=== PATIENT | male | born 1940 | race Caucasian/White ===

== ENCOUNTER 2016-12-04 17:09 | Inpatient (IN) | payer MEDICARE ==
[2016-12-04 17:35] VITALS: BP 144/89
[2016-12-04] MEDS ORDERED: Maalox 30 mL Cup PO PRN (17:51)
[2016-12-04] MEDS ORDERED: Magnesium Hydroxide (MOM) 30 mL UDC PO PRN (17:51)
[2016-12-05] MEDS: Fish Oil 1,000 MG SGL PO SCH ×2 (08:37→08:43)
[2016-12-05] MEDS: Multivitamin Tab PO SCH (08:37)
[2016-12-05] MEDS: Ascorbic Acid/Vit B Complex Tab PO SCH (08:41)
--- NOTE | 2016-12-05 08:47 | History and Physical ---
History of Present Illness - HPI Chief Complaint: psychosis HPI: 76 year old male who presents to [facility] and transfer to [facility] for suicidal ideation. He was recently discharged from [facility]. Patient apparently wanted to kill himself according to the son. Patient has a history of depression. He was noted to have taken Haldol and Benadral along with sleeping pills thus he was brought to [facility] ER. 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 (insomnia) GI: Report: No Pertinent Hx Psych: Report: Anxiety, Depression Musculoskeletal: Report: No Pertinent Hx Rheumatologic: Report: No pertinent Hx Infectious Disease: Report: No Pertinent Hx Renal/: Report: Benign Prostatic Enlarg Endocrine: Report: No Pertinent Hx Dermatology: Report: No Pertinent Hx - Past Surgical History Past Surgical History: No pertinent Hx Family Medical History - Family Member Mother History Unknown: Yes Ethnicity: Unknown Living Status: Unknown Hx Family Cancer: (unknown) Hx Family Coronary Artery Disease: (unknown) Hx Family Congestive Heart Failure: (unknown) Hx Family Hypertension: (unknown) Hx Family Stroke: (unknown) Hx Family Diabetes: (unknown) Hx Family Seizures: (unknown) Hx Family Dementia: (unknown) Hx Family AIDS: (unknown) Hx Family COPD: (unknown) Hx Family Hepatitis: (unknown) Hx Family Psychiatric Problems: (unknown) Hx Family Tuberculosis: (unknown) Other Medical History: unknown Social History Smoke: No Alcohol: None Drugs: None Lives: Alone - Medications Home Medications: Home Medication Medication Instructions Recorded Type Gabapentin 600 mg PO QID 12/31/12 History Propranolol 10 mg PO BID 12/31/12 History QUEtiapine FUMARATE 400 mg PO HS 12/31/12 History Trazodone HCl 100 mg PO HS 12/31/12 History Vistaril 50 mg PO BID 12/31/12 History - Allergies Allergies/Adverse Reactions: Allergies Allergy/AdvReac Type Severity Reaction Status Date / Time Penicillins [PCN] Allergy Unknown UNKNOWN Verified 12/04/16 17:42 Review of Systems - Review of Systems Constitutional: Report: No Significant Eyes: Report: No Significant ENT: Report: No Significant Respiratory: Report: No Significant Cardiovascular: Report: No Significant Gastrointestinal: Report: No Significant Genitourinary: Report: No Significant Musculoskeletal: Report: No Significant Skin: Report: No Significant Neurological: Report: No Significant Physical Exam - Physical Exam HEENT: Report: Ears Nose Throat within normal limits, Pharnyx within normal limits Neck: Report: Within normal limits, Thyromegaly Cardiovascular Systems: Report: +s1/s2 noted, Regular, Rate and Rhythm Respiratory: Report: Breath Sounds are within normal limits, Clear to Auscultation of lung pavon Abdomen: Report: Non-tender to palpation Extremities: Report: Non-tender to palpation. - Assessment Assessment: depression suicidal ideation hypertension hyperlipidemia bph insomnia anxiety disorder - Plan Plan: admit to [facility] for evaluation and treatment.
--- NOTE | 2016-12-06 02:47 | Psychosocial Evaluation ---
DATE OF SERVICE: 12/04/2016 IDENTIFYING DATA: The patient is a 76-year-old male admitted for depression after overdosing on medication. CHIEF COMPLAINT: "I am frustrated." HISTORY OF PRESENT ILLNESS: This is one of multiple psychiatric hospitalizations for this patient who has been diagnosed to have major depressive disorder. The patient is being followed up by me on an outpatient basis. The patient was hospitalized recently at [facility] almost for 20 days and was discharged ____ the day of the discharge, the patient had taken an overdose on medication. The patient's family had to take him to the [facility] from where he has been admitted on 5150. During the evaluation, the patient is tearful and crying and stating that he does not know, he is confused and has been having a lot of anxiety. The patient has a tendency to ask more and more of Ativan, stating that he has pain, Ativan is the only one that has been helping him. The patient's coping skills at this time are noted to be very poor. Sleep and appetite are also noted to be very poor. PAST PSYCHIATRIC HISTORY: Please refer to the above. MEDICAL HISTORY: Physical examination is requested and done by Dr. Blas. SUBSTANCE ABUSE HISTORY: The patient denies use of any drugs or alcohol. LEGAL PROBLEMS: None at this time. STRENGTH AND ASSETS: The patient is motivated. MENTAL STATUS EXAMINATION: The patient is a 76-year-old thin built, superficially cooperative. Eye contact is poor. Mood is depressed. Affect is constricted. Insight and judgment at this time are noted to be very much impaired. Impulse control seems to be poor. Coping skills are also noted to be poor. The patient has been having difficult time to cope with the stress. No side effects to the medications are noted. The patient is alert and oriented x 3. Short-term and long-term memory noted to be fair. The patient is suicidal. The patient has ____. The patient is not homicidal. DIAGNOSTIC IMPRESSION: AXIS I: 1. Major depressive disorder, recurrent and severe. 2. Overdose on medication. AXIS II: None. AXIS III: As per the primary care physician. IMMEDIATE TREATMENT PLAN: The patient is going to be observed on inpatient unit, provided with supportive psychotherapy. The patient is going to be continued on the antidepressant medication. Family discussion is going to be requested. ESTIMATED LENGTH OF STAY: Three to five days. DISCHARGE CRITERIA: When he no longer a threat to self or others and be able to cope up with the stress. [facility]# [id number]
[2016-12-06] MEDS: Multivitamin Tab PO SCH ×2 (08:10→09:21)
[2016-12-06] MEDS: Fish Oil 1,000 MG SGL PO SCH (08:13)
[2016-12-06] MEDS: Ascorbic Acid/Vit B Complex Tab PO SCH ×2 (08:13→09:20)
--- NOTE | 2016-12-06 08:53 | General Progress Note ---
Subjective - Review of Systems Service Date: 12/06/16 Subjective: 76 year old male, complaining of constipation. Has history of BPH and on flomax. Has difficulty urinating. Objective - Physical Exam Vitals and I&O: Vital Signs Temp 98.2 F 12/06/16 06:16 Pulse 102 12/06/16 08:11 Resp 20 12/06/16 06:16 BP 153/86 12/06/16 08:11 Pulse Ox 97 12/06/16 06:16 Intake & Output 12/05/16 12/06/16 12/06/16 18:59 06:59 18:59 Intake Total 700 360 Balance 700 360 Intake: Oral 700 360 Other: # Voids 3 3 # Bowel Movements 0 Active Medications: Current Medications Acetaminophen (Tylenol) 650 mg PO Q4HR PRN PRN Reason: Mild Pain / Temp above 100 Stop: 02/02/17 17:50 Last Admin: 12/06/16 08:11 Dose: 650 mg Al Hydrox/Mg Hydrox/Simethicone (Maalox) 30 ml PO Q4HR PRN PRN Reason: GI DISTRESS Stop: 02/02/17 17:50 Last Admin: 12/06/16 05:25 Dose: 30 ml Aripiprazole (Abilify) 2 mg PO HS YASSINE PRN Reason: Protocol Stop: 02/02/17 20:59 Last Admin: 12/05/16 20:31 Dose: 2 mg Ascorbic Acid (Vitamin C) 500 mg PO DAILY [facility]INE Stop: 02/03/17 08:59 Last Admin: 12/06/16 08:10 Dose: 500 mg Atenolol (Tenormin) 25 mg PO DAILY [facility] Stop: 02/04/17 08:59 Escitalopram Oxalate (Lexapro) 20 mg PO DAILY [facility]INE PRN Reason: Protocol Stop: 02/03/17 08:59 Last Admin: 12/06/16 08:11 Dose: 20 mg Fish Oil ([place] 3) 1,000 mg PO DAILY [facility] Stop: 02/03/17 08:59 Last Admin: 12/06/16 08:13 Dose: Not Given Ibuprofen (Advil) 600 mg PO Q8HR PRN PRN Reason: Pain (Mild) Stop: 02/02/17 18:23 Lisinopril (Zestril) 20 mg PO DAILY [facility] Stop: 02/03/17 08:59 Last Admin: 12/06/16 08:11 Dose: 20 mg Loperamide HCl (Imodium) 2 mg PO Q8HR PRN PRN Reason: Diarrhea Stop: 02/02/17 18:22 Loratadine (Claritin) 10 mg PO DAILY [facility] Stop: 02/03/17 08:59 Last Admin: 12/06/16 08:11 Dose: 10 mg Lorazepam (Ativan) 0.5 mg PO Q4HR PRN; Protocol PRN Reason: Agitation Stop: 01/03/17 17:50 Last Admin: 12/05/16 20:31 Dose: 0.5 mg Magnesium Hydroxide (Milk Of Magnesia) 30 ml PO HS PRN PRN Reason: Constipation Multivitamins/Vitamin C (Theragran) 1 tab PO DAILY [facility] Stop: 02/03/17 08:59 Last Admin: 12/06/16 08:10 Dose: 1 tab Tamsulosin HCl (Flomax) 0.4 mg PO DAILY [facility] Stop: 02/03/17 08:59 Last Admin: 12/06/16 08:11 Dose: 0.4 mg Vitamin B Complex/Vitamin C (Vitamin B Complex W/C) 1 tab PO DAILY [facility] Stop: 02/03/17 08:59 Last Admin: 12/06/16 08:13 Dose: 1 tab Zolpidem Tartrate (Ambien) 5 mg PO HS PRN PRN Reason: Insomnia Stop: 02/02/17 17:50 Last Admin: 12/06/16 02:03 Dose: 5 mg General: Alert, Oriented x3, No acute distress HEENT: Atraumatic, PERRLA, EOMI Neck: Supple Cardiovascular: Regular rate, Normal S1, Normal S2 Lungs: Clear to auscultation Abdomen: Bowel sounds Extremities: no Clubbing, no Cyanosis, no Edema - Procedures Procedures: Procedures Procedure Code Date OTHER GROUP THERAPY 94.44 12/31/12 Assessment/Plan - Assessment Assessment: depression suicidal ideation hypertension elevated ... will add clonidine, will add atenolol 25mg PO daily. hyperlipidemia ... awaiting labwork bph ... awaiting labwork. insomnia ... may add vistaril for insomnia. anxiety disorder constipation ... will order stool softeners, KUB abdomen. - Plan Plan: admit to [facility] for evaluation and treatment.
--- NOTE | 2016-12-06 09:47 | Diagnostic Imaging Report ---
KUB abdominal film (portable) HISTORY: Pain There is a nonspecific gas pattern of nondilated bowel. No free. No air. Small calcifications noted in the lower pelvis most likely related phleboliths. Degenerative changes seen in the spine. IMPRESSION: 1. Nonspecific bowel gas pattern with no acute radiographic abnormalities.
--- NOTE | 2016-12-07 08:39 | General Progress Note ---
Subjective - Review of Systems Service Date: 12/07/16 Subjective: 76 year old male, complaining of constipation. KUB done yesterday was negative. Blood pressure improved on current medication. Will continue to monitor. Objective - Physical Exam Vitals and I&O: Vital Signs Temp 97.9 F 12/07/16 06:49 Pulse 92 12/07/16 06:49 Resp 19 12/07/16 06:49 BP 118/77 12/07/16 06:49 Pulse Ox 96 12/07/16 06:49 Intake & Output 12/06/16 12/07/16 12/07/16 18:59 06:59 18:59 Intake Total 950 480 Balance 950 480 Intake: Oral 950 480 Other: # Voids 4 1 # Bowel Movements 1 Active Medications: Current Medications Acetaminophen (Tylenol) 650 mg PO Q4HR PRN PRN Reason: Mild Pain / Temp above 100 Stop: 02/02/17 17:50 Last Admin: 12/06/16 21:30 Dose: 650 mg Al Hydrox/Mg Hydrox/Simethicone (Maalox) 30 ml PO Q4HR PRN PRN Reason: GI DISTRESS Stop: 02/02/17 17:50 Last Admin: 12/06/16 05:25 Dose: 30 ml Aripiprazole (Abilify) 2 mg PO HS YASSINE PRN Reason: Protocol Stop: 02/02/17 20:59 Last Admin: 12/06/16 20:38 Dose: Not Given Ascorbic Acid (Vitamin C) 500 mg PO DAILY [facility] Stop: 02/03/17 08:59 Last Admin: 12/06/16 09:21 Dose: Not Given Atenolol (Tenormin) 25 mg PO DAILY [facility] Stop: 02/04/17 08:59 Last Admin: 12/06/16 09:16 Dose: 25 mg Escitalopram Oxalate (Lexapro) 20 mg PO DAILY [facility] PRN Reason: Protocol Stop: 02/03/17 08:59 Last Admin: 12/06/16 09:20 Dose: Not Given Fish Oil ([place] 3) 1,000 mg PO DAILY [facility] Stop: 02/03/17 08:59 Last Admin: 12/06/16 08:13 Dose: Not Given Hydroxyzine Pamoate (Vistaril) 25 mg PO HS PRN; Protocol PRN Reason: Insomnia Stop: 02/04/17 08:52 Ibuprofen (Advil) 600 mg PO Q8HR PRN PRN Reason: Pain (Mild) Stop: 02/02/17 18:23 Lisinopril (Zestril) 20 mg PO DAILY [facility] Stop: 02/03/17 08:59 Last Admin: 12/06/16 08:11 Dose: 20 mg Loperamide HCl (Imodium) 2 mg PO Q8HR PRN PRN Reason: Diarrhea Stop: 02/02/17 18:22 Loratadine (Claritin) 10 mg PO DAILY [facility] Stop: 02/03/17 08:59 Last Admin: 12/06/16 09:21 Dose: Not Given Lorazepam (Ativan) 0.5 mg PO Q4HR PRN; Protocol PRN Reason: Agitation Stop: 01/03/17 17:50 Last Admin: 12/07/16 02:50 Dose: 0.5 mg Magnesium Hydroxide (Milk Of Magnesia) 30 ml PO HS PRN PRN Reason: Constipation Multivitamins/Vitamin C (Theragran) 1 tab PO DAILY [facility] Stop: 02/03/17 08:59 Last Admin: 12/06/16 09:21 Dose: Not Given Tamsulosin HCl (Flomax) 0.4 mg PO DAILY [facility] Stop: 02/03/17 08:59 Last Admin: 12/06/16 09:21 Dose: Not Given Vitamin B Complex/Vitamin C (Vitamin B Complex W/C) 1 tab PO DAILY [facility] Stop: 02/03/17 08:59 Last Admin: 12/06/16 09:20 Dose: Not Given Zolpidem Tartrate (Ambien) 5 mg PO HS PRN PRN Reason: Insomnia Stop: 02/02/17 17:50 Last Admin: 12/06/16 02:03 Dose: 5 mg General: Alert, Oriented x3, No acute distress HEENT: Atraumatic, PERRLA, EOMI Neck: Supple Cardiovascular: Regular rate, Normal S1, Normal S2 Lungs: Clear to auscultation Abdomen: Bowel sounds Extremities: no Clubbing, no Cyanosis, no Edema - Procedures Procedures: Procedures Procedure Code Date OTHER GROUP THERAPY 94.44 12/31/12 Assessment/Plan - Problem List Patient Problems: All Active Problems Anxiety (Acute) F41.9 BPH (benign prostatic hyperplasia) (Acute) N40.0 Constipation (Acute) K59.00 Depression (Acute) F32.9 Hyperlipidemia (Acute) E78.5 Hypertension (Acute) I10 Insomnia (Acute) G47.00 Psychosis (Acute) F29 Suicidal ideations (Acute) - Assessment Assessment: depression per psychiatry suicidal ideation hypertension improved ... continue meds and monitor BP. hyperlipidemia ... awaiting labwork bph ... continue Flomax insomnia ... on Ambien will add vistaril PRN. anxiety disorder ... per Psychiatry constipation ... will order stool softeners, KUB negative - Plan Plan: admit to [facility] for evaluation and treatment.
[2016-12-07] MEDS: Ascorbic Acid/Vit B Complex Tab PO SCH (09:05)
[2016-12-07] MEDS: Multivitamin Tab PO SCH (09:12)
[2016-12-07] MEDS: Fish Oil 1,000 MG SGL PO SCH (09:12)
--- NOTE | 2016-12-07 20:57 | Progress Notes ---
DATE: 12/06/2016 SUBJECTIVE: Staff was spoken to. The patient is interviewed. Mood is little bit depressed. Affect is constricted. The patient is isolative and withdrawn. The patient is stating that this hydroxyzine is not helping and ____ helping, not making him to fell comfort, but the patient is stating that he is anxious and he does not feel comfortable. The patient is also complaining of headache at this time. The patient is stating that he is not able to urinate. Coping skills at this time are noted to be very poor. The patient has been ordered to have the Ativan that is going to be given at 0.5 mg b.i.d. p.r.n. I am fully aware that the patient has been having difficultly to deal with his cancer that has been an issue for him. The patient at this time is having difficult time. The patient is going to be placed on the lorazepam 0.5 mg p.o. q.4h. p.r.n. I encouraged to verbalize the concerns rather than to act out. The patient is not ready to be discharged to a lower level of care in view of his acute depression and suicidal ideations ____. PLAN: To continue the patient with the current medications and encouraged the patient to verbalize the concerns rather than to act out. The patient has inability to pass the urine ____ staff, probably they are going to be looking for the straight catheterization. JOB# [id number]
--- NOTE | 2016-12-08 08:36 | General Progress Note ---
Subjective - Review of Systems Service Date: 12/08/16 Subjective: awake alert afebrile. Objective - Physical Exam Vitals and I&O: Vital Signs Temp 98.4 F 12/08/16 06:19 Pulse 79 12/08/16 06:19 Resp 19 12/08/16 06:19 BP 133/79 12/08/16 06:19 Pulse Ox 96 12/08/16 06:19 Intake & Output 12/07/16 12/08/16 12/08/16 18:59 06:59 18:59 Intake Total 900 360 Balance 900 360 Intake: Oral 900 360 Other: # Voids 4 3 # Bowel Movements 1 0 Active Medications: Current Medications Acetaminophen (Tylenol) 650 mg PO Q4HR PRN PRN Reason: Mild Pain / Temp above 100 Stop: 02/02/17 17:50 Last Admin: 12/07/16 09:28 Dose: 650 mg Al Hydrox/Mg Hydrox/Simethicone (Maalox) 30 ml PO Q4HR PRN PRN Reason: GI DISTRESS Stop: 02/02/17 17:50 Last Admin: 12/06/16 05:25 Dose: 30 ml Aripiprazole (Abilify) 2 mg PO HS YASSINE PRN Reason: Protocol Stop: 02/02/17 20:59 Last Admin: 12/07/16 21:02 Dose: Not Given Ascorbic Acid (Vitamin C) 500 mg PO DAILY [facility] Stop: 02/03/17 08:59 Last Admin: 12/07/16 09:12 Dose: Not Given Atenolol (Tenormin) 25 mg PO DAILY [facility] Stop: 02/04/17 08:59 Last Admin: 12/07/16 09:06 Dose: 25 mg Escitalopram Oxalate (Lexapro) 20 mg PO DAILY [facility] PRN Reason: Protocol Stop: 02/03/17 08:59 Last Admin: 12/07/16 09:12 Dose: Not Given Fish Oil ([place] 3) 1,000 mg PO DAILY [facility] Stop: 02/03/17 08:59 Last Admin: 12/07/16 09:12 Dose: Not Given Hydroxyzine Pamoate (Vistaril) 25 mg PO HS PRN; Protocol PRN Reason: Insomnia Stop: 02/04/17 08:52 Ibuprofen (Advil) 600 mg PO Q8HR PRN PRN Reason: Pain (Mild) Stop: 02/02/17 18:23 Lisinopril (Zestril) 20 mg PO DAILY [facility] Stop: 02/03/17 08:59 Last Admin: 12/07/16 09:12 Dose: Not Given Loperamide HCl (Imodium) 2 mg PO Q8HR PRN PRN Reason: Diarrhea Stop: 02/02/17 18:22 Loratadine (Claritin) 10 mg PO DAILY [facility] Stop: 02/03/17 08:59 Last Admin: 12/07/16 09:08 Dose: 10 mg Lorazepam (Ativan) 0.5 mg PO Q4HR PRN; Protocol PRN Reason: Agitation Stop: 01/03/17 17:50 Last Admin: 12/08/16 05:50 Dose: 0.5 mg Magnesium Hydroxide (Milk Of Magnesia) 30 ml PO HS PRN PRN Reason: Constipation Multivitamins/Vitamin C (Theragran) 1 tab PO DAILY [facility] Stop: 02/03/17 08:59 Last Admin: 12/07/16 09:12 Dose: Not Given Tamsulosin HCl (Flomax) 0.4 mg PO DAILY [facility] Stop: 02/03/17 08:59 Last Admin: 12/07/16 09:05 Dose: 0.4 mg Vitamin B Complex/Vitamin C (Vitamin B Complex W/C) 1 tab PO DAILY [facility] Stop: 02/03/17 08:59 Last Admin: 12/07/16 09:05 Dose: 1 tab Zolpidem Tartrate (Ambien) 5 mg PO HS PRN PRN Reason: Insomnia Stop: 02/02/17 17:50 Last Admin: 12/06/16 02:03 Dose: 5 mg General: Alert, Oriented x3, No acute distress HEENT: Atraumatic, PERRLA, EOMI Neck: Supple Cardiovascular: Regular rate, Normal S1, Normal S2 Lungs: Clear to auscultation Abdomen: Bowel sounds Extremities: no Clubbing, no Cyanosis, no Edema - Procedures Procedures: Procedures Procedure Code Date OTHER GROUP THERAPY 94.44 12/31/12 Assessment/Plan - Problem List Patient Problems: All Active Problems Anxiety (Acute) F41.9 BPH (benign prostatic hyperplasia) (Acute) N40.0 Constipation (Acute) K59.00 Depression (Acute) F32.9 Hyperlipidemia (Acute) E78.5 Hypertension (Acute) I10 Insomnia (Acute) G47.00 Psychosis (Acute) F29 Suicidal ideations (Acute) - Assessment Assessment: depression per psychiatry suicidal ideation hypertension improved ... continue meds and monitor BP. hyperlipidemia ... awaiting labwork bph ... continue Flomax insomnia ... on Ambien will add vistaril PRN. anxiety disorder ... per Psychiatry constipation ... will order stool softeners, KUB negative - Plan Plan: admit to [facility] for evaluation and treatment.
[2016-12-08] MEDS: Ascorbic Acid/Vit B Complex Tab PO SCH (08:44)
[2016-12-08] MEDS: Multivitamin Tab PO SCH (08:45)
[2016-12-08] MEDS: Fish Oil 1,000 MG SGL PO SCH (08:45)
--- NOTE | 2016-12-08 10:34 | Progress Notes ---
DATE: 12/07/2016 PSYCHIATRIC PROGRESS NOTE SUBJECTIVE: Staff was spoken to. The patient is interviewed. Mood is noted to be depressed. Affect is constricted. The patient is isolative and withdrawn. Insight and judgment are noted to be still impaired. Impulse control seems to be limited. The patient has been treated with regards to his medications. He does not like to take any hydroxyzine. He is a fixated wrongly on the Ativan. The patient's case has been discussed with ____ with regards to the medication that he has been taking. The patient has been focused on not able to urinate and patient is informed about the straight catheterization. ASSESSMENT: The patient is still depressed and suicidal and is not ready to be discharged to a lower level of care. PLAN: To continue the patient with the supportive therapy. I encouraged the patient to verbalize the concerns rather than to act out. [facility]# [id number]
--- NOTE | 2016-12-09 03:01 | Progress Notes ---
DATE: 12/08/2016 SUBJECTIVE: Staff was spoken to. The patient is interviewed. Mood is noted to be irritable. Affect is constricted. The patient has been having difficult time to cope with the stress. The patient has been pacing on the unit earlier. The patient is stating that he is feeling depressed and anxious and does not know what to do. ASSESSMENT: The patient is still depressed. PLAN: To continue the patient with Lexapro and Abilify and have a family session with his daughter who has the Durable Power of [employer] and on the phone since she is in [place] and plan for possible placement of this patient. JOB# [id number]
--- NOTE | 2016-12-09 08:27 | General Progress Note ---
Subjective - Review of Systems Service Date: 12/09/16 Subjective: awake alert afebrile. Objective - Physical Exam Vitals and I&O: Vital Signs Temp 98.6 F 12/09/16 06:13 Pulse 82 12/09/16 06:13 Resp 19 12/09/16 06:13 BP 130/81 12/09/16 06:13 Pulse Ox 96 12/09/16 06:13 Intake & Output 12/08/16 12/09/16 12/09/16 18:59 06:59 18:59 Intake Total 1400 240 Balance 1400 240 Intake: Oral 1400 240 Other: # Voids 4 3 # Bowel Movements 0 0 Active Medications: Current Medications Acetaminophen (Tylenol) 650 mg PO Q4HR PRN PRN Reason: Mild Pain / Temp above 100 Stop: 02/02/17 17:50 Last Admin: 12/09/16 02:42 Dose: 650 mg Al Hydrox/Mg Hydrox/Simethicone (Maalox) 30 ml PO Q4HR PRN PRN Reason: GI DISTRESS Stop: 02/02/17 17:50 Last Admin: 12/06/16 05:25 Dose: 30 ml Aripiprazole (Abilify) 2 mg PO HS YASSINE PRN Reason: Protocol Stop: 02/02/17 20:59 Last Admin: 12/08/16 21:18 Dose: 2 mg Ascorbic Acid (Vitamin C) 500 mg PO DAILY [facility] Stop: 02/03/17 08:59 Last Admin: 12/08/16 08:45 Dose: Not Given Atenolol (Tenormin) 25 mg PO DAILY [facility] Stop: 02/04/17 08:59 Last Admin: 12/08/16 08:46 Dose: 25 mg Escitalopram Oxalate (Lexapro) 20 mg PO DAILY [facility] PRN Reason: Protocol Stop: 02/03/17 08:59 Last Admin: 12/08/16 08:44 Dose: 20 mg Fish Oil ([place] 3) 1,000 mg PO DAILY [facility] Stop: 02/03/17 08:59 Last Admin: 12/08/16 08:45 Dose: 1,000 mg Hydroxyzine Pamoate (Vistaril) 25 mg PO HS PRN; Protocol PRN Reason: Insomnia Stop: 02/04/17 08:52 Ibuprofen (Advil) 600 mg PO Q8HR PRN PRN Reason: Pain (Mild) Stop: 02/02/17 18:23 Lisinopril (Zestril) 20 mg PO DAILY [facility] Stop: 02/03/17 08:59 Last Admin: 12/08/16 09:15 Dose: Not Given Loperamide HCl (Imodium) 2 mg PO Q8HR PRN PRN Reason: Diarrhea Stop: 02/02/17 18:22 Loratadine (Claritin) 10 mg PO DAILY [facility] Stop: 02/03/17 08:59 Last Admin: 12/08/16 08:47 Dose: 10 mg Lorazepam (Ativan) 0.5 mg PO Q4HR PRN; Protocol PRN Reason: Agitation Stop: 01/03/17 17:50 Last Admin: 12/09/16 03:12 Dose: 0.5 mg Magnesium Hydroxide (Milk Of Magnesia) 30 ml PO HS PRN PRN Reason: Constipation Multivitamins/Vitamin C (Theragran) 1 tab PO DAILY [facility] Stop: 02/03/17 08:59 Last Admin: 12/08/16 08:45 Dose: 1 tab Tamsulosin HCl (Flomax) 0.4 mg PO DAILY [facility] Stop: 02/03/17 08:59 Last Admin: 12/08/16 08:45 Dose: 0.4 mg Vitamin B Complex/Vitamin C (Vitamin B Complex W/C) 1 tab PO DAILY [facility] Stop: 02/03/17 08:59 Last Admin: 12/08/16 08:44 Dose: Not Given Zolpidem Tartrate (Ambien) 5 mg PO HS PRN PRN Reason: Insomnia Stop: 02/02/17 17:50 Last Admin: 12/06/16 02:03 Dose: 5 mg General: Alert, Oriented x3, No acute distress HEENT: Atraumatic, PERRLA, EOMI Neck: Supple Cardiovascular: Regular rate, Normal S1, Normal S2 Lungs: Clear to auscultation Abdomen: Bowel sounds Extremities: no Clubbing, no Cyanosis, no Edema - Procedures Procedures: Procedures Procedure Code Date OTHER GROUP THERAPY 94.44 12/31/12 Assessment/Plan - Problem List Patient Problems: All Active Problems Anxiety (Acute) F41.9 BPH (benign prostatic hyperplasia) (Acute) N40.0 Constipation (Acute) K59.00 Depression (Acute) F32.9 Hyperlipidemia (Acute) E78.5 Hypertension (Acute) I10 Insomnia (Acute) G47.00 Psychosis (Acute) F29 Suicidal ideations (Acute) - Assessment Assessment: depression per psychiatry suicidal ideation hypertension improved ... continue meds and monitor BP. hyperlipidemia ... awaiting labwork bph ... continue Flomax insomnia ... on Ambien will add vistaril PRN. anxiety disorder ... per Psychiatry constipation ... will order stool softeners, KUB negative - Plan Plan: admit to [facility] for evaluation and treatment.
[2016-12-09] MEDS: Fish Oil 1,000 MG SGL PO SCH (09:35)
[2016-12-09] MEDS: Multivitamin Tab PO SCH (09:35)
[2016-12-09] MEDS: Ascorbic Acid/Vit B Complex Tab PO SCH (09:36)
--- NOTE | 2016-12-10 03:51 | Progress Notes ---
DATE: 12/09/2016 SUBJECTIVE: Staff was spoken to. The patient is interviewed. Mood is noted to be depressed. Affect is constricted. The patient is refusing to comply with the medication. The patient is stating he is not depressed. He does not need any Lexapro. The patient has been focused only on the Tylenol and Ativan. The patient's insight and judgment remain very much impaired. At this time, impulse control is also noted to be very poor. The patient is gravely disabled. ASSESSMENT: The patient is still depressed. PLAN: To continue the patient with supportive therapy, encouraged the patient to verbalize the concerns rather than to act out. This behavior and possibly, the patient is going to be requested to be placed in a shelter facility. JOB# [id number]
--- NOTE | 2016-12-10 08:37 | General Progress Note ---
Subjective - Review of Systems Service Date: 12/10/16 Subjective: awake alert afebrile. Objective - Physical Exam Vitals and I&O: Vital Signs Temp 98.2 F 12/10/16 06:37 Pulse 64 12/10/16 06:37 Resp 20 12/10/16 06:37 BP 126/65 12/10/16 06:37 Pulse Ox 96 12/10/16 06:37 Intake & Output 12/09/16 12/10/16 12/10/16 18:59 06:59 18:59 Intake Total 800 240 Balance 800 240 Intake: Oral 800 240 Other: # Voids 3 3 # Bowel Movements 1 0 Active Medications: Current Medications Acetaminophen (Tylenol) 650 mg PO Q4HR PRN PRN Reason: Mild Pain / Temp above 100 Stop: 02/02/17 17:50 Last Admin: 12/10/16 05:07 Dose: 650 mg Al Hydrox/Mg Hydrox/Simethicone (Maalox) 30 ml PO Q4HR PRN PRN Reason: GI DISTRESS Stop: 02/02/17 17:50 Last Admin: 12/06/16 05:25 Dose: 30 ml Aripiprazole (Abilify) 2 mg PO HS YASSINE PRN Reason: Protocol Stop: 02/02/17 20:59 Last Admin: 12/09/16 20:30 Dose: 2 mg Ascorbic Acid (Vitamin C) 500 mg PO DAILY YASSINE Stop: 02/03/17 08:59 Last Admin: 12/09/16 09:35 Dose: 500 mg Atenolol (Tenormin) 25 mg PO DAILY YASSINE Stop: 02/04/17 08:59 Last Admin: 12/09/16 09:35 Dose: 25 mg Escitalopram Oxalate (Lexapro) 20 mg PO DAILY YASSINE PRN Reason: Protocol Stop: 02/03/17 08:59 Last Admin: 12/09/16 09:35 Dose: Not Given Fish Oil ([place] 3) 1,000 mg PO DAILY YASSINE Stop: 02/03/17 08:59 Last Admin: 12/09/16 09:35 Dose: 1,000 mg Hydroxyzine Pamoate (Vistaril) 25 mg PO HS PRN; Protocol PRN Reason: Insomnia Stop: 02/04/17 08:52 Ibuprofen (Advil) 600 mg PO Q8HR PRN PRN Reason: Pain (Mild) Stop: 02/02/17 18:23 Lisinopril (Zestril) 20 mg PO DAILY YASSINE Stop: 02/03/17 08:59 Last Admin: 12/09/16 09:35 Dose: 20 mg Loperamide HCl (Imodium) 2 mg PO Q8HR PRN PRN Reason: Diarrhea Stop: 02/02/17 18:22 Loratadine (Claritin) 10 mg PO DAILY YASSINE Stop: 02/03/17 08:59 Last Admin: 12/09/16 09:35 Dose: 10 mg Lorazepam (Ativan) 0.5 mg PO Q4HR PRN; Protocol PRN Reason: Agitation Stop: 01/03/17 17:50 Last Admin: 12/10/16 04:51 Dose: 0.5 mg Magnesium Hydroxide (Milk Of Magnesia) 30 ml PO HS PRN PRN Reason: Constipation Multivitamins/Vitamin C (Theragran) 1 tab PO DAILY YASSINE Stop: 02/03/17 08:59 Last Admin: 12/09/16 09:35 Dose: 1 tab Tamsulosin HCl (Flomax) 0.4 mg PO DAILY YASSINE Stop: 02/03/17 08:59 Last Admin: 12/09/16 09:35 Dose: 0.4 mg Vitamin B Complex/Vitamin C (Vitamin B Complex W/C) 1 tab PO DAILY YASSINE Stop: 02/03/17 08:59 Last Admin: 12/09/16 09:36 Dose: 1 tab Zolpidem Tartrate (Ambien) 5 mg PO HS PRN PRN Reason: Insomnia Stop: 02/02/17 17:50 Last Admin: 12/09/16 20:32 Dose: 5 mg General: Alert, Oriented x3, No acute distress HEENT: Atraumatic, PERRLA, EOMI Neck: Supple Cardiovascular: Regular rate, Normal S1, Normal S2 Lungs: Clear to auscultation Abdomen: Bowel sounds Extremities: no Clubbing, no Cyanosis, no Edema - Procedures Procedures: Procedures Procedure Code Date OTHER GROUP THERAPY 94.44 12/31/12 Assessment/Plan - Problem List Patient Problems: All Active Problems Anxiety (Acute) F41.9 BPH (benign prostatic hyperplasia) (Acute) N40.0 Constipation (Acute) K59.00 Depression (Acute) F32.9 Hyperlipidemia (Acute) E78.5 Hypertension (Acute) I10 Insomnia (Acute) G47.00 Psychosis (Acute) F29 Suicidal ideations (Acute) - Assessment Assessment: depression per psychiatry ... continue current treatment suicidal ideation ... continue current treatment hypertension improved ... continue meds and monitor BP. hyperlipidemia ... awaiting labwork bph ... continue Flomax insomnia ... on Ambien will add vistaril PRN. anxiety disorder ... per Psychiatry constipation ... will order stool softeners, KUB negative - Plan Plan: admit to [facility] for evaluation and treatment. Nutritional Asmnt/Malnutr-PDOC - Dietary Evaluation Malnutrition Findings (Please click <Entered> for more info): Nutritional Asmnt/Malnutrition Start: 12/09/16 14: 18 Text: Status: Complete Freq: Document 12/09/16 14:18 GSUN (Rec: 12/09/16 14:26 GSUN [email or web address]) Nutritional Asmnt/Malnutrition Patient General Information Nutritional Screening Moderate Risk Screening Diagnosis Major depressive disorder, recurrent and severe Pertinent Medical Hx/Surgical Hx HTN, insomnia, anxiety, depression, benign prostatic enlarge Subjective Information 76 year old male. Pt was agitated and ofcused on pain meds during visit, unable to obtain much meaningful information. Attempted to confirm food allergy to olmedo peppers and discuss with pt inadequate PO intake and importace of nutrition, unsucessful. Pt denied nutritional concerns at this time. Pt soon stood up and walked away. Limited physical assessment, no severe muscle fat wasting noted. Avg PO intake 59% of past 11 meals since adm, meeting 68% lower end kcal and 78% lower end prot needs. Current Diet Order/ Nutrition Support [facility] soft ground Pertinent Medications Vitamin C, [place] 3, Imodium, MOM, Theragran, vitamin B Complex W/C Pertinent Labs No current labs. Nutritional Hx/Data Height 1.83 m Height (Calculated Centimeters) 182.9 Current Weight (lbs) 79.832 kg Weight (Calculated Kilograms) 79.8 Weight (Calculated Grams) 20278.3 [place] Body Weight 178 Weight Status Approriate GI Symptoms Food Allergies Yes Skin Integrity/Comment: Natalio 20. Skin intact. Current %PO Fair (50-74%) Estimated Nutritional Goals BEE in Kcals: Using Current wt Calories/Kcals/Kg CBW 176lb/80kg Kcals Calculated 1999-2400kcal (25-30kcal/kg) Protein: Using Current wt Protein Calculated 80g (1g/kg) Fluid: ml 2000-2400ml (1ml/kcal) Nutritional Problem 1. Problem Problem Inadequate oral food beverage intake related to Etiology possibly cognition aeb Signs/Symptoms: meeting 68% lower end kcal and 78% lower end prot needs Intervention/Recommendation Comments 1. Recommend health shake TID. Avg PO intake is inadequate, meeting 68% lower end kcal and 78% lower end prot needs. Expected Outcomes/Goals Expected Outcomes/Goals 1. PO intake to meet at least 75% of estimated nutritional needs.
[2016-12-10] MEDS: Fish Oil 1,000 MG SGL PO SCH (09:13)
[2016-12-10] MEDS: Multivitamin Tab PO SCH (09:13)
[2016-12-10] MEDS: Ascorbic Acid/Vit B Complex Tab PO SCH (11:33)
--- NOTE | 2016-12-11 06:11 | Progress Notes ---
DATE: 12/10/2016 SUBJECTIVE: Staff was spoken to. The patient is interviewed. Mood is noted to be depressed. Affect is constricted. The patient is isolative and withdrawn. The patient is stating ____ anxiety and wants more and more of Ativan and Tylenol. Coping skills at this time are noted to be very poor. The patient has been presenting with the tremor, but there is nothing to be really anxious about anything. Initially, we thought that the patient has been having anxiety with regards to the cancer diagnosis. The patient seems to be more med seeking at this time. ASSESSMENT: The patient is still depressed. PLAN: To continue the patient with Lexapro and low dose of Ativan and follow the patient. Possibly patient is in need of placement. JOB# [id number]
--- NOTE | 2016-12-11 08:20 | General Progress Note ---
Subjective - Review of Systems Service Date: 12/11/16 Subjective: awake alert afebrile. Objective - Physical Exam Vitals and I&O: Vital Signs Temp 98.3 F 12/11/16 06:22 Pulse 88 12/11/16 06:22 Resp 20 12/11/16 06:22 BP 142/78 12/11/16 06:22 Pulse Ox 97 12/11/16 06:22 Intake & Output 12/10/16 12/11/16 12/11/16 18:59 06:59 18:59 Intake Total 700 120 Balance 700 120 Intake: Oral 700 120 Other: # Voids 3 3 # Bowel Movements 0 Active Medications: Current Medications Acetaminophen (Tylenol) 650 mg PO Q4HR PRN PRN Reason: Mild Pain / Temp above 100 Stop: 02/02/17 17:50 Last Admin: 12/11/16 02:01 Dose: 650 mg Al Hydrox/Mg Hydrox/Simethicone (Maalox) 30 ml PO Q4HR PRN PRN Reason: GI DISTRESS Stop: 02/02/17 17:50 Last Admin: 12/06/16 05:25 Dose: 30 ml Aripiprazole (Abilify) 2 mg PO HS YASSINE PRN Reason: Protocol Stop: 02/02/17 20:59 Last Admin: 12/10/16 21:22 Dose: Not Given Ascorbic Acid (Vitamin C) 500 mg PO DAILY YASSINE Stop: 02/03/17 08:59 Last Admin: 12/10/16 09:14 Dose: 500 mg Atenolol (Tenormin) 25 mg PO DAILY YASSINE Stop: 02/04/17 08:59 Last Admin: 12/10/16 09:14 Dose: 25 mg Escitalopram Oxalate (Lexapro) 20 mg PO DAILY YASSINE PRN Reason: Protocol Stop: 02/03/17 08:59 Last Admin: 12/10/16 09:14 Dose: 20 mg Fish Oil ([place] 3) 1,000 mg PO DAILY YASSINE Stop: 02/03/17 08:59 Last Admin: 12/10/16 09:13 Dose: 1,000 mg Hydroxyzine Pamoate (Vistaril) 25 mg PO HS PRN; Protocol PRN Reason: Insomnia Stop: 02/04/17 08:52 Ibuprofen (Advil) 600 mg PO Q8HR PRN PRN Reason: Pain (Mild) Stop: 02/02/17 18:23 Lisinopril (Zestril) 20 mg PO DAILY YASSINE Stop: 02/03/17 08:59 Last Admin: 12/10/16 09:14 Dose: 20 mg Loperamide HCl (Imodium) 2 mg PO Q8HR PRN PRN Reason: Diarrhea Stop: 02/02/17 18:22 Loratadine (Claritin) 10 mg PO DAILY YASSINE Stop: 02/03/17 08:59 Last Admin: 12/10/16 09:13 Dose: 10 mg Lorazepam (Ativan) 0.5 mg PO Q4HR PRN; Protocol PRN Reason: Agitation Stop: 01/03/17 17:50 Last Admin: 12/11/16 06:17 Dose: 0.5 mg Multivitamins/Vitamin C (Theragran) 1 tab PO DAILY YASSINE Stop: 02/03/17 08:59 Last Admin: 12/10/16 09:13 Dose: 1 tab Tamsulosin HCl (Flomax) 0.4 mg PO DAILY YASSINE Stop: 02/03/17 08:59 Last Admin: 12/10/16 09:13 Dose: 0.4 mg Vitamin B Complex/Vitamin C (Vitamin B Complex W/C) 1 tab PO DAILY YASSINE Stop: 02/03/17 08:59 Last Admin: 12/10/16 11:33 Dose: 1 tab Zolpidem Tartrate (Ambien) 5 mg PO HS PRN PRN Reason: Insomnia Stop: 02/02/17 17:50 Last Admin: 12/10/16 21:22 Dose: 5 mg General: Alert, Oriented x3, No acute distress HEENT: Atraumatic, PERRLA, EOMI Neck: Supple Cardiovascular: Regular rate, Normal S1, Normal S2 Lungs: Clear to auscultation Abdomen: Bowel sounds Extremities: no Clubbing, no Cyanosis, no Edema - Procedures Procedures: Procedures Procedure Code Date OTHER GROUP THERAPY 94.44 12/31/12 Assessment/Plan - Problem List Patient Problems: All Active Problems Anxiety (Acute) F41.9 BPH (benign prostatic hyperplasia) (Acute) N40.0 Constipation (Acute) K59.00 Depression (Acute) F32.9 Hyperlipidemia (Acute) E78.5 Hypertension (Acute) I10 Insomnia (Acute) G47.00 Psychosis (Acute) F29 Suicidal ideations (Acute) - Assessment Assessment: depression per psychiatry ... continue current treatment suicidal ideation ... continue current treatment hypertension improved ... continue meds and monitor BP. hyperlipidemia ... awaiting labwork bph ... continue Flomax insomnia ... on Ambien will add vistaril PRN. anxiety disorder ... per Psychiatry constipation ... will order stool softeners, KUB negative - Plan Plan: admit to [facility] for evaluation and treatment. Nutritional Asmnt/Malnutr-PDOC - Dietary Evaluation Malnutrition Findings (Please click <Entered> for more info): Nutritional Asmnt/Malnutrition Start: 12/09/16 14: 18 Text: Status: Complete Freq: Document 12/09/16 14:18 GSUN (Rec: 12/09/16 14:26 GSUN [email or web address]) Nutritional Asmnt/Malnutrition Patient General Information Nutritional Screening Moderate Risk Screening Diagnosis Major depressive disorder, recurrent and severe Pertinent Medical Hx/Surgical Hx HTN, insomnia, anxiety, depression, benign prostatic enlarge Subjective Information 76 year old male. Pt was agitated and ofcused on pain meds during visit, unable to obtain much meaningful information. Attempted to confirm food allergy to [place] peppers and discuss with pt inadequate PO intake and importace of nutrition, unsucessful. Pt denied nutritional concerns at this time. Pt soon stood up and walked away. Limited physical assessment, no severe muscle fat wasting noted. Avg PO intake 59% of past 11 meals since adm, meeting 68% lower end kcal and 78% lower end prot needs. Current Diet Order/ Nutrition Support [facility] soft ground Pertinent Medications Vitamin C, [place] 3, Imodium, MOM, Theragran, vitamin B Complex W/C Pertinent Labs No current labs. Nutritional Hx/Data Height 1.83 m Height (Calculated Centimeters) 182.9 Current Weight (lbs) 79.832 kg Weight (Calculated Kilograms) 79.8 Weight (Calculated Grams) 45131.3 [place] Body Weight 178 Weight Status Approriate GI Symptoms Food Allergies Yes Skin Integrity/Comment: Natalio 20. Skin intact. Current %PO Fair (50-74%) Estimated Nutritional Goals BEE in Kcals: Using Current wt Calories/Kcals/Kg CBW 176lb/80kg Kcals Calculated 2000-2400kcal (25-30kcal/kg) Protein: Using Current wt Protein Calculated 80g (1g/kg) Fluid: ml 2000-2400ml (1ml/kcal) Nutritional Problem 1. Problem Problem Inadequate oral food beverage intake related to Etiology possibly cognition aeb Signs/Symptoms: meeting 68% lower end kcal and 78% lower end prot needs Intervention/Recommendation Comments 1. Recommend health shake TID. Avg PO intake is inadequate, meeting 68% lower end kcal and 78% lower end prot needs. Expected Outcomes/Goals Expected Outcomes/Goals 1. PO intake to meet at least 75% of estimated nutritional needs.
[2016-12-11] MEDS: Multivitamin Tab PO SCH (08:32)
[2016-12-11] MEDS: Fish Oil 1,000 MG SGL PO SCH (08:33)
[2016-12-11] MEDS: Ascorbic Acid/Vit B Complex Tab PO SCH (08:38)
--- NOTE | 2016-12-11 23:13 | Progress Notes ---
DATE: 12/11/2016 SUBJECTIVE: Staff was spoken to. The patient is interviewed. Mood is depressed. Affect is constricted. Insight and judgment are still impaired. The patient is isolative and withdrawn, not able to get out of the bed. The patient has been stating it is the anxiety that is bothering him and he does not want to be on antidepressant medication. Coping skills are noted to be very poor. The patient has been isolative and withdrawn. ASSESSMENT: The patient is still depressed and suicidal. PLAN: To encourage the patient to comply with the treatment rather than to act out. JOB# [id number]
[2016-12-12] MEDS: Ascorbic Acid/Vit B Complex Tab PO SCH (08:17)
[2016-12-12] MEDS: Fish Oil 1,000 MG SGL PO SCH (08:19)
[2016-12-12] MEDS: Multivitamin Tab PO SCH (08:19)
--- NOTE | 2016-12-12 09:11 | General Progress Note ---
Subjective - Review of Systems Service Date: 12/12/16 Subjective: awake alert afebrile. Objective - Physical Exam Vitals and I&O: Vital Signs Temp 97 F 12/12/16 06:16 Pulse 85 12/12/16 08:08 Resp 20 12/12/16 06:16 BP 109/66 12/12/16 08:08 Pulse Ox 96 12/12/16 06:16 Intake & Output 12/11/16 12/12/16 12/12/16 18:59 06:59 18:59 Intake Total 1200 120 Balance 1200 120 Intake: Oral 1200 120 Other: # Voids 3 # Bowel Movements 1 Active Medications: Current Medications Acetaminophen (Tylenol) 650 mg PO Q4HR PRN PRN Reason: Mild Pain / Temp above 100 Stop: 02/02/17 17:50 Last Admin: 12/12/16 01:02 Dose: 650 mg Al Hydrox/Mg Hydrox/Simethicone (Maalox) 30 ml PO Q4HR PRN PRN Reason: GI DISTRESS Stop: 02/02/17 17:50 Last Admin: 12/06/16 05:25 Dose: 30 ml Aripiprazole (Abilify) 2 mg PO HS YASSINE PRN Reason: Protocol Stop: 02/02/17 20:59 Last Admin: 12/11/16 20:45 Dose: Not Given Ascorbic Acid (Vitamin C) 500 mg PO DAILY YASSINE Stop: 02/03/17 08:59 Last Admin: 12/12/16 08:18 Dose: 500 mg Atenolol (Tenormin) 25 mg PO DAILY YASSINE Stop: 02/04/17 08:59 Last Admin: 12/12/16 08:08 Dose: Not Given Escitalopram Oxalate (Lexapro) 20 mg PO DAILY YASSINE PRN Reason: Protocol Stop: 02/03/17 08:59 Last Admin: 12/12/16 08:18 Dose: 20 mg Fish Oil ([place] 3) 1,000 mg PO DAILY YASSINE Stop: 02/03/17 08:59 Last Admin: 12/12/16 08:19 Dose: 1,000 mg Hydroxyzine Pamoate (Vistaril) 25 mg PO HS PRN; Protocol PRN Reason: Insomnia Stop: 02/04/17 08:52 Ibuprofen (Advil) 600 mg PO Q8HR PRN PRN Reason: Pain (Mild) Stop: 02/02/17 18:23 Lisinopril (Zestril) 20 mg PO DAILY YASSINE Stop: 02/03/17 08:59 Last Admin: 12/12/16 08:08 Dose: Not Given Loperamide HCl (Imodium) 2 mg PO Q8HR PRN PRN Reason: Diarrhea Stop: 02/02/17 18:22 Loratadine (Claritin) 10 mg PO DAILY YASSINE Stop: 02/03/17 08:59 Last Admin: 12/12/16 08:19 Dose: 10 mg Lorazepam (Ativan) 0.5 mg PO Q4HR PRN; Protocol PRN Reason: Agitation Stop: 01/03/17 17:50 Last Admin: 12/12/16 04:38 Dose: 0.5 mg Multivitamins/Vitamin C (Theragran) 1 tab PO DAILY YASSINE Stop: 02/03/17 08:59 Last Admin: 12/12/16 08:19 Dose: Not Given Tamsulosin HCl (Flomax) 0.4 mg PO DAILY YASSINE Stop: 02/03/17 08:59 Last Admin: 12/12/16 08:19 Dose: 0.4 mg Vitamin B Complex/Vitamin C (Vitamin B Complex W/C) 1 tab PO DAILY YASSINE Stop: 02/03/17 08:59 Last Admin: 12/12/16 08:17 Dose: Not Given Zolpidem Tartrate (Ambien) 5 mg PO HS PRN PRN Reason: Insomnia Stop: 02/02/17 17:50 Last Admin: 12/12/16 01:03 Dose: 5 mg General: Alert, Oriented x3, No acute distress HEENT: Atraumatic, PERRLA, EOMI Neck: Supple Cardiovascular: Regular rate, Normal S1, Normal S2 Lungs: Clear to auscultation Abdomen: Bowel sounds Extremities: no Clubbing, no Cyanosis, no Edema - Procedures Procedures: Procedures Procedure Code Date OTHER GROUP THERAPY 94.44 12/31/12 Assessment/Plan - Problem List Patient Problems: All Active Problems Anxiety (Acute) F41.9 BPH (benign prostatic hyperplasia) (Acute) N40.0 Constipation (Acute) K59.00 Depression (Acute) F32.9 Hyperlipidemia (Acute) E78.5 Hypertension (Acute) I10 Insomnia (Acute) G47.00 Psychosis (Acute) F29 Suicidal ideations (Acute) - Assessment Assessment: depression per psychiatry ... continue current treatment suicidal ideation ... continue current treatment hypertension improved ... continue meds and monitor BP. hyperlipidemia ... awaiting labwork bph ... continue Flomax insomnia ... on Ambien will add vistaril PRN. anxiety disorder ... per Psychiatry constipation ... will order stool softeners, KUB negative - Plan Plan: continue current treatment. Nutritional Asmnt/Malnutr-PDOC - Dietary Evaluation Malnutrition Findings (Please click <Entered> for more info): Nutritional Asmnt/Malnutrition Start: 12/09/16 14: 18 Text: Status: Complete Freq: Document 12/09/16 14:18 GSUN (Rec: 12/09/16 14:26 GSUN [email or web address]) Nutritional Asmnt/Malnutrition Patient General Information Nutritional Screening Moderate Risk Screening Diagnosis Major depressive disorder, recurrent and severe Pertinent Medical Hx/Surgical Hx HTN, insomnia, anxiety, depression, benign prostatic enlarge Subjective Information 76 year old male. Pt was agitated and ofcused on pain meds during visit, unable to obtain much meaningful information. Attempted to confirm food allergy to ol[place] peppers and discuss with pt inadequate PO intake and importace of nutrition, unsucessful. Pt denied nutritional concerns at this time. Pt soon stood up and walked away. Limited physical assessment, no severe muscle fat wasting noted. Avg PO intake 59% of past 11 meals since adm, meeting 68% lower end kcal and 78% lower end prot needs. Current Diet Order/ Nutrition Support [facility] soft ground Pertinent Medications Vitamin C, [place] 3, Imodium, MOM, Theragran, vitamin B Complex W/C Pertinent Labs No current labs. Nutritional Hx/Data Height 1.83 m Height (Calculated Centimeters) 182.9 Current Weight (lbs) 79.832 kg Weight (Calculated Kilograms) 79.8 Weight (Calculated Grams) 95827.3 [place] Body Weight 178 Weight Status Approriate GI Symptoms Food Allergies Yes Skin Integrity/Comment: Natalio 20. Skin intact. Current %PO Fair (50-74%) Estimated Nutritional Goals BEE in Kcals: Using Current wt Calories/Kcals/Kg CBW 176lb/80kg Kcals Calculated 2000-2400kcal (25-30kcal/kg) Protein: Using Current wt Protein Calculated 80g (1g/kg) Fluid: ml 2000-2400ml (1ml/kcal) Nutritional Problem 1. Problem Problem Inadequate oral food beverage intake related to Etiology possibly cognition aeb Signs/Symptoms: meeting 68% lower end kcal and 78% lower end prot needs Intervention/Recommendation Comments 1. Recommend health shake TID. Avg PO intake is inadequate, meeting 68% lower end kcal and 78% lower end prot needs. Expected Outcomes/Goals Expected Outcomes/Goals 1. PO intake to meet at least 75% of estimated nutritional needs.
--- NOTE | 2016-12-13 05:32 | Progress Notes ---
DATE: 12/12/2016 SUBJECTIVE: Staff was spoken to. The patient is interviewed. Mood is noted to be depressed. Affect is constricted. The patient's coping skills are noted to be very poor. The patient is refusing to comply with the treatment. The patient has been isolative and constantly stating that he is anxious. He needs more medication for anxiety. Apart from anxiety medication the patient is not keen on taking any of the medications. The patient's coping skills at this time are noted to be very poor. ASSESSMENT: The patient is still impulsive and not able to contract for safety. PLAN: To continue the patient with supportive therapy. I encouraged the patient to verbalize the concerns rather than to act out. Since the patient is not able to care for herself, possibly patient is going to be looked into placement into a correction facility. JOB# [id number]
--- NOTE | 2016-12-13 07:54 | General Progress Note ---
Subjective - Review of Systems Service Date: 12/13/16 Subjective: awake alert afebrile. Objective - Physical Exam Vitals and I&O: Vital Signs Temp 97.3 F 12/13/16 06:41 Pulse 96 12/13/16 06:41 Resp 20 12/13/16 06:41 BP 135/74 12/13/16 06:41 Pulse Ox 97 12/13/16 06:41 Intake & Output 12/12/16 12/13/16 12/13/16 18:59 06:59 18:59 Intake Total 1000 120 Balance 1000 120 Intake: Oral 1000 120 Other: # Voids 3 3 # Bowel Movements 1 Active Medications: Current Medications Acetaminophen (Tylenol) 650 mg PO Q4HR PRN PRN Reason: Mild Pain / Temp above 100 Stop: 02/02/17 17:50 Last Admin: 12/13/16 03:45 Dose: 650 mg Al Hydrox/Mg Hydrox/Simethicone (Maalox) 30 ml PO Q4HR PRN PRN Reason: GI DISTRESS Stop: 02/02/17 17:50 Last Admin: 12/06/16 05:25 Dose: 30 ml Aripiprazole (Abilify) 2 mg PO HS YASSINE PRN Reason: Protocol Stop: 02/02/17 20:59 Last Admin: 12/12/16 21:47 Dose: 2 mg Ascorbic Acid (Vitamin C) 500 mg PO DAILY YASSINE Stop: 02/03/17 08:59 Last Admin: 12/12/16 08:18 Dose: 500 mg Atenolol (Tenormin) 25 mg PO DAILY YASSINE Stop: 02/04/17 08:59 Last Admin: 12/12/16 08:08 Dose: Not Given Escitalopram Oxalate (Lexapro) 20 mg PO DAILY YASSINE PRN Reason: Protocol Stop: 02/03/17 08:59 Last Admin: 12/12/16 08:18 Dose: 20 mg Fish Oil ([place] 3) 1,000 mg PO DAILY YASSINE Stop: 02/03/17 08:59 Last Admin: 12/12/16 08:19 Dose: 1,000 mg Hydroxyzine Pamoate (Vistaril) 25 mg PO HS PRN; Protocol PRN Reason: Insomnia Stop: 02/04/17 08:52 Ibuprofen (Advil) 600 mg PO Q8HR PRN PRN Reason: Pain (Mild) Stop: 02/02/17 18:23 Lisinopril (Zestril) 20 mg PO DAILY YASSINE Stop: 02/03/17 08:59 Last Admin: 12/12/16 08:08 Dose: Not Given Loperamide HCl (Imodium) 2 mg PO Q8HR PRN PRN Reason: Diarrhea Stop: 02/02/17 18:22 Loratadine (Claritin) 10 mg PO DAILY YASSINE Stop: 02/03/17 08:59 Last Admin: 12/12/16 08:19 Dose: 10 mg Lorazepam (Ativan) 0.5 mg PO Q4HR PRN; Protocol PRN Reason: Agitation Stop: 01/03/17 17:50 Last Admin: 12/12/16 18:51 Dose: 0.5 mg Multivitamins/Vitamin C (Theragran) 1 tab PO DAILY YASSINE Stop: 02/03/17 08:59 Last Admin: 12/12/16 08:19 Dose: Not Given Tamsulosin HCl (Flomax) 0.4 mg PO DAILY YASSINE Stop: 02/03/17 08:59 Last Admin: 12/12/16 08:19 Dose: 0.4 mg Vitamin B Complex/Vitamin C (Vitamin B Complex W/C) 1 tab PO DAILY YASSINE Stop: 02/03/17 08:59 Last Admin: 12/12/16 08:17 Dose: Not Given Zolpidem Tartrate (Ambien) 5 mg PO HS PRN PRN Reason: Insomnia Stop: 02/02/17 17:50 Last Admin: 12/13/16 00:11 Dose: 5 mg General: Alert, Oriented x3, No acute distress HEENT: Atraumatic, PERRLA, EOMI Neck: Supple Cardiovascular: Regular rate, Normal S1, Normal S2 Lungs: Clear to auscultation Abdomen: Bowel sounds Extremities: no Clubbing, no Cyanosis, no Edema - Procedures Procedures: Procedures Procedure Code Date OTHER GROUP THERAPY 94.44 12/31/12 Assessment/Plan - Problem List Patient Problems: All Active Problems Anxiety (Acute) F41.9 BPH (benign prostatic hyperplasia) (Acute) N40.0 Constipation (Acute) K59.00 Depression (Acute) F32.9 Hyperlipidemia (Acute) E78.5 Hypertension (Acute) I10 Insomnia (Acute) G47.00 Psychosis (Acute) F29 Suicidal ideations (Acute) - Assessment Assessment: depression per psychiatry ... continue current treatment suicidal ideation ... continue current treatment hypertension improved ... continue meds and monitor BP. hyperlipidemia ... awaiting labwork bph ... continue Flomax insomnia ... on Ambien will add vistaril PRN. anxiety disorder ... per Psychiatry constipation ... will order stool softeners, KUB negative - Plan Plan: continue current treatment. Nutritional Asmnt/Malnutr-PDOC - Dietary Evaluation Malnutrition Findings (Please click <Entered> for more info): Nutritional Asmnt/Malnutrition Start: 12/09/16 14: 18 Text: Status: Complete Freq: Document 12/09/16 14:18 GSUN (Rec: 12/09/16 14:26 GSUN [email or web address]) Nutritional Asmnt/Malnutrition Patient General Information Nutritional Screening Moderate Risk Screening Diagnosis Major depressive disorder, recurrent and severe Pertinent Medical Hx/Surgical Hx HTN, insomnia, anxiety, depression, benign prostatic enlarge Subjective Information 76 year old male. Pt was agitated and ofcused on pain meds during visit, unable to obtain much meaningful information. Attempted to confirm food allergy to olmedo peppers and discuss with pt inadequate PO intake and importace of nutrition, unsucessful. Pt denied nutritional concerns at this time. Pt soon stood up and walked away. Limited physical assessment, no severe muscle fat wasting noted. Avg PO intake 59% of past 11 meals since adm, meeting 68% lower end kcal and 78% lower end prot needs. Current Diet Order/ Nutrition Support [facility] soft ground Pertinent Medications Vitamin C, [place] 3, Imodium, MOM, Theragran, vitamin B Complex W/C Pertinent Labs No current labs. Nutritional Hx/Data Height 1.83 m Height (Calculated Centimeters) 182.9 Current Weight (lbs) 79.832 kg Weight (Calculated Kilograms) 79.8 Weight (Calculated Grams) 20546.3 [place] Body Weight 178 Weight Status Approriate GI Symptoms Food Allergies Yes Skin Integrity/Comment: Natalio 20. Skin intact. Current %PO Fair (50-74%) Estimated Nutritional Goals BEE in Kcals: Using Current wt Calories/Kcals/Kg CBW 176lb/80kg Kcals Calculated 2000-2400kcal (25-30kcal/kg) Protein: Using Current wt Protein Calculated 80g (1g/kg) Fluid: ml 2000-2400ml (1ml/kcal) Nutritional Problem 1. Problem Problem Inadequate oral food beverage intake related to Etiology possibly cognition aeb Signs/Symptoms: meeting 68% lower end kcal and 78% lower end prot needs Intervention/Recommendation Comments 1. Recommend health shake TID. Avg PO intake is inadequate, meeting 68% lower end kcal and 78% lower end prot needs. Expected Outcomes/Goals Expected Outcomes/Goals 1. PO intake to meet at least 75% of estimated nutritional needs.
[2016-12-13] MEDS: Fish Oil 1,000 MG SGL PO SCH (08:16)
[2016-12-13] MEDS: Multivitamin Tab PO SCH (08:17)
[2016-12-13] MEDS: Ascorbic Acid/Vit B Complex Tab PO SCH (08:17)
--- NOTE | 2016-12-13 23:30 | Progress Notes ---
DATE: 12/13/2016 PSYCHIATRIC PROGRESS NOTE TIME PATIENT SEEN: 9:00 a.m. SUBJECTIVE: Staff was spoken to. The patient is interviewed. Mood is noted to be irritable. Affect is constricted. The patient's coping skills are noted to be poor. The patient has been not even getting out of the bed, not even willing to take a shower. The patient's personal hygiene looked extremely poor. The patient has ____. The patient is stating that he does not feel good at all. The patient has been on Abilify 2 mg and citalopram 20 mg. The patient has been focused only on Ativan and the patient has been having difficult time to cope with the stress. The patient has been encouraged to comply with the treatment. No side effects to the medications are noted. The patient has been not able to contract for safety and hence the patient needs to be closely monitored and provided. The patient has been mentioned about placement, but the patient is stating that he has a supportive family, he wants to be there with the family, he does not want to be placed in anywhere else. ASSESSMENT: The patient is still depressed. PLAN: To continue the patient with the current medications. I encouraged the patient to verbalize the concerns rather than to act out. Please note that the patient is not ready to be transferred to a lower level of care yet. JOB# [id number]
--- NOTE | 2016-12-14 08:13 | General Progress Note ---
Subjective - Review of Systems Service Date: 12/14/16 Subjective: awake alert afebrile. Objective - Physical Exam Vitals and I&O: Vital Signs Temp 99.1 F 12/14/16 06:32 Pulse 91 12/14/16 06:32 Resp 20 12/14/16 06:32 BP 128/73 12/14/16 06:32 Pulse Ox 95 12/14/16 06:32 Intake & Output 12/13/16 12/14/16 12/14/16 18:59 06:59 18:59 Intake Total 1000 Balance 1000 Intake: Oral 1000 Other: # Voids 3 3 # Bowel Movements 0 0 Active Medications: Current Medications Acetaminophen (Tylenol) 650 mg PO Q4HR PRN PRN Reason: Mild Pain / Temp above 100 Stop: 02/02/17 17:50 Last Admin: 12/13/16 03:45 Dose: 650 mg Al Hydrox/Mg Hydrox/Simethicone (Maalox) 30 ml PO Q4HR PRN PRN Reason: GI DISTRESS Stop: 02/02/17 17:50 Last Admin: 12/06/16 05:25 Dose: 30 ml Aripiprazole (Abilify) 2 mg PO HS YASSINE PRN Reason: Protocol Stop: 02/02/17 20:59 Last Admin: 12/13/16 21:25 Dose: 2 mg Ascorbic Acid (Vitamin C) 500 mg PO DAILY YASSINE Stop: 02/03/17 08:59 Last Admin: 12/13/16 08:17 Dose: Not Given Atenolol (Tenormin) 25 mg PO DAILY YASSINE Stop: 02/04/17 08:59 Last Admin: 12/13/16 08:13 Dose: 25 mg Escitalopram Oxalate (Lexapro) 20 mg PO DAILY YASSINE PRN Reason: Protocol Stop: 02/03/17 08:59 Last Admin: 12/13/16 08:17 Dose: Not Given Fish Oil ([place] 3) 1,000 mg PO DAILY YASSINE Stop: 02/03/17 08:59 Last Admin: 12/13/16 08:16 Dose: 1,000 mg Hydroxyzine Pamoate (Vistaril) 25 mg PO Q6HR PRN; Protocol PRN Reason: Anxiety Stop: 02/11/17 10:34 Last Admin: 12/13/16 18:03 Dose: 25 mg Ibuprofen (Advil) 600 mg PO Q8HR PRN PRN Reason: Pain (Mild) Stop: 02/02/17 18:23 Last Admin: 12/13/16 18:03 Dose: 600 mg Lisinopril (Zestril) 20 mg PO DAILY [facility] Stop: 02/03/17 08:59 Last Admin: 12/13/16 08:14 Dose: Not Given Loperamide HCl (Imodium) 2 mg PO Q8HR PRN PRN Reason: Diarrhea Stop: 02/02/17 18:22 Loratadine (Claritin) 10 mg PO DAILY YASSINE Stop: 02/03/17 08:59 Last Admin: 12/13/16 08:17 Dose: 10 mg Lorazepam (Ativan) 0.5 mg PO BID PRN; Protocol PRN Reason: Agitation Stop: 02/02/17 18:28 Last Admin: 12/14/16 02:47 Dose: 0.5 mg Multivitamins/Vitamin C (Theragran) 1 tab PO DAILY YASSINE Stop: 02/03/17 08:59 Last Admin: 12/13/16 08:17 Dose: Not Given Tamsulosin HCl (Flomax) 0.4 mg PO DAILY YASSINE Stop: 02/03/17 08:59 Last Admin: 12/13/16 08:17 Dose: 0.4 mg Vitamin B Complex/Vitamin C (Vitamin B Complex W/C) 1 tab PO DAILY YASSINE Stop: 02/03/17 08:59 Last Admin: 12/13/16 08:17 Dose: Not Given Zolpidem Tartrate (Ambien) 5 mg PO HS PRN PRN Reason: Insomnia Stop: 02/02/17 17:50 Last Admin: 12/13/16 00:11 Dose: 5 mg General: Alert, Oriented x3, No acute distress HEENT: Atraumatic, PERRLA, EOMI Neck: Supple Cardiovascular: Regular rate, Normal S1, Normal S2 Lungs: Clear to auscultation Abdomen: Bowel sounds Extremities: no Clubbing, no Cyanosis, no Edema - Procedures Procedures: Procedures Procedure Code Date OTHER GROUP THERAPY 94.44 12/31/12 Assessment/Plan - Problem List Patient Problems: All Active Problems Anxiety (Acute) F41.9 BPH (benign prostatic hyperplasia) (Acute) N40.0 Constipation (Acute) K59.00 Depression (Acute) F32.9 Hyperlipidemia (Acute) E78.5 Hypertension (Acute) I10 Insomnia (Acute) G47.00 Psychosis (Acute) F29 Suicidal ideations (Acute) - Assessment Assessment: depression per psychiatry ... continue current treatment suicidal ideation ... continue current treatment hypertension improved ... continue meds and monitor BP. hyperlipidemia ... awaiting labwork bph ... continue Flomax insomnia ... on Ambien will add vistaril PRN. anxiety disorder ... per Psychiatry constipation ... will order stool softeners, KUB negative - Plan Plan: continue current treatment. Nutritional Asmnt/Malnutr-PDOC - Dietary Evaluation Malnutrition Findings (Please click <Entered> for more info): Nutritional Asmnt/Malnutrition Start: 12/09/16 14: 18 Text: Status: Complete Freq: Document 12/09/16 14:18 GSUN (Rec: 12/09/16 14:26 GSUN [email or web address]) Nutritional Asmnt/Malnutrition Patient General Information Nutritional Screening Moderate Risk Screening Diagnosis Major depressive disorder, recurrent and severe Pertinent Medical Hx/Surgical Hx HTN, insomnia, anxiety, depression, benign prostatic enlarge Subjective Information 76 year old male. Pt was agitated and ofcused on pain meds during visit, unable to obtain much meaningful information. Attempted to confirm food allergy to olmedo peppers and discuss with pt inadequate PO intake and importace of nutrition, unsucessful. Pt denied nutritional concerns at this time. Pt soon stood up and walked away. Limited physical assessment, no severe muscle fat wasting noted. Avg PO intake 59% of past 11 meals since adm, meeting 68% lower end kcal and 78% lower end prot needs. Current Diet Order/ Nutrition Support [facility] soft ground Pertinent Medications Vitamin C, [place] 3, Imodium, MOM, Theragran, vitamin B Complex W/C Pertinent Labs No current labs. Nutritional Hx/Data Height 1.83 m Height (Calculated Centimeters) 182.9 Current Weight (lbs) 79.832 kg Weight (Calculated Kilograms) 79.8 Weight (Calculated Grams) 42718.3 [place] Body Weight 178 Weight Status Approriate GI Symptoms Food Allergies Yes Skin Integrity/Comment: Natalio 20. Skin intact. Current %PO Fair (50-74%) Estimated Nutritional Goals BEE in Kcals: Using Current wt Calories/Kcals/Kg CBW 176lb/80kg Kcals Calculated 1999-2400kcal (25-30kcal/kg) Protein: Using Current wt Protein Calculated 80g (1g/kg) Fluid: ml 2000-2400ml (1ml/kcal) Nutritional Problem 1. Problem Problem Inadequate oral food beverage intake related to Etiology possibly cognition aeb Signs/Symptoms: meeting 68% lower end kcal and 78% lower end prot needs Intervention/Recommendation Comments 1. Recommend health shake TID. Avg PO intake is inadequate, meeting 68% lower end kcal and 78% lower end prot needs. Expected Outcomes/Goals Expected Outcomes/Goals 1. PO intake to meet at least 75% of estimated nutritional needs.
[2016-12-14] MEDS: Multivitamin Tab PO SCH (09:38)
[2016-12-14] MEDS: Fish Oil 1,000 MG SGL PO SCH (09:38)
[2016-12-14] MEDS: Ascorbic Acid/Vit B Complex Tab PO SCH (09:38)
--- NOTE | 2016-12-15 01:33 | Progress Notes ---
DATE: 12/14/2016 SUBJECTIVE: Staff was spoken to. The patient is interviewed. Mood is noted to be irritable. Affect is constricted. The patient's insight and judgment are noted to be still impaired. The patient is stating that he is not depressed. He should not be on the medications. He should be only on the Ativan. The patient's daughter has been spoken to in detail and has been explained about the patient's situation and his refusal to take even a shower. The patient has been isolative and withdrawn today. No side effects to the medications are noted. The patient is not able to care for self. ASSESSMENT: The patient is still depressed. PLAN: I encouraged the patient to comply with the treatment and participate in the groups. The patient's family has been advised to look for possible placement in a snf facility and the patient at this time is very reluctant to do so. Plan to closely monitor and encouraged the patient to follow through with these recommendations. [facility]# [id number]
[2016-12-15] MEDS: Ascorbic Acid/Vit B Complex Tab PO SCH (08:33)
[2016-12-15] MEDS: Multivitamin Tab PO SCH (08:33)
[2016-12-15] MEDS: Fish Oil 1,000 MG SGL PO SCH (08:33)
--- NOTE | 2016-12-15 08:37 | General Progress Note ---
Subjective - Review of Systems Service Date: 12/15/16 Subjective: awake alert afebrile. Objective - Physical Exam Vitals and I&O: Vital Signs Temp 97.9 F 12/15/16 06:26 Pulse 88 12/15/16 08:29 Resp 19 12/15/16 06:26 BP 126/74 12/15/16 08:29 Pulse Ox 96 12/15/16 06:26 Intake & Output 12/14/16 12/15/16 12/15/16 18:59 06:59 18:59 Intake Total 1600 240 Balance 1600 240 Intake: Oral 1600 240 Other: # Voids 3 4 # Bowel Movements 0 0 Active Medications: Current Medications Acetaminophen (Tylenol) 650 mg PO Q4HR PRN PRN Reason: Mild Pain / Temp above 100 Stop: 02/02/17 17:50 Last Admin: 12/13/16 03:45 Dose: 650 mg Al Hydrox/Mg Hydrox/Simethicone (Maalox) 30 ml PO Q4HR PRN PRN Reason: GI DISTRESS Stop: 02/02/17 17:50 Last Admin: 12/06/16 05:25 Dose: 30 ml Aripiprazole (Abilify) 2 mg PO HS YASSINE PRN Reason: Protocol Stop: 02/02/17 20:59 Last Admin: 12/14/16 21:36 Dose: Not Given Ascorbic Acid (Vitamin C) 500 mg PO DAILY YASSINE Stop: 02/03/17 08:59 Last Admin: 12/15/16 08:33 Dose: Not Given Atenolol (Tenormin) 25 mg PO DAILY YASSINE Stop: 02/04/17 08:59 Last Admin: 12/15/16 08:28 Dose: 25 mg Escitalopram Oxalate (Lexapro) 20 mg PO DAILY YASSINE PRN Reason: Protocol Stop: 02/03/17 08:59 Last Admin: 12/15/16 08:29 Dose: Not Given Fish Oil ([place]ol[place] 3) 1,000 mg PO DAILY YASSINE Stop: 02/03/17 08:59 Last Admin: 12/15/16 08:33 Dose: Not Given Hydroxyzine Pamoate (Vistaril) 25 mg PO Q6HR PRN; Protocol PRN Reason: Anxiety Stop: 02/11/17 10:34 Last Admin: 12/15/16 05:33 Dose: 25 mg Ibuprofen (Advil) 600 mg PO Q8HR PRN PRN Reason: Pain (Mild) Stop: 02/02/17 18:23 Last Admin: 12/13/16 18:03 Dose: 600 mg Lisinopril (Zestril) 20 mg PO DAILY YASSINE Stop: 02/03/17 08:59 Last Admin: 12/15/16 08:29 Dose: 20 mg Loperamide HCl (Imodium) 2 mg PO Q8HR PRN PRN Reason: Diarrhea Stop: 02/02/17 18:22 Loratadine (Claritin) 10 mg PO DAILY YASSINE Stop: 02/03/17 08:59 Last Admin: 12/15/16 08:27 Dose: 10 mg Lorazepam (Ativan) 0.5 mg PO BID PRN; Protocol PRN Reason: Agitation Stop: 02/02/17 18:28 Last Admin: 12/15/16 08:28 Dose: 0.5 mg Multivitamins/Vitamin C (Theragran) 1 tab PO DAILY YASSINE Stop: 02/03/17 08:59 Last Admin: 12/15/16 08:33 Dose: Not Given Tamsulosin HCl (Flomax) 0.4 mg PO DAILY YASSINE Stop: 02/03/17 08:59 Last Admin: 12/15/16 08:28 Dose: 0.4 mg Vitamin B Complex/Vitamin C (Vitamin B Complex W/C) 1 tab PO DAILY YASSINE Stop: 02/03/17 08:59 Last Admin: 12/15/16 08:33 Dose: Not Given Zolpidem Tartrate (Ambien) 5 mg PO HS PRN PRN Reason: Insomnia Stop: 02/02/17 17:50 Last Admin: 12/15/16 00:48 Dose: 5 mg General: Alert, Oriented x3, No acute distress HEENT: Atraumatic, PERRLA, EOMI Neck: Supple Cardiovascular: Regular rate, Normal S1, Normal S2 Lungs: Clear to auscultation Abdomen: Bowel sounds Extremities: no Clubbing, no Cyanosis, no Edema - Procedures Procedures: Procedures Procedure Code Date OTHER GROUP THERAPY 94.44 12/31/12 Assessment/Plan - Problem List Patient Problems: All Active Problems Anxiety (Acute) F41.9 BPH (benign prostatic hyperplasia) (Acute) N40.0 Constipation (Acute) K59.00 Depression (Acute) F32.9 Hyperlipidemia (Acute) E78.5 Hypertension (Acute) I10 Insomnia (Acute) G47.00 Psychosis (Acute) F29 Suicidal ideations (Acute) - Assessment Assessment: depression per psychiatry ... continue current treatment suicidal ideation ... continue current treatment hypertension improved ... continue meds and monitor BP. hyperlipidemia ... awaiting labwork bph ... continue Flomax insomnia ... on Ambien will add vistaril PRN. anxiety disorder ... per Psychiatry constipation ... will order stool softeners, KUB negative - Plan Plan: continue current treatment. Nutritional Asmnt/Malnutr-PDOC - Dietary Evaluation Malnutrition Findings (Please click <Entered> for more info): Nutritional Asmnt/Malnutrition Start: 12/09/16 14: 18 Text: Status: Complete Freq: Document 12/09/16 14:18 GSUN (Rec: 12/09/16 14:26 GSUN [email or web address]) Nutritional Asmnt/Malnutrition Patient General Information Nutritional Screening Moderate Risk Screening Diagnosis Major depressive disorder, recurrent and severe Pertinent Medical Hx/Surgical Hx HTN, insomnia, anxiety, depression, benign prostatic enlarge Subjective Information 76 year old male. Pt was agitated and ofcused on pain meds during visit, unable to obtain much meaningful information. Attempted to confirm food allergy to olmedo peppers and discuss with pt inadequate PO intake and importace of nutrition, unsucessful. Pt denied nutritional concerns at this time. Pt soon stood up and walked away. Limited physical assessment, no severe muscle fat wasting noted. Avg PO intake 59% of past 11 meals since adm, meeting 68% lower end kcal and 78% lower end prot needs. Current Diet Order/ Nutrition Support [facility] soft ground Pertinent Medications Vitamin C, [place] 3, Imodium, MOM, Theragran, vitamin B Complex W/C Pertinent Labs No current labs. Nutritional Hx/Data Height 1.83 m Height (Calculated Centimeters) 182.9 Current Weight (lbs) 79.832 kg Weight (Calculated Kilograms) 79.8 Weight (Calculated Grams) 95441.3 [place] Body Weight 178 Weight Status Approriate GI Symptoms Food Allergies Yes Skin Integrity/Comment: Natalio 20. Skin intact. Current %PO Fair (50-74%) Estimated Nutritional Goals BEE in Kcals: Using Current wt Calories/Kcals/Kg CBW 176lb/80kg Kcals Calculated 1999-2400kcal (25-30kcal/kg) Protein: Using Current wt Protein Calculated 80g (1g/kg) Fluid: ml 2000-2400ml (1ml/kcal) Nutritional Problem 1. Problem Problem Inadequate oral food beverage intake related to Etiology possibly cognition aeb Signs/Symptoms: meeting 68% lower end kcal and 78% lower end prot needs Intervention/Recommendation Comments 1. Recommend health shake TID. Avg PO intake is inadequate, meeting 68% lower end kcal and 78% lower end prot needs. Expected Outcomes/Goals Expected Outcomes/Goals 1. PO intake to meet at least 75% of estimated nutritional needs.
--- NOTE | 2016-12-15 21:53 | Progress Notes ---
DATE: 12/15/2016 SUBJECTIVE: Staff was spoken to. The patient is interviewed. Mood is noted to be depressed. Affect is constricted. The patient is very anxious and he stating that he is in need of more and more of the Ativan. The patient has been placed on the Vistaril because the patient has been asking for Ativan constantly. Ativan has been decreased to 0.5 mg twice a day and Vistaril has been given 25 mg q.6 h. p.r.n. The patient's family has been spoken to. The patient is not able to care for self and hence a recommendation has been made that patient can be discharged to a detention place because he is not able to care for self. JOB# [id number]
[2016-12-16] MEDS: Multivitamin Tab PO SCH (08:09)
[2016-12-16] MEDS: Fish Oil 1,000 MG SGL PO SCH (08:09)
--- NOTE | 2016-12-16 08:48 | General Progress Note ---
Subjective - Review of Systems Service Date: 12/16/16 Subjective: awake alert afebrile. Objective - Physical Exam Vitals and I&O: Vital Signs Temp 98.0 F 12/16/16 06:09 Pulse 88 12/16/16 08:09 Resp 20 12/16/16 06:09 BP 148/93 12/16/16 08:09 Pulse Ox 96 12/16/16 06:09 Intake & Output 12/15/16 12/16/16 12/16/16 18:59 06:59 18:59 Intake Total 800 480 Balance 800 480 Intake: Oral 800 480 Other: # Voids 4 2 # Bowel Movements 1 0 Active Medications: Current Medications Acetaminophen (Tylenol) 650 mg PO Q4HR PRN PRN Reason: Mild Pain / Temp above 100 Stop: 02/02/17 17:50 Last Admin: 12/16/16 08:10 Dose: 650 mg Al Hydrox/Mg Hydrox/Simethicone (Maalox) 30 ml PO Q4HR PRN PRN Reason: GI DISTRESS Stop: 02/02/17 17:50 Last Admin: 12/06/16 05:25 Dose: 30 ml Aripiprazole (Abilify) 2 mg PO HS YASSINE PRN Reason: Protocol Stop: 02/02/17 20:59 Last Admin: 12/15/16 20:54 Dose: 2 mg Ascorbic Acid (Vitamin C) 500 mg PO DAILY YASSINE Stop: 02/03/17 08:59 Last Admin: 12/16/16 08:08 Dose: 500 mg Atenolol (Tenormin) 25 mg PO DAILY YASSINE Stop: 02/04/17 08:59 Last Admin: 12/16/16 08:09 Dose: 25 mg Escitalopram Oxalate (Lexapro) 20 mg PO DAILY YASSINE PRN Reason: Protocol Stop: 02/03/17 08:59 Last Admin: 12/16/16 08:09 Dose: 20 mg Fish Oil (Ashland 3) 1,000 mg PO DAILY YASSINE Stop: 02/03/17 08:59 Last Admin: 12/16/16 08:09 Dose: 1,000 mg Hydroxyzine Pamoate (Vistaril) 25 mg PO Q6HR PRN; Protocol PRN Reason: Anxiety Stop: 02/11/17 10:34 Last Admin: 12/16/16 04:51 Dose: 25 mg Ibuprofen (Advil) 600 mg PO Q8HR PRN PRN Reason: Pain (Mild) Stop: 02/02/17 18:23 Last Admin: 12/16/16 04:51 Dose: 600 mg Lisinopril (Zestril) 20 mg PO DAILY [facility] Stop: 02/03/17 08:59 Last Admin: 12/16/16 08:09 Dose: 20 mg Loperamide HCl (Imodium) 2 mg PO Q8HR PRN PRN Reason: Diarrhea Stop: 02/02/17 18:22 Loratadine (Claritin) 10 mg PO DAILY YASSINE Stop: 02/03/17 08:59 Last Admin: 12/16/16 08:09 Dose: 10 mg Lorazepam (Ativan) 0.5 mg PO BID PRN; Protocol PRN Reason: Agitation Stop: 02/02/17 18:28 Last Admin: 12/16/16 00:22 Dose: 0.5 mg Multivitamins/Vitamin C (Theragran) 1 tab PO DAILY YASSINE Stop: 02/03/17 08:59 Last Admin: 12/16/16 08:09 Dose: 1 tab Tamsulosin HCl (Flomax) 0.4 mg PO DAILY YASSINE Stop: 02/03/17 08:59 Last Admin: 12/16/16 08:08 Dose: 0.4 mg Vitamin B Complex/Vitamin C (Vitamin B Complex W/C) 1 tab PO DAILY [facility] Stop: 02/03/17 08:59 Last Admin: 12/15/16 08:33 Dose: Not Given Zolpidem Tartrate (Ambien) 5 mg PO HS PRN PRN Reason: Insomnia Stop: 02/02/17 17:50 Last Admin: 12/15/16 20:54 Dose: 5 mg General: Alert, Oriented x3, No acute distress HEENT: Atraumatic, PERRLA, EOMI Neck: Supple Cardiovascular: Regular rate, Normal S1, Normal S2 Lungs: Clear to auscultation Abdomen: Bowel sounds Extremities: no Clubbing, no Cyanosis, no Edema - Procedures Procedures: Procedures Procedure Code Date OTHER GROUP THERAPY 94.44 12/31/12 Assessment/Plan - Problem List Patient Problems: All Active Problems Anxiety (Acute) F41.9 BPH (benign prostatic hyperplasia) (Acute) N40.0 Constipation (Acute) K59.00 Depression (Acute) F32.9 Hyperlipidemia (Acute) E78.5 Hypertension (Acute) I10 Insomnia (Acute) G47.00 Psychosis (Acute) F29 Suicidal ideations (Acute) - Assessment Assessment: depression per psychiatry ... continue current treatment suicidal ideation ... continue current treatment BP elevated today ... clonidine PRN, continue Lisinopril. hyperlipidemia ... awaiting labwork bph ... continue Flomax insomnia ... on Ambien will add vistaril PRN. anxiety disorder ... per Psychiatry constipation ... will order stool softeners, KUB negative - Plan Plan: depression per psychiatry ... continue current treatment suicidal ideation ... continue current treatment BP elevated today ... clonidine PRN, continue Lisinopril. hyperlipidemia ... awaiting labwork bph ... continue Flomax insomnia ... on Ambien will add vistaril PRN. anxiety disorder ... per Psychiatry constipation ... will order stool softeners, KUB negative Nutritional Asmnt/Malnutr-PDOC - Dietary Evaluation Malnutrition Findings (Please click <Entered> for more info): Nutritional Asmnt/Malnutrition Start: 12/09/16 14: 18 Text: Status: Complete Freq: Document 12/09/16 14:18 GSUN (Rec: 12/09/16 14:26 GSUN [email or web address]) Nutritional Asmnt/Malnutrition Patient General Information Nutritional Screening Moderate Risk Screening Diagnosis Major depressive disorder, recurrent and severe Pertinent Medical Hx/Surgical Hx HTN, insomnia, anxiety, depression, benign prostatic enlarge Subjective Information 76 year old male. Pt was agitated and ofcused on pain meds during visit, unable to obtain much meaningful information. Attempted to confirm food allergy to olmedo peppers and discuss with pt inadequate PO intake and importace of nutrition, unsucessful. Pt denied nutritional concerns at this time. Pt soon stood up and walked away. Limited physical assessment, no severe muscle fat wasting noted. Avg PO intake 59% of past 11 meals since adm, meeting 68% lower end kcal and 78% lower end prot needs. Current Diet Order/ Nutrition Support [facility] soft ground Pertinent Medications Vitamin C, [place] 3, Imodium, MOM, Theragran, vitamin B Complex W/C Pertinent Labs No current labs. Nutritional Hx/Data Height 1.83 m Height (Calculated Centimeters) 182.9 Current Weight (lbs) 79.832 kg Weight (Calculated Kilograms) 79.8 Weight (Calculated Grams) 72137.3 [place] Body Weight 178 Weight Status Approriate GI Symptoms Food Allergies Yes Skin Integrity/Comment: Natalio 20. Skin intact. Current %PO Fair (50-74%) Estimated Nutritional Goals BEE in Kcals: Using Current wt Calories/Kcals/Kg CBW 176lb/80kg Kcals Calculated 2000-2400kcal (25-30kcal/kg) Protein: Using Current wt Protein Calculated 80g (1g/kg) Fluid: ml 2000-2400ml (1ml/kcal) Nutritional Problem 1. Problem Problem Inadequate oral food beverage intake related to Etiology possibly cognition aeb Signs/Symptoms: meeting 68% lower end kcal and 78% lower end prot needs Intervention/Recommendation Comments 1. Recommend health shake TID. Avg PO intake is inadequate, meeting 68% lower end kcal and 78% lower end prot needs. Expected Outcomes/Goals Expected Outcomes/Goals 1. PO intake to meet at least 75% of estimated nutritional needs.
[2016-12-16] MEDS: Ascorbic Acid/Vit B Complex Tab PO SCH (11:52)
--- NOTE | 2016-12-17 03:16 | Progress Notes ---
DATE: 12/16/2016 SUBJECTIVE: Staff was spoken to. The patient is interviewed. Mood is very depressed. Affect is constricted. The patient is still presenting with some somatic complaints. The patient is stating that his depression is so bad and anxiety is so bad that he cannot get out of the bed. The patient has no insight into his illness. The patient for a long time has been compliant with the medication and has taken the Lexapro this morning. ASSESSMENT: The patient is still very depressed. PLAN: To increase the dose on the Abilify to 5 mg and continue the Lexapro. I encouraged the patient to verbalize the concerns rather than to act out. JOB# [id number]
--- NOTE | 2016-12-17 08:45 | General Progress Note ---
Subjective - Review of Systems Service Date: 12/17/16 Subjective: awake alert afebrile. Objective - Physical Exam Vitals and I&O: Vital Signs Temp 98.6 F 12/17/16 07:30 Pulse 100 12/17/16 07:30 Resp 19 12/17/16 07:30 BP 149/85 12/17/16 07:30 Pulse Ox 97 12/17/16 07:30 Intake & Output 12/16/16 12/17/16 12/17/16 18:59 06:59 18:59 Intake Total 950 240 Balance 950 240 Intake: Oral 950 240 Other: # Voids 4 3 # Bowel Movements 1 0 Active Medications: Current Medications Acetaminophen (Tylenol) 650 mg PO Q4HR PRN PRN Reason: Mild Pain / Temp above 100 Stop: 02/02/17 17:50 Last Admin: 12/17/16 02:09 Dose: 650 mg Al Hydrox/Mg Hydrox/Simethicone (Maalox) 30 ml PO Q4HR PRN PRN Reason: GI DISTRESS Stop: 02/02/17 17:50 Last Admin: 12/06/16 05:25 Dose: 30 ml Aripiprazole (Abilify) 5 mg PO HS YASSINE PRN Reason: Protocol Stop: 02/02/17 20:59 Last Admin: 12/16/16 21:06 Dose: 5 mg Ascorbic Acid (Vitamin C) 500 mg PO DAILY YASSINE Stop: 02/03/17 08:59 Last Admin: 12/16/16 08:08 Dose: 500 mg Escitalopram Oxalate (Lexapro) 20 mg PO DAILY YASSINE PRN Reason: Protocol Stop: 02/03/17 08:59 Last Admin: 12/16/16 08:09 Dose: 20 mg Fish Oil (Romeo 3) 1,000 mg PO DAILY YASSINE Stop: 02/03/17 08:59 Last Admin: 12/16/16 08:09 Dose: 1,000 mg Hydroxyzine Pamoate (Vistaril) 25 mg PO Q6HR PRN; Protocol PRN Reason: Anxiety Stop: 02/11/17 10:34 Last Admin: 12/16/16 04:51 Dose: 25 mg Ibuprofen (Advil) 600 mg PO Q8HR PRN PRN Reason: Pain (Mild) Stop: 02/02/17 18:23 Last Admin: 12/16/16 04:51 Dose: 600 mg Lisinopril (Zestril) 20 mg PO DAILY YASSINE Stop: 02/03/17 08:59 Last Admin: 12/16/16 08:09 Dose: 20 mg Loperamide HCl (Imodium) 2 mg PO Q8HR PRN PRN Reason: Diarrhea Stop: 02/02/17 18:22 Loratadine (Claritin) 10 mg PO DAILY YASSINE Stop: 02/03/17 08:59 Last Admin: 12/16/16 08:09 Dose: 10 mg Lorazepam (Ativan) 0.5 mg PO BID PRN; Protocol PRN Reason: Agitation Stop: 02/02/17 18:28 Last Admin: 12/17/16 07:30 Dose: 0.5 mg Multivitamins/Vitamin C (Theragran) 1 tab PO DAILY YASSINE Stop: 02/03/17 08:59 Last Admin: 12/16/16 08:09 Dose: 1 tab Tamsulosin HCl (Flomax) 0.4 mg PO DAILY YASSINE Stop: 02/03/17 08:59 Last Admin: 12/16/16 08:08 Dose: 0.4 mg Vitamin B Complex/Vitamin C (Vitamin B Complex W/C) 1 tab PO DAILY YASSINE Stop: 02/03/17 08:59 Last Admin: 12/16/16 11:52 Dose: Not Given Zolpidem Tartrate (Ambien) 5 mg PO HS PRN PRN Reason: Insomnia Stop: 02/02/17 17:50 Last Admin: 12/16/16 21:07 Dose: 5 mg General: Alert, Oriented x3, No acute distress HEENT: Atraumatic, PERRLA, EOMI Neck: Supple Cardiovascular: Regular rate, Normal S1, Normal S2 Lungs: Clear to auscultation Abdomen: Bowel sounds Extremities: no Clubbing, no Cyanosis, no Edema - Procedures Procedures: Procedures Procedure Code Date OTHER GROUP THERAPY 94.44 12/31/12 Assessment/Plan - Problem List Patient Problems: All Active Problems Anxiety (Acute) F41.9 BPH (benign prostatic hyperplasia) (Acute) N40.0 Constipation (Acute) K59.00 Depression (Acute) F32.9 Hyperlipidemia (Acute) E78.5 Hypertension (Acute) I10 Insomnia (Acute) G47.00 Psychosis (Acute) F29 Suicidal ideations (Acute) - Assessment Assessment: depression per psychiatry ... continue current treatment suicidal ideation ... continue current treatment BP elevated today ... clonidine PRN, continue Lisinopril. hyperlipidemia ... awaiting labwork bph ... continue Flomax insomnia ... on Ambien will add vistaril PRN. anxiety disorder ... per Psychiatry constipation ... will order stool softeners, KUB negative - Plan Plan: depression per psychiatry ... continue current treatment suicidal ideation ... continue current treatment BP elevated today ... clonidine PRN, continue Lisinopril. hyperlipidemia ... awaiting labwork bph ... continue Flomax insomnia ... on Ambien will add vistaril PRN. anxiety disorder ... per Psychiatry constipation ... will order stool softeners, KUB negative Nutritional Asmnt/Malnutr-PDOC - Dietary Evaluation Malnutrition Findings (Please click <Entered> for more info): Nutritional Asmnt/Malnutrition Start: 12/09/16 14: 18 Text: Status: Complete Freq: Document 12/09/16 14:18 GSUN (Rec: 12/09/16 14:26 GSUN [email or web address]) Nutritional Asmnt/Malnutrition Patient General Information Nutritional Screening Moderate Risk Screening Diagnosis Major depressive disorder, recurrent and severe Pertinent Medical Hx/Surgical Hx HTN, insomnia, anxiety, depression, benign prostatic enlarge Subjective Information 76 year old male. Pt was agitated and ofcused on pain meds during visit, unable to obtain much meaningful information. Attempted to confirm food allergy to olmedo peppers and discuss with pt inadequate PO intake and importace of nutrition, unsucessful. Pt denied nutritional concerns at this time. Pt soon stood up and walked away. Limited physical assessment, no severe muscle fat wasting noted. Avg PO intake 59% of past 11 meals since adm, meeting 68% lower end kcal and 78% lower end prot needs. Current Diet Order/ Nutrition Support [facility] [place] soft ground Pertinent Medications Vitamin C, Romeo 3, Imodium, MOM, Theragran, vitamin B Complex W/C Pertinent Labs No current labs. Nutritional Hx/Data Height 1.83 m Height (Calculated Centimeters) 182.9 Current Weight (lbs) 79.832 kg Weight (Calculated Kilograms) 79.8 Weight (Calculated Grams) 44885.3 [place] Body Weight 178 Weight Status Approriate GI Symptoms Food Allergies Yes Skin Integrity/Comment: Natalio 20. Skin intact. Current %PO Fair (50-74%) Estimated Nutritional Goals BEE in Kcals: Using Current wt Calories/Kcals/Kg CBW 176lb/80kg Kcals Calculated 1999-2400kcal (25-30kcal/kg) Protein: Using Current wt Protein Calculated 80g (1g/kg) Fluid: ml 1999-2400ml (1ml/kcal) Nutritional Problem 1. Problem Problem Inadequate oral food beverage intake related to Etiology possibly cognition aeb Signs/Symptoms: meeting 68% lower end kcal and 78% lower end prot needs Intervention/Recommendation Comments 1. Recommend health shake TID. Avg PO intake is inadequate, meeting 68% lower end kcal and 78% lower end prot needs. Expected Outcomes/Goals Expected Outcomes/Goals 1. PO intake to meet at least 75% of estimated nutritional needs.
[2016-12-17] MEDS: Fish Oil 1,000 MG SGL PO SCH (09:12)
[2016-12-17] MEDS: Ascorbic Acid/Vit B Complex Tab PO SCH (09:15)
[2016-12-17] MEDS: Multivitamin Tab PO SCH (09:24)
--- NOTE | 2016-12-18 02:23 | Progress Notes ---
DATE: 12/17/2016 SUBJECTIVE: Staff was spoken to. The patient is interviewed. Mood is noted to be irritable. Affect is constricted. Insight and judgment are noted to be still impaired. Impulse control is noted to be limited. Coping skills are noted to be limited. The patient has been having difficult time to cope with the stress. The patient is refusing to take a shower. Personal hygiene is extremely poor. The patient, however, has been asking that he needs to be on more and more of Ativan. The patient is refusing to take the blood pressure medication because even if the blood pressure is going to go down we are going to be holding off the Ativan and hence he does not want to take the blood pressure medication. ASSESSMENT AND PLAN: The patient is still depressed and patient is not able to care for self. The patient is strongly encouraged to look for a residential facility, but the patient has been back pedaling on that one. convention manager has been informed to look for placement at this time. JOB# [id number]
== END 2016-12-17 17:50 | DRG 885 ==
LOC: GERO 17:09
PROVIDERS: ADMIT Psychiatry & Neurology Psychiatry; ATTEND Psychiatry & Neurology Psychiatry
DX: F33.2 Major depressive disorder, recurrent severe without psychotic features (principal); R45.851 Suicidal ideations; I10 Essential (primary) hypertension; T50.901A Poisoning by unspecified drugs, medicaments and biological substances, accidental (unintentional), initial encounter; K59.00 Constipation, unspecified; E78.5 Hyperlipidemia, unspecified; N40.0 Benign prostatic hyperplasia without lower urinary tract symptoms; G47.00 Insomnia, unspecified; F41.9 Anxiety disorder, unspecified; Z88.0 Allergy status to penicillin
CPT/HCPCS: 74000-TC; Q0177; Z7610

== ENCOUNTER 2017-01-12 21:57 | Emergency (ER) | payer MEDICARE | END 2017-01-12 22:20 | disposition short-term general hospital (02) | LOC: ER 21:57 | DX: R45.851 Suicidal ideations (principal) ==

== ENCOUNTER 2019-07-15 17:19 | Inpatient (IN) | payer MEDICARE ==
[2019-07-15 21:53] VITALS: BP 136/91
[2019-07-15] MEDS ORDERED: Acetaminophen 500 MG TAB PO PRN (22:24)
[2019-07-15] MEDS ORDERED: Magnesium Hydroxide (MOM) 30 mL UDC PO PRN (22:24)
[2019-07-16] MEDS: Hydrocodone/APAP 10 mg/325 mg Tab PO PRN ×2 (01:14→16:31)
[2019-07-16] MEDS: Pantoprazole 40 mg EC Tab PO SCH (08:34)
--- NOTE | 2019-07-16 12:51 | Psychiatric Evaluation ---
DATE OF SERVICE: 07/16/2019 PSYCHIATRIC EVALUATION AND EXAMINATION IDENTIFYING DATA: The patient is a 78-year-old male, resident of [facility]. Information obtained by directly interviewing the patient as well as reviewing the admission papers and they are reliable. JUSTIFICATION FOR HOSPITALIZATION: The patient is admitted on a voluntary basis because of his acute depression and suicidal ideations and plans. CHIEF COMPLAINT: "I can't deal with it any longer. I want to end my life." HISTORY OF PRESENT ILLNESS: This is the one of multiple psychiatric hospitalizations for this patient who is known to me from outpatient treatment. The patient has been diagnosed to have bipolar disorder and lately has been experiencing extreme depression. The patient is reported to have sustained a fall and following which there is a fracture of the proximal humerus on the left side and from thereon the patient has been having difficult time. The patient has been in the [facility] for the past 2 months. The patient also has a history of a schwannoma and that was partially removed in 2017. The patient is reporting that he has been not able to sleep, feeling frustrated and wants to end his life. Appetite is also noted to be very poor. The patient is stating that he has been getting extremely anxious and need more and more of the Ativan. The patient is also on pain medications and the patient at this time is not able to contract for safety and hence a higher level of care is requested. PAST PSYCHIATRIC HISTORY: The patient had been hospitalized on multiple occasions. MEDICAL HISTORY: Physical examination is requested by Dr. Wheatley. SUBSTANCE ABUSE HISTORY: None. PHYSICAL OR SEXUAL ABUSE HISTORY: None. LEGAL PROBLEMS: None at this time. STRENGTH AND ASSETS: The patient is motivated. MENTAL STATUS EXAMINATION: The patient is a 78-year-old thin built, superficially cooperative. Eye contact is poor. Mood is noted to be depressed. Affect is constricted. The patient is suicidal at this time. No homicidal ideation is noted. Insight and judgment are noted to be still impaired. Impulse control is noted to be poor. Coping skills are noted to be very poor. The patient has been having difficult time to cope with the stress. The patient denies any command hallucinations, but the patient is very, very irritable, angry at this time. The patient is alert and aware that he is in the hospital. Attention span and concentration are noted to be fair. The patient is motivated to seek treatment, but the patient has a tendency to seek more and more or higher dose of the lorazepam at this time. The patient has been fully made aware of the combination of the pain medications on the lorazepam. DIAGNOSES: AXIS I: Bipolar disorder, depressed. AXIS II: None. AXIS III: As per Dr. Wheatley. IMMEDIATE TREATMENT PLAN: The patient is going to be observed on inpatient unit, provided with supportive psychotherapy. The patient is going to be closely monitored and I encouraged to participate in the groups and verbalize the concerns. Once stabilized, the patient is going to be discharged back to the [facility] for further care. JOB# [id number]
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
[2019-07-17] MEDS: Pantoprazole 40 mg EC Tab PO SCH (08:46)
[2019-07-17] MEDS: Maalox 30 mL Cup PO PRN (12:00)
--- NOTE | 2019-07-17 12:21 | Progress Notes ---
DATE: 07/17/2019 SUBJECTIVE: Staff was spoken to. The patient is interviewed. Mood is noted to be depressed. Affect is constricted. The patient is isolative and withdrawn. Insight and judgment at this time are noted to be still impaired. Impulse control is noted to be limited. Coping skills are noted to be limited. The patient has been having difficult time to get out of the bed. ASSESSMENT: The patient is severely depressed and suicidal. PLAN: To continue the patient with the current medications and follow. JOB# [id number]
--- NOTE | 2019-07-17 13:42 | Internal Medicine Prog Note ---
Internal Medicine Subjective - Subjective Service Date: 07/17/19 Patient seen and examined:: without staff Patient is:: awake Internal Medicine Objective - Results Recent Labs: Laboratory Last Values POC Glucose 115 MG/DL (70 - 105) H 07/15/19 19:59 - Physical Exam Vitals and I&O: Vital Signs Temp 98.3 F 07/17/19 06:02 Pulse 71 07/17/19 09:01 Resp 19 07/17/19 06:02 BP 111/50 07/17/19 09:01 Pulse Ox 95 07/17/19 06:02 Intake & Output 07/16/19 07/17/19 07/17/19 18:59 06:59 18:59 Intake Total 900 300 Balance 900 300 Intake: Oral 900 300 Other: # Voids 4 1 # Bowel Movements 1 0 Active Medications: Current Medications Acetaminophen (Tylenol) 650 mg PO Q4H PRN PRN Reason: Pain (Mild 1-3) Stop: 09/13/19 22:23 Acetaminophen (Tylenol) 650 mg PO Q4H PRN PRN Reason: Fever Stop: 09/13/19 22:23 Hydrocodone Bitart/Acetaminophen (Nallen 10 Mg/325 Mg) 1 tab PO Q4H PRN PRN Reason: Moderate to Severe Pain Stop: 09/13/19 23:17 Last Admin: 07/16/19 16:31 Dose: 1 tab Al Hydrox/Mg Hydrox/Simethicone (Maalox) 30 ml PO Q4HR PRN PRN Reason: GI DISTRESS Stop: 09/13/19 22:23 Diphenhydramine HCl (Benadryl) 50 mg PO Q6HR PRN PRN Reason: Agitation Stop: 09/13/19 22:47 Last Admin: 07/16/19 01:14 Dose: 50 mg Docusate Sodium (Colace) 100 mg PO DAILY YASSINE Stop: 09/14/19 08:59 Last Admin: 07/17/19 08:46 Dose: 100 mg Escitalopram Oxalate (Lexapro) 20 mg PO DAILY YASSINE; Protocol Stop: 09/14/19 08:59 Last Admin: 07/17/19 08:46 Dose: 20 mg Lisinopril (Zestril) 20 mg PO DAILY YASSINE Stop: 09/14/19 08:59 Last Admin: 07/17/19 09:01 Dose: Not Given Loperamide HCl (Imodium) 2 mg PO Q8HR PRN PRN Reason: Diarrhea Stop: 09/13/19 22:38 Lorazepam (Ativan) 0.5 mg PO Q6HR PRN; Protocol PRN Reason: Anxiety Stop: 08/14/19 22:23 Last Admin: 07/16/19 06:53 Dose: 0.5 mg Lorazepam (Ativan) 0.5 mg PO TID YASSINE; Protocol Stop: 09/14/19 08:59 Last Admin: 07/17/19 08:46 Dose: 0.5 mg Magnesium Hydroxide (Milk Of Magnesia) 30 ml PO HS PRN PRN Reason: Constipation Pantoprazole Sodium (Protonix) 40 mg PO DAILY YASSINE Stop: 09/14/19 08:59 Last Admin: 07/17/19 08:46 Dose: 40 mg Quetiapine Fumarate (Seroquel) 100 mg PO HS YASSINE Stop: 09/14/19 20:59 Last Admin: 07/16/19 21:04 Dose: 100 mg Tamsulosin HCl (Flomax) 0.4 mg PO DAILY YASSINE Stop: 09/15/19 08:59 Last Admin: 07/17/19 08:46 Dose: 0.4 mg Zolpidem Tartrate (Ambien) 5 mg PO HS PRN PRN Reason: Insomnia Stop: 09/13/19 22:23 General: alert HEENT: NC/AT Neck: Supple, No JVD Lungs: CTAB Cardiovascular: RRR, Normal S1, Normal S2 Abdomen: soft Extremities: clear - Procedures Procedures: Procedures Procedure Code Date OTHER GROUP THERAPY 94.44 12/31/12 Internal Medicine Assmt/Plan - Assessment Assessment: 1. DM/HTN 2. GERD 3. ANXIETY 4. BIPOLAR - Plan Plan: REVIEWED BLOOD SUGAR DIARY NO INTERVENTION NECESSARY EXCEPT LOW CARB DIET D/W R.N.
[2019-07-18] MEDS: Pantoprazole 40 mg EC Tab PO SCH (08:36)
[2019-07-18] MEDS: Hydrocodone/APAP 10 mg/325 mg Tab PO PRN (08:36)
--- NOTE | 2019-07-18 10:29 | Progress Notes ---
DATE: 07/18/2019 SUBJECTIVE: Staff was spoken to. The patient is interviewed. Mood is noted to be depressed. Affect is constricted. The patient is isolative and withdrawn. Coping skills are noted to be poor. The patient has been feeling depressed and anxious. The patient is fixated on his lorazepam and pain medications. ASSESSMENT: The patient is depressed. PLAN: To continue the patient with the current medications. I encouraged the patient to verbalize the concerns rather than to act out. JOB# [id number]
[2019-07-19] MEDS: Pantoprazole 40 mg EC Tab PO SCH (08:23)
--- NOTE | 2019-07-19 11:13 | Progress Notes ---
DATE: 07/19/2019 SUBJECTIVE: Staff was spoken to. The patient is interviewed. Mood is noted to be anxious. Affect is constricted. The patient is still depressed. The patient is stating that he is confused and he is fearful that he is going to . Coping skills are noted to be poor at this time. The patient has feelings of helplessness and hopelessness. The patient denies any active hallucinations or delusions are noted, but the patient is not motivated to get into any groups. ASSESSMENT: The patient is severely depressed. PLAN: To continue the patient with the supportive therapy. I encouraged the patient to verbalize the concerns rather than to act out. JOB# [id number]
--- NOTE | 2019-07-19 17:02 | Internal Medicine Prog Note ---
Internal Medicine Subjective - Subjective Service Date: 07/19/19 Patient seen and examined:: without staff Patient is:: awake, verbal, interactive, ambulating Internal Medicine Objective - Results Recent Labs: Laboratory Last Values POC Glucose 115 MG/DL (70 - 105) H 07/15/19 19:59 - Physical Exam Vitals and I&O: Vital Signs Temp 98.0 F 07/19/19 14:00 Pulse 65 07/19/19 14:00 Resp 18 07/19/19 14:00 BP 103/62 07/19/19 14:00 Pulse Ox 93 07/19/19 14:00 Intake & Output 07/18/19 07/19/19 07/19/19 18:59 06:59 18:59 Intake Total 1340 360 Balance 1340 360 Intake: Oral 980 360 Other 360 Other: # Voids 4 1 # Bowel Movements 0 0 Active Medications: Current Medications Acetaminophen (Tylenol) 650 mg PO Q4H PRN PRN Reason: Pain (Mild 1-3) Stop: 09/13/19 22:23 Last Admin: 07/19/19 08:24 Dose: 650 mg Acetaminophen (Tylenol) 650 mg PO Q4H PRN PRN Reason: Fever T Above 100 Stop: 09/13/19 22:23 Hydrocodone Bitart/Acetaminophen ([place] 10 Mg/325 Mg) 1 tab PO Q4H PRN PRN Reason: Moderate to Severe Pain (4-10) Stop: 09/13/19 23:17 Last Admin: 07/18/19 08:36 Dose: 1 tab Al Hydrox/Mg Hydrox/Simethicone (Maalox) 30 ml PO Q4HR PRN PRN Reason: GI DISTRESS Stop: 09/13/19 22:23 Last Admin: 07/17/19 12:00 Dose: 30 ml Diphenhydramine HCl (Benadryl) 50 mg PO Q6HR PRN PRN Reason: Agitation Stop: 09/13/19 22:47 Last Admin: 07/19/19 13:28 Dose: 50 mg Docusate Sodium (Colace) 100 mg PO DAILY YASSINE Stop: 09/14/19 08:59 Last Admin: 07/19/19 08:23 Dose: 100 mg Escitalopram Oxalate (Lexapro) 20 mg PO DAILY YASSINE; Protocol Stop: 09/14/19 08:59 Last Admin: 07/19/19 08:23 Dose: 20 mg Lisinopril (Zestril) 20 mg PO DAILY YASSINE Stop: 09/14/19 08:59 Last Admin: 07/19/19 08:28 Dose: Not Given Loperamide HCl (Imodium) 2 mg PO Q8HR PRN PRN Reason: Diarrhea Stop: 09/13/19 22:38 Last Admin: 07/17/19 18:54 Dose: 2 mg Lorazepam (Ativan) 0.5 mg PO Q6HR PRN; Protocol PRN Reason: Anxiety Stop: 08/14/19 22:23 Last Admin: 07/16/19 06:53 Dose: 0.5 mg Lorazepam (Ativan) 0.5 mg PO TID YASSINE; Protocol Stop: 09/14/19 08:59 Last Admin: 07/19/19 13:28 Dose: 0.5 mg Magnesium Hydroxide (Milk Of Magnesia) 30 ml PO HS PRN PRN Reason: Constipation Pantoprazole Sodium (Protonix) 40 mg PO DAILY YASSINE Stop: 09/14/19 08:59 Last Admin: 07/19/19 08:23 Dose: 40 mg Quetiapine Fumarate (Seroquel) 100 mg PO HS YASSINE Stop: 09/14/19 20:59 Last Admin: 07/18/19 20:25 Dose: 100 mg Tamsulosin HCl (Flomax) 0.4 mg PO DAILY YASSINE Stop: 09/15/19 08:59 Last Admin: 07/19/19 08:23 Dose: 0.4 mg Zolpidem Tartrate (Ambien) 5 mg PO HS PRN PRN Reason: Insomnia Stop: 09/13/19 22:23 Last Admin: 07/18/19 20:25 Dose: 5 mg General: alert HEENT: NC/AT Neck: Supple, No JVD Lungs: CTAB Cardiovascular: RRR, Normal S1, Normal S2 Abdomen: soft Extremities: clear - Procedures Procedures: Procedures Procedure Code Date OTHER GROUP THERAPY 94.44 12/31/12 Internal Medicine Assmt/Plan - Assessment Assessment: 1. DM/HTN 2. GERD 3. ANXIETY 4. BIPOLAR - Plan Plan: REVIEWED BLOOD SUGAR DIARY increase ativan to 1 mg po q6 hours prn
[2019-07-20] MEDS: Pantoprazole 40 mg EC Tab PO SCH (08:58)
--- NOTE | 2019-07-20 13:41 | Internal Medicine Prog Note ---
Internal Medicine Subjective - Subjective Service Date: 07/20/19 Patient seen and examined:: without staff Patient is:: awake, verbal, interactive, ambulating Internal Medicine Objective - Results Recent Labs: Laboratory Last Values POC Glucose 115 MG/DL (70 - 105) H 07/15/19 19:59 - Physical Exam Vitals and I&O: Vital Signs Temp 98.6 F 07/20/19 06:01 Pulse 75 07/20/19 08:58 Resp 18 07/20/19 08:00 BP 126/74 07/20/19 08:58 Pulse Ox 97 07/20/19 06:01 Intake & Output 07/19/19 07/20/19 07/20/19 18:59 06:59 18:59 Intake Total 1200 240 Balance 1200 240 Intake: Oral 1200 240 Other: # Voids 3 2 # Bowel Movements 0 0 Active Medications: Current Medications Acetaminophen (Tylenol) 650 mg PO Q4H PRN PRN Reason: Pain (Mild 1-3) Stop: 09/13/19 22:23 Last Admin: 07/19/19 23:17 Dose: 650 mg Acetaminophen (Tylenol) 650 mg PO Q4H PRN PRN Reason: Fever T Above 100 Stop: 09/13/19 22:23 Hydrocodone Bitart/Acetaminophen ([place] 10 Mg/325 Mg) 1 tab PO Q4H PRN PRN Reason: Moderate to Severe Pain (4-10) Stop: 09/13/19 23:17 Last Admin: 07/18/19 08:36 Dose: 1 tab Al Hydrox/Mg Hydrox/Simethicone (Maalox) 30 ml PO Q4HR PRN PRN Reason: GI DISTRESS Stop: 09/13/19 22:23 Last Admin: 07/17/19 12:00 Dose: 30 ml Diphenhydramine HCl (Benadryl) 50 mg PO Q6HR PRN PRN Reason: Agitation Stop: 09/13/19 22:47 Last Admin: 07/20/19 08:57 Dose: 50 mg Docusate Sodium (Colace) 100 mg PO DAILY YASSINE Stop: 09/14/19 08:59 Last Admin: 07/20/19 08:57 Dose: 100 mg Escitalopram Oxalate (Lexapro) 20 mg PO DAILY YASSINE; Protocol Stop: 09/14/19 08:59 Last Admin: 07/20/19 08:58 Dose: 20 mg Lisinopril (Zestril) 20 mg PO DAILY YASSINE Stop: 09/14/19 08:59 Last Admin: 07/20/19 08:58 Dose: 20 mg Loperamide HCl (Imodium) 2 mg PO Q8HR PRN PRN Reason: Diarrhea Stop: 09/13/19 22:38 Last Admin: 07/17/19 18:54 Dose: 2 mg Lorazepam (Ativan) 0.5 mg PO Q6HR PRN; Protocol PRN Reason: anxiety Stop: 09/17/19 17:02 Last Admin: 07/20/19 11:48 Dose: 0.5 mg Magnesium Hydroxide (Milk Of Magnesia) 30 ml PO HS PRN PRN Reason: Constipation Pantoprazole Sodium (Protonix) 40 mg PO DAILY YASSINE Stop: 09/14/19 08:59 Last Admin: 07/20/19 08:58 Dose: 40 mg Quetiapine Fumarate (Seroquel) 100 mg PO HS YASSINE Stop: 09/14/19 20:59 Last Admin: 07/19/19 20:29 Dose: 100 mg Tamsulosin HCl (Flomax) 0.4 mg PO DAILY YASSINE Stop: 09/15/19 08:59 Last Admin: 07/20/19 08:57 Dose: 0.4 mg Zolpidem Tartrate (Ambien) 5 mg PO HS PRN PRN Reason: Insomnia Stop: 09/13/19 22:23 Last Admin: 07/19/19 20:29 Dose: 5 mg General: alert HEENT: NC/AT Neck: Supple, No JVD Lungs: CTAB Cardiovascular: RRR, Normal S1, Normal S2 Abdomen: soft Extremities: clear - Procedures Procedures: Procedures Procedure Code Date OTHER GROUP THERAPY 94.44 12/31/12 Internal Medicine Assmt/Plan - Assessment Assessment: 1. DM/HTN 2. GERD 3. ANXIETY 4. BIPOLAR - Plan Plan: continue supportive care
[2019-07-20] MEDS: Hydrocodone/APAP 10 mg/325 mg Tab PO PRN ×2 (14:19→18:48)
--- NOTE | 2019-07-20 18:47 | Progress Notes ---
DATE: 07/20/2019 SUBJECTIVE: Staff was spoken to. The patient is interviewed. Mood is noted to be irritable. Affect is constricted. The patient's coping skills are noted to be extremely poor. The patient is isolative and withdrawn. The patient is still voicing suicidal ideation. No homicidal ideation is noted. The patient is more fixated on getting more and more of the Ativan. The patient has been having difficult time. ASSESSMENT: The patient is still having difficult time to deal with the anxiety and also asking for more and more of the Ativan. The patient, however, has been sleeping most of the time and it is decided to decrease the Ativan to 0.5 mg q. 6 p.r.n. and follow the patient with the supportive therapy. JOB# [id number]
[2019-07-21] MEDS: Hydrocodone/APAP 10 mg/325 mg Tab PO PRN ×2 (05:50→11:50)
[2019-07-21] MEDS: Pantoprazole 40 mg EC Tab PO SCH (08:39)
--- NOTE | 2019-07-21 10:46 | Progress Notes ---
DATE: 07/21/2019 SUBJECTIVE: Staff was spoken to. The patient is interviewed. Mood is noted to be irritable. Affect is constricted. The patient's insight and judgment are noted to be still impaired. Impulse control is noted to be limited. Coping skills are noted to be limited. The patient has been having difficult time to cope with the stress and has been threatening to hurt others and the patient has been given 5 mg of the Zyprexa to calm him down. The patient at this time is still very irritable and he is fearful that he is going to be losing control if he were to get into the groups and hence the Depakote 125 mg twice a day has been added to the current regimen of the Seroquel and Lexapro. The patient is going to be closely monitored. JOB# [id number]
--- NOTE | 2019-07-21 10:48 | Consultation ---
DATE OF CONSULTATION: 07/19/2019 REFERRING PHYSICIAN: Basil Magana M.D. TYPE OF CONSULTATION: Psychology. HISTORY OF PRESENT ILLNESS: The patient is a 78-year-old male. The patient is a resident of [facility]. The following is by review of the medical record as well as by the patient's self-report. The patient is being admitted due to acute depression as well as verbalizing suicidal ideation. Upon interview, the patient states that he has been thinking about taking his own life. The patient admits that he is very depressed and states that he cannot deal with his life, the way it is any longer. The patient did not actually verbalize a specific plan; however, the patient's intention is present and verbalized. The staff at the patient's facility reports the patient had become much more depressed over the last month and has had difficulty responding to the treatment and staff direction. The patient had become more frustrated, withdrawn and medication seeking. The patient is requesting medication for sleep and for pain at the time of this clinical interview. The patient was unable to verbally contract for safety. PAST PSYCHIATRIC HISTORY: The patient has multiple previous hospitalizations. The patient has a history of bipolar disorder. The patient is under the care of a psychiatrist at his facility. PAST MEDICAL HISTORY: Please see history and physical by Dr. Wheatley. SUBSTANCE ABUSE HISTORY: The patient denied any history of alcohol, tobacco or illicit drug use. PSYCHOSOCIAL HISTORY: The patient denied any past history of sexual abuse or physical abuse or any current legal problems. The patient states that he is and has one daughter named Juan. The patient did not say whether his daughter is involved in his care. The patient did not answer questions about occupational or educational history or zoroastrian affiliation. The patient reports he expects to return to his jail facility. MENTAL EXAMINATION: The patient appears to be older than his stated age. The patient's attitude is guarded. Eye contact is poor. Mood is depressed. Affect is mood congruent and constricted. Thought process shows to be depressogenic. The patient states his appetite is poor and his sleep is extremely poor. The patient admits active suicidal ideation. The patient denied any homicidal ideation. The patient denied any hallucinations or delusions. The patient's behavior has been withdrawn and isolative. Staff reports the patient's behavior has been medication seeking. Impulse control is poor. Concentration is poor. The patient became frustrated and irritable during the clinical interview. Sensorium is alert and oriented to self and place only. The patient's immediate memory is grossly intact. The patient's short-term memory seems to be impaired. Long-term memory needs further evaluation, but upon initial assessment, seems to be impaired. The patient did not participate in the interpretation of proverbs. Insight is poor. Judgment is impaired. DIAGNOSTIC IMPRESSION: AXIS I: Bipolar disorder, depressed by history. AXIS II: Deferred. AXIS III: Per Dr. Wheatley. TREATMENT PLAN: The patient has been seen by Dr. Magana for psychiatric evaluation and for the management of the patient's psychotropic medications. We will provide supportive psychotherapy to include suicide prevention. We will encourage the patient multiple times on a daily basis to be able to verbally contract for safety and to verbalize any self-harm thoughts to the staff. We will provide coping strategies for phase of life issues. We will provide cognitive behavioral therapy to reduce the patient's depression. The patient seems to be medication seeking and is requesting more Ativan and pain medication according to the staff. We will encourage the patient to follow through and become compliant with all aspects of his care and treatment. We will continue to provide the opportunity for the patient to verbally contract for safety, i.e., no self- harm. We will encourage the patient to participate in the milieu therapy. We will follow up in 2-3 days to continue the present treatment. Thank you, Dr. Magana for this consult and the opportunity to participate with you in this patient's care. [facility]# [id number] [facility]ENTER[facility]
--- NOTE | 2019-07-21 15:25 | Internal Medicine Prog Note ---
Internal Medicine Subjective - Subjective Service Date: 07/21/19 Patient is:: awake, verbal, interactive, ambulating Internal Medicine Objective - Results Recent Labs: Laboratory Last Values POC Glucose 115 MG/DL (70 - 105) H 07/15/19 19:59 - Physical Exam Vitals and I&O: Vital Signs Temp 97.6 F 07/21/19 14:00 Pulse 81 07/21/19 14:00 Resp 20 07/21/19 14:00 BP 94/60 07/21/19 14:00 Pulse Ox 95 07/21/19 14:00 Intake & Output 07/20/19 07/21/19 07/21/19 18:59 06:59 18:59 Intake Total 900 120 Balance 900 120 Intake: Oral 900 120 Other: # Voids 3 2 # Bowel Movements 0 0 Active Medications: Current Medications Acetaminophen (Tylenol) 650 mg PO Q4H PRN PRN Reason: Pain (Mild 1-3) Stop: 09/13/19 22:23 Last Admin: 07/19/19 23:17 Dose: 650 mg Acetaminophen (Tylenol) 650 mg PO Q4H PRN PRN Reason: Fever T Above 100 Stop: 09/13/19 22:23 Hydrocodone Bitart/Acetaminophen ([place] 10 Mg/325 Mg) 1 tab PO Q4H PRN PRN Reason: Moderate to Severe Pain (4-10) Stop: 09/13/19 23:17 Last Admin: 07/21/19 11:50 Dose: 1 tab Al Hydrox/Mg Hydrox/Simethicone (Maalox) 30 ml PO Q4HR PRN PRN Reason: GI DISTRESS Stop: 09/13/19 22:23 Last Admin: 07/17/19 12:00 Dose: 30 ml Diphenhydramine HCl (Benadryl) 50 mg PO Q6HR PRN PRN Reason: Agitation Stop: 09/13/19 22:47 Last Admin: 07/21/19 00:19 Dose: 50 mg Divalproex Sodium (Depakote Dr) 125 mg PO Q12HR YASSINE; Protocol Stop: 09/19/19 08:59 Last Admin: 07/21/19 08:51 Dose: Not Given Docusate Sodium (Colace) 100 mg PO DAILY YASSINE Stop: 09/14/19 08:59 Last Admin: 07/21/19 08:39 Dose: 100 mg Escitalopram Oxalate (Lexapro) 20 mg PO DAILY [facility]; Protocol Stop: 09/14/19 08:59 Last Admin: 07/21/19 08:38 Dose: 20 mg Lisinopril (Zestril) 20 mg PO DAILY YASSINE Stop: 09/14/19 08:59 Last Admin: 07/21/19 08:39 Dose: 20 mg Loperamide HCl (Imodium) 2 mg PO Q8HR PRN PRN Reason: Diarrhea Stop: 09/13/19 22:38 Last Admin: 07/17/19 18:54 Dose: 2 mg Lorazepam (Ativan) 0.5 mg PO Q6HR PRN; Protocol PRN Reason: anxiety Stop: 09/17/19 17:02 Last Admin: 07/21/19 08:50 Dose: 0.5 mg Magnesium Hydroxide (Milk Of Magnesia) 30 ml PO HS PRN PRN Reason: Constipation Pantoprazole Sodium (Protonix) 40 mg PO DAILY YASSINE Stop: 09/14/19 08:59 Last Admin: 07/21/19 08:39 Dose: 40 mg Quetiapine Fumarate (Seroquel) 100 mg PO HS YASSINE Stop: 09/14/19 20:59 Last Admin: 07/20/19 21:06 Dose: 100 mg Quetiapine Fumarate (Seroquel) 25 mg PO DAILY [facility]; Protocol Stop: 09/19/19 08:59 Last Admin: 07/21/19 09:05 Dose: 25 mg Tamsulosin HCl (Flomax) 0.4 mg PO DAILY [facility] Stop: 09/15/19 08:59 Last Admin: 07/21/19 08:38 Dose: 0.4 mg Zolpidem Tartrate (Ambien) 5 mg PO HS PRN PRN Reason: Insomnia Stop: 09/13/19 22:23 Last Admin: 07/20/19 21:06 Dose: 5 mg General: alert HEENT: NC/AT Neck: Supple, No JVD Lungs: CTAB Cardiovascular: RRR, Normal S1, Normal S2 Abdomen: soft Extremities: clear - Procedures Procedures: Procedures Procedure Code Date OTHER GROUP THERAPY 94.44 12/31/12 Internal Medicine Assmt/Plan - Assessment Assessment: 1. DM/HTN 2. GERD 3. ANXIETY 4. BIPOLAR - Plan Plan: continue supportive care Nutritional Asmnt/Malnutr-PDOC - Dietary Evaluation Malnutrition Findings (Please click <Entered> for more info): Nutritional Asmnt/Malnutrition Start: 07/20/19 14: 19 Text: Status: Complete Freq: Protocol: Document 07/20/19 14:19 SEBASTIEN (Rec: 07/20/19 14:21 SEBASTIEN [id number]) Nutritional Asmnt/Malnutrition Patient General Information Nutritional Screening Low Risk Diagnosis Psychosis Pertinent Medical Hx/Surgical Hx DM, GERD, Anxiety, Depression, Bipolar disorder, HTN, Schwannoma Subjective Information Pt is a 78-year-old male admitted on 07/20 d/t depression and wanting to . Pt is eating an estimated 70% of meals since admit date (x4 days) Per Meal/Nutrition Activity Record. Dietary is currently providing an estimated 2500 kcals and 120 gm Pro, per Pt PO intake this is providing an estimated 1750 kcals and 84gm Pro to meet 83 % kcal and 100% Pro needs- adequate. Will continue to monitor PO intake. Visited pt in room, pt was awake but did not answer when I introduced myself. Pt just looked down and shut his eyes when I spoke with him, did not respond. Recommending CCHO diet to help control BG levels d/t Hx DM and labs (07/14) POC Glucose 115, A1c 5.7%. Anthropometrics HT: 65 WT: 184 LB (83.64 kg) BMI: 21.84 (normal) GI/ Skin Integrity GI: WNL, Soft, Non-tender, Flat BM: 07/15 x1 I/O: 1440/Not Noted Skin: WNL, Intact Natalio: 21 Diet Order: Regular Estimated Energy Needs: ( Geriatric, CBW) 8626-4021 kcals (25-30 kcals/ kg) 85-100g Pro (1.0-1.2 g/kg) 2437-2860 ml (25-30 ml/kg) Current Diet Order/ Nutrition Support Regular Pertinent Medications Maalox (PRN), Colace, Imodium (PRN), MOM (PRN), Protonix, Flomax Pertinent Labs 07/14: A1C 5.7%, HDL 42, Alb 3. 7 07/14: POC Glucose 115 Nutritional Hx/Data Height 1.96 m Height (Calculated Centimeters) 195.6 Current Weight (lbs) 83.461 kg Weight (Calculated Kilograms) 83.5 Weight (Calculated Grams) 54352.0 [place] Body Weight 208 LB (94.55 kg) % [place] Body Weight 88 Body Mass Index (BMI) 21.8 Weight Status Approriate GI Symptoms Last BM 07/15 x1 Skin Integrity/Comment: Skin: WNL, Intact Natalio: 21 Estimated Nutritional Goals BEE in Kcals: Using Current wt Calories/Kcals/Kg 25-30 Kcals Calculated 9712-3362 Protein: Using Current wt Protein g/k.0-1.2 Protein Calculated 85-100 Fluid: ml 0320-2447 ml (25-30 ml/kg) Nutritional Problem 1. Problem Problem Impaired nutrient utilization Etiology r/t endocrine dysfunction Signs/Symptoms: aeb Hx DM, labs (07/14) POC Glucose 115, A1C 5.7%. Malnutrition Related to Morbid Obesity Malnutrition related to morbid obesity No Intervention/Recommendation Comments [facility]. Expected Outcomes/Goals Expected Outcomes/Goals 1.PO intake to meet 75% of estimated nutritional needs. 2.Monitor PO intake, wt, nutrition related labs, and skin integrity. 3.F/U as low risk in 7-10 days , 07/26-07/29.
[2019-07-22] MEDS: Pantoprazole 40 mg EC Tab PO SCH (08:20)
--- NOTE | 2019-07-22 08:35 | Progress Notes ---
DATE: 07/22/2019 SUBJECTIVE: Staff was spoken to. The patient is interviewed. Mood is noted to be irritable. Affect is constricted. The patient is still focused on medications. Insight and judgment are noted to be still impaired. Impulse control is noted to be poor. The patient is not able to contract for safety. The patient is stating that he has been getting more irritable and does not like hurting others and hence the patient has been placed on the Depakote. I am planning to gradually increase the dose and follow the patient up. JOB# [id number]
--- NOTE | 2019-07-22 12:18 | Internal Medicine Prog Note ---
Internal Medicine Subjective - Subjective Service Date: 07/22/19 Patient seen and examined:: without staff Patient is:: awake, verbal, interactive, ambulating Internal Medicine Objective - Results Recent Labs: Laboratory Last Values POC Glucose 115 MG/DL (70 - 105) H 07/15/19 19:59 - Physical Exam Vitals and I&O: Vital Signs Temp 97.9 F 07/22/19 05:48 Pulse 104 07/22/19 08:21 Resp 20 07/22/19 05:48 BP 139/93 07/22/19 08:21 Pulse Ox 95 07/22/19 05:48 Intake & Output 07/21/19 07/22/19 07/22/19 18:59 06:59 18:59 Intake Total 1200 240 Balance 1200 240 Intake: Oral 1200 240 Other: # Voids 2 # Bowel Movements 1 0 Active Medications: Current Medications Acetaminophen (Tylenol) 650 mg PO Q4H PRN PRN Reason: Pain (Mild 1-3) Stop: 09/13/19 22:23 Last Admin: 07/19/19 23:17 Dose: 650 mg Acetaminophen (Tylenol) 650 mg PO Q4H PRN PRN Reason: Fever T Above 100 Stop: 09/13/19 22:23 Hydrocodone Bitart/Acetaminophen ([place] 10 Mg/325 Mg) 1 tab PO Q4H PRN PRN Reason: Moderate to Severe Pain (4-10) Stop: 09/13/19 23:17 Last Admin: 07/21/19 11:50 Dose: 1 tab Al Hydrox/Mg Hydrox/Simethicone (Maalox) 30 ml PO Q4HR PRN PRN Reason: GI DISTRESS Stop: 09/13/19 22:23 Last Admin: 07/17/19 12:00 Dose: 30 ml Diphenhydramine HCl (Benadryl) 50 mg PO Q6HR PRN PRN Reason: Agitation Stop: 09/13/19 22:47 Last Admin: 07/21/19 00:19 Dose: 50 mg Divalproex Sodium (Depakote Dr) 125 mg PO Q12HR Y[facility]; Protocol Stop: 09/19/19 08:59 Last Admin: 07/21/19 08:51 Dose: Not Given Docusate Sodium (Colace) 100 mg PO DAILY [facility] Stop: 09/14/19 08:59 Last Admin: 07/22/19 08:21 Dose: 100 mg Escitalopram Oxalate (Lexapro) 20 mg PO DAILY [facility]; Protocol Stop: 09/14/19 08:59 Last Admin: 07/22/19 08:21 Dose: 20 mg Lisinopril (Zestril) 20 mg PO DAILY [facility] Stop: 09/14/19 08:59 Last Admin: 07/22/19 08:21 Dose: 20 mg Loperamide HCl (Imodium) 2 mg PO Q8HR PRN PRN Reason: Diarrhea Stop: 09/13/19 22:38 Last Admin: 07/17/19 18:54 Dose: 2 mg Lorazepam (Ativan) 0.5 mg PO Q6HR PRN; Protocol PRN Reason: anxiety Stop: 09/17/19 17:02 Last Admin: 07/21/19 08:50 Dose: 0.5 mg Magnesium Hydroxide (Milk Of Magnesia) 30 ml PO HS PRN PRN Reason: Constipation Pantoprazole Sodium (Protonix) 40 mg PO DAILY [facility] Stop: 09/14/19 08:59 Last Admin: 07/22/19 08:20 Dose: 40 mg Quetiapine Fumarate (Seroquel) 100 mg PO HS [facility] Stop: 09/14/19 20:59 Last Admin: 07/21/19 21:17 Dose: 100 mg Quetiapine Fumarate (Seroquel) 25 mg PO DAILY [facility]; Protocol Stop: 09/19/19 08:59 Last Admin: 07/22/19 08:21 Dose: 25 mg Tamsulosin HCl (Flomax) 0.4 mg PO DAILY [facility] Stop: 09/15/19 08:59 Last Admin: 07/22/19 08:20 Dose: 0.4 mg Zolpidem Tartrate (Ambien) 5 mg PO HS PRN PRN Reason: Insomnia Stop: 09/13/19 22:23 Last Admin: 07/20/19 21:06 Dose: 5 mg General: alert HEENT: NC/AT Neck: Supple, No JVD Lungs: CTAB Cardiovascular: RRR, Normal S1, Normal S2 Abdomen: soft Extremities: clear - Procedures Procedures: Procedures Procedure Code Date OTHER GROUP THERAPY 94.44 12/31/12 Internal Medicine Assmt/Plan - Assessment Assessment: 1. DM/HTN 2. GERD 3. ANXIETY 4. BIPOLAR - Plan Plan: continue supportive care Nutritional Asmnt/Malnutr-PDOC - Dietary Evaluation Malnutrition Findings (Please click <Entered> for more info): Nutritional Asmnt/Malnutrition Start: 07/20/19 14: 19 Text: Status: Complete Freq: Protocol: Document 07/20/19 14:19 SEBASTIEN (Rec: 07/20/19 14:21 SEBASTIEN [id number]) Nutritional Asmnt/Malnutrition Patient General Information Nutritional Screening Low Risk Diagnosis Psychosis Pertinent Medical Hx/Surgical Hx DM, GERD, Anxiety, Depression, Bipolar disorder, HTN, Schwannoma Subjective Information Pt is a 78-year-old male admitted on 07/20 d/t depression and wanting to . Pt is eating an estimated 70% of meals since admit date (x4 days) Per Meal/Nutrition Activity Record. Dietary is currently providing an estimated 2500 kcals and 120 gm Pro, per Pt PO intake this is providing an estimated 1750 kcals and 84gm Pro to meet 83 % kcal and 100% Pro needs- adequate. Will continue to monitor PO intake. Visited pt in room, pt was awake but did not answer when I introduced myself. Pt just looked down and shut his eyes when I spoke with him, did not respond. Recommending CCHO diet to help control BG levels d/t Hx DM and labs (07/14) POC Glucose 115, A1c 5.7%. Anthropometrics HT: 65 WT: 184 LB (83.64 kg) BMI: 21.84 (normal) GI/ Skin Integrity GI: WNL, Soft, Non-tender, Flat BM: 07/15 x1 I/O: 1440/Not Noted Skin: WNL, Intact Natalio: 21 Diet Order: Regular Estimated Energy Needs: ( Geriatric, CBW) 5933-8522 kcals (25-30 kcals/ kg) 85-100g Pro (1.0-1.2 g/kg) 4905-1742 ml (25-30 ml/kg) Current Diet Order/ Nutrition Support Regular Pertinent Medications Maalox (PRN), Colace, Imodium (PRN), MOM (PRN), Protonix, Flomax Pertinent Labs 07/14: A1C 5.7%, HDL 42, Alb 3. 7 07/14: POC Glucose 115 Nutritional Hx/Data Height 1.96 m Height (Calculated Centimeters) 195.6 Current Weight (lbs) 83.461 kg Weight (Calculated Kilograms) 83.5 Weight (Calculated Grams) 02928.0 [place] Body Weight 208 LB (94.55 kg) % [place] Body Weight 88 Body Mass Index (BMI) 21.8 Weight Status Approriate GI Symptoms Last BM 07/15 x1 Skin Integrity/Comment: Skin: WNL, Intact Natalio: 21 Estimated Nutritional Goals BEE in Kcals: Using Current wt Calories/Kcals/Kg 25-30 Kcals Calculated 9286-4850 Protein: Using Current wt Protein g/k.0-1.2 Protein Calculated 85-100 Fluid: ml 2747-0398 ml (25-30 ml/kg) Nutritional Problem 1. Problem Problem Impaired nutrient utilization Etiology r/t endocrine dysfunction Signs/Symptoms: aeb Hx DM, labs (07/14) POC Glucose 115, A1C 5.7%. Malnutrition Related to Morbid Obesity Malnutrition related to morbid obesity No Intervention/Recommendation Comments Recommend CCHO diet. Expected Outcomes/Goals Expected Outcomes/Goals 1.PO intake to meet 75% of estimated nutritional needs. 2.Monitor PO intake, wt, nutrition related labs, and skin integrity. 3.F/U as low risk in 7-10 days , 07/26-07/29.
--- NOTE | 2019-07-22 14:40 | Progress Notes ---
DATE: 07/21/2019 PSYCHOLOGY PROGRESS NOTE SUBJECTIVE: The patient is seen in his room and is interviewed. Case is discussed with staff. Staff reports the patient has been medication seeking and is persistently asking for pain medication and Ativan. The patient's insight is poor. The patient was not able to verbally contract for safety with the staff or with this investigative writer. The patient is easily irritated and presents as depressed and somewhat dismissive. The patient is not answering some of the clinical questions. OBJECTIVE: Mood is depressed and irritable. Affect is constricted. Thought process shows to be depressogenic with perseveration on seeking medications. The patient did not answer questions about experiencing auditory or visual hallucinations or delusions. The patient has a history of suicidal ideation, but did not answer the question as to whether he is experiencing suicidal thoughts. The patient was unable to verbally contract for safety. Objectively, the patient's behavior has been medication seeking and difficult to cognitively redirect. The patient is not following through with the treatment protocols. He is withdrawn with periods of confusion and agitation. ASSESSMENT: The patient's depression and noncompliance persists. PLAN: The patient has been placed on Depakote according to the attending psychiatrist. We provided remotivation for the patient to become compliant and stay compliant with all aspects of his care and treatment. We educated the patient as to the limits of pain medication and prescribing protocols as well as for benzodiazepines. The patient is either wilfully denying any understanding of this or is incapable and confused of understanding these instructions and the information. We provided de-escalation and reality integration as well. We will follow up in 2-3 days to continue the present treatment if the patient remains on the unit and is able to demonstrate the capacity to benefit from psychology services. JOB# [id number] PHYLICIA
[2019-07-23] MEDS: Pantoprazole 40 mg EC Tab PO SCH (08:30)
--- NOTE | 2019-07-23 13:09 | Progress Notes ---
DATE: 07/23/2019 SUBJECTIVE: Staff was spoken to. The patient is interviewed. Mood is noted to be depressed. Affect is constricted. The patient is complaining that he has been having a problem, not able to pass the urine and the urine specimen has been collected we are waiting on the urinary analysis. The patient's coping skills at this time are noted to be very poor. Insight and judgment are also noted to be very limited. The patient has been having difficult time to cope with the stress. No side effects to the medications are noted. The patient, however, has been presenting with anxiety symptoms and wants more and more of the Ativan. ASSESSMENT: The patient is still impulsive. PLAN: To continue the patient with the supportive therapy, encouraged the patient to verbalize the concerns rather than to act out. The patient has been vaguely mentioning about the thoughts of hurting other people, but has not acted out so far. We are closely monitoring the patient. JOB# [id number]
[2019-07-24] MEDS: Pantoprazole 40 mg EC Tab PO SCH (08:22)
--- NOTE | 2019-07-24 10:18 | Progress Notes ---
DATE: 07/23/2019 SUBJECTIVE: The patient is seen sitting on the edge of his bed in his room. The patient is interviewed. Case has been discussed with staff. The patient continues to present as depressed. Staff reports the patient is complaining that he is having difficulty urinating apparently a urinary analysis has been ordered. Staff reports the patient continues to have difficulty coping as well as continuing to be medication seeking and asking for more Ativan due to increased anxiety. The patient appears to be experiencing thoughts of hurting other people and suspiciousness. OBJECTIVE: Mood is anxious and depressed. Affect is constricted. Thought process includes perseveration on medication requests specifically benzodiazepines and opioid analgesics. The patient did not answer questions about experiencing suicidal ideation with plan or intention. However, the patient is verbalizing passive homicidal ideation, i.e., hurting others. The patient continues to be difficult to redirect and is amotivated, anergic and isolative. ASSESSMENT: The patient's impulse control and poor compliance with treatment persists. The patient's medication seeking behavior also continues. PLAN: We provided remotivation for the patient to become compliant and stay compliant with all aspects of his treatment. We encouraged the patient to verbalize his concerns versus acting out. We provided continued education and explanation regarding the limits to prescribing benzodiazepines as well as opioid analgesics. The patient seems to be experiencing thoughts of hurting other people as noted by the staff as well as the attending psychiatrist. We provided the opportunity for the patient to verbally contract for safety. The patient declined to contract for safety, i.e., no self-harm and no harm to others. We continued suicidal prevention and encourage the patient to verbalize any thoughts regarding aggression towards others. The patient will be closely monitored. We will follow up in 2 days to continue the present treatment if the patient remains on the unit and is able to demonstrate the capacity to benefit from psychology services. JOB# [id number] PHYLICIA
--- NOTE | 2019-07-24 11:46 | Internal Medicine Prog Note ---
Internal Medicine Subjective - Subjective Service Date: 07/24/19 Patient seen and examined:: with staff (complaining of anxiety) Patient is:: awake, verbal, interactive, ambulating Internal Medicine Objective - Results Recent Labs: Laboratory Last Values POC Glucose 115 MG/DL (70 - 105) H 07/15/19 19:59 - Physical Exam Vitals and I&O: Vital Signs Temp 97.9 F 07/24/19 06:12 Pulse 88 07/24/19 09:23 Resp 19 07/24/19 06:12 BP 115/72 07/24/19 09:23 Pulse Ox 98 07/24/19 06:12 Intake & Output 07/23/19 07/24/19 07/24/19 18:59 06:59 18:59 Intake Total 400 Balance 400 Intake: Oral 400 Other: # Voids 2 2 # Bowel Movements 0 0 Active Medications: Current Medications Acetaminophen (Tylenol) 650 mg PO Q4H PRN PRN Reason: Pain (Mild 1-3) Stop: 09/13/19 22:23 Last Admin: 07/23/19 13:19 Dose: 650 mg Acetaminophen (Tylenol) 650 mg PO Q4H PRN PRN Reason: Fever T Above 100 Stop: 09/13/19 22:23 Hydrocodone Bitart/Acetaminophen ([place] 10 Mg/325 Mg) 1 tab PO Q4H PRN PRN Reason: Moderate to Severe Pain (4-10) Stop: 09/13/19 23:17 Last Admin: 07/21/19 11:50 Dose: 1 tab Al Hydrox/Mg Hydrox/Simethicone (Maalox) 30 ml PO Q4HR PRN PRN Reason: GI DISTRESS Stop: 09/13/19 22:23 Last Admin: 07/17/19 12:00 Dose: 30 ml Diphenhydramine HCl (Benadryl) 50 mg PO Q6HR PRN PRN Reason: Agitation Stop: 09/13/19 22:47 Last Admin: 07/24/19 11:15 Dose: 50 mg Divalproex Sodium (Depakote Dr) 125 mg PO Q12HR [facility]; Protocol Stop: 09/19/19 08:59 Last Admin: 07/24/19 08:25 Dose: 125 mg Docusate Sodium (Colace) 100 mg PO DAILY [facility] Stop: 09/14/19 08:59 Last Admin: 07/24/19 08:22 Dose: 100 mg Escitalopram Oxalate (Lexapro) 20 mg PO DAILY [facility]; Protocol Stop: 09/14/19 08:59 Last Admin: 07/24/19 08:23 Dose: 20 mg Levofloxacin (Levaquin) 500 mg PO DAILY [facility] Stop: 07/27/19 08:59 Last Admin: 07/24/19 08:23 Dose: 500 mg Lisinopril (Zestril) 20 mg PO DAILY [facility] Stop: 09/14/19 08:59 Last Admin: 07/24/19 08:23 Dose: 20 mg Loperamide HCl (Imodium) 2 mg PO Q8HR PRN PRN Reason: Diarrhea Stop: 09/13/19 22:38 Last Admin: 07/17/19 18:54 Dose: 2 mg Lorazepam (Ativan) 0.5 mg PO Q6HR PRN; Protocol PRN Reason: anxiety Stop: 09/17/19 17:02 Last Admin: 07/24/19 09:09 Dose: 0.5 mg Magnesium Hydroxide (Milk Of Magnesia) 30 ml PO HS PRN PRN Reason: Constipation Pantoprazole Sodium (Protonix) 40 mg PO DAILY [facility] Stop: 09/14/19 08:59 Last Admin: 07/24/19 08:22 Dose: 40 mg Quetiapine Fumarate (Seroquel) 100 mg PO HS [facility] Stop: 09/14/19 20:59 Last Admin: 07/23/19 21:22 Dose: 100 mg Quetiapine Fumarate (Seroquel) 25 mg PO DAILY [facility]; Protocol Stop: 09/19/19 08:59 Last Admin: 07/24/19 08:22 Dose: 25 mg Tamsulosin HCl (Flomax) 0.4 mg PO DAILY [facility] Stop: 09/15/19 08:59 Last Admin: 07/24/19 08:23 Dose: 0.4 mg Zolpidem Tartrate (Ambien) 5 mg PO HS PRN PRN Reason: Insomnia Stop: 09/13/19 22:23 Last Admin: 07/20/19 21:06 Dose: 5 mg General: alert HEENT: NC/AT Neck: Supple, No JVD Lungs: CTAB Cardiovascular: RRR, Normal S1, Normal S2 Abdomen: soft Extremities: clear - Procedures Procedures: Procedures Procedure Code Date OTHER GROUP THERAPY 94.44 12/31/12 Internal Medicine Assmt/Plan - Assessment Assessment: 1. DM/HTN 2. GERD 3. ANXIETY 4. BIPOLAR 5. UTI - Plan Plan: continue levaquin for uti BP is controlled on lisinopril d/w r.n. Nutritional Asmnt/Malnutr-PDOC - Dietary Evaluation Malnutrition Findings (Please click <Entered> for more info): Nutritional Asmnt/Malnutrition Start: 07/20/19 14: 19 Text: Status: Complete Freq: Protocol: Document 07/20/19 14:19 SEBASTIEN (Rec: 07/20/19 14:21 [email or web address] [id number]) Nutritional Asmnt/Malnutrition Patient General Information Nutritional Screening Low Risk Diagnosis Psychosis Pertinent Medical Hx/Surgical Hx DM, GERD, Anxiety, Depression, Bipolar disorder, HTN, Schwannoma Subjective Information Pt is a 78-year-old male admitted on 07/20 d/t depression and wanting to . Pt is eating an estimated 70% of meals since admit date (x4 days) Per Meal/Nutrition Activity Record. Dietary is currently providing an estimated 2500 kcals and 120 gm Pro, per Pt PO intake this is providing an estimated 1750 kcals and 84gm Pro to meet 83 % kcal and 100% Pro needs- adequate. Will continue to monitor PO intake. Visited pt in room, pt was awake but did not answer when I introduced myself. Pt just looked down and shut his eyes when I spoke with him, did not respond. Recommending CCHO diet to help control BG levels d/t Hx DM and labs (07/14) POC Glucose 115, A1c 5.7%. Anthropometrics HT: 65 WT: 184 LB (83.64 kg) BMI: 21.84 (normal) GI/ Skin Integrity GI: WNL, Soft, Non-tender, Flat BM: 07/15 x1 I/O: 1440/Not Noted Skin: WNL, Intact Natalio: 21 Diet Order: Regular Estimated Energy Needs: ( Geriatric, CBW) 6293-2856 kcals (25-30 kcals/ kg) 85-100g Pro (1.0-1.2 g/kg) 2527-0637 ml (25-30 ml/kg) Current Diet Order/ Nutrition Support Regular Pertinent Medications Maalox (PRN), Colace, Imodium (PRN), MOM (PRN), Protonix, Flomax Pertinent Labs 07/14: A1C 5.7%, HDL 42, Alb 3. 7 07/14: POC Glucose 115 Nutritional Hx/Data Height 1.96 m Height (Calculated Centimeters) 195.6 Current Weight (lbs) 83.461 kg Weight (Calculated Kilograms) 83.5 Weight (Calculated Grams) 53235.0 [place] Body Weight 208 LB (94.55 kg) % [place] Body Weight 88 Body Mass Index (BMI) 21.8 Weight Status Approriate GI Symptoms Last BM 07/15 x1 Skin Integrity/Comment: Skin: WNL, Intact Natalio: 21 Estimated Nutritional Goals BEE in Kcals: Using Current wt Calories/Kcals/Kg 25-30 Kcals Calculated 2355-2323 Protein: Using Current wt Protein g/k.0-1.2 Protein Calculated 85-100 Fluid: ml 9111-6908 ml (25-30 ml/kg) Nutritional Problem 1. Problem Problem Impaired nutrient utilization Etiology r/t endocrine dysfunction Signs/Symptoms: aeb Hx DM, labs (07/14) POC Glucose 115, A1C 5.7%. Malnutrition Related to Morbid Obesity Malnutrition related to morbid obesity No Intervention/Recommendation Comments Recommend [facility] [place] diet. Expected Outcomes/Goals Expected Outcomes/Goals 1.PO intake to meet 75% of estimated nutritional needs. 2.Monitor PO intake, wt, nutrition related labs, and skin integrity. 3.F/U as low risk in 7-10 days , 07/26-07/29.
[2019-07-24] MEDS: Hydrocodone/APAP 10 mg/325 mg Tab PO PRN (11:49)
--- NOTE | 2019-07-24 21:16 | Progress Notes ---
DATE: 07/24/2019 PSYCHIATRIC PROGRESS NOTE SUBJECTIVE: Staff was spoken to. The patient is interviewed. Mood is noted to be depressed. Affect is constricted. The patient has been presenting with severe depression and constantly seeking more and more medications. Insight and judgment are noted to be still impaired. Impulse control seems to be limited. The patient has been mentioning that he has been having problems with the urination and the patient has been encouraged to participate in the groups. The patient's coping skills at this time are noted to be very poor. No side effects to the medications are noted. The patient has been having difficult time to cope with the stress. The patient is reporting that he needs to go back to the hospital to get some help for his urinary tract infection. Staff is closely monitoring the patient. The patient at this time has not been having acute suicidal ideation, but has been having the anger problems and he is feeling that he is going to be losing control and then might hurt someone. ASSESSMENT: The patient is still impulsive at this time. PLAN: To continue the patient with the current medications and encouraged the patient to verbalize the concerns rather than to act out. JOB# [id number]
[2019-07-25] MEDS: Pantoprazole 40 mg EC Tab PO SCH (08:44)
--- NOTE | 2019-07-25 13:57 | Internal Medicine Prog Note ---
Internal Medicine Subjective - Subjective Service Date: 07/25/19 Patient seen and examined:: without staff Patient is:: awake, verbal, interactive, ambulating Internal Medicine Objective - Results Recent Labs: Laboratory Last Values POC Glucose 115 MG/DL (70 - 105) H 07/15/19 19:59 - Physical Exam Vitals and I&O: Vital Signs Temp 98.5 F 07/25/19 06:24 Pulse 68 07/25/19 08:47 Resp 18 07/25/19 08:00 BP 92/57 07/25/19 08:47 Pulse Ox 96 07/25/19 06:24 Intake & Output 07/24/19 07/25/19 07/25/19 18:59 06:59 18:59 Intake Total 360 Balance 360 Intake: Oral 360 Other: # Voids 2 3 # Bowel Movements 0 0 Active Medications: Current Medications Acetaminophen (Tylenol) 650 mg PO Q4H PRN PRN Reason: Pain (Mild 1-3) Stop: 09/13/19 22:23 Last Admin: 07/23/19 13:19 Dose: 650 mg Acetaminophen (Tylenol) 650 mg PO Q4H PRN PRN Reason: Fever T Above 100 Stop: 09/13/19 22:23 Hydrocodone Bitart/Acetaminophen ([place] 10 Mg/325 Mg) 1 tab PO Q4H PRN PRN Reason: Moderate to Severe Pain (4-10) Stop: 09/13/19 23:17 Last Admin: 07/24/19 11:49 Dose: 1 tab Al Hydrox/Mg Hydrox/Simethicone (Maalox) 30 ml PO Q4HR PRN PRN Reason: GI DISTRESS Stop: 09/13/19 22:23 Last Admin: 07/17/19 12:00 Dose: 30 ml Diphenhydramine HCl (Benadryl) 50 mg PO Q6HR PRN PRN Reason: Agitation Stop: 09/13/19 22:47 Last Admin: 07/24/19 11:15 Dose: 50 mg Divalproex Sodium (Depakote Dr) 125 mg PO Q12HR [facility]; Protocol Stop: 09/19/19 08:59 Last Admin: 07/25/19 08:45 Dose: 125 mg Docusate Sodium (Colace) 100 mg PO DAILY [facility] Stop: 09/14/19 08:59 Last Admin: 07/25/19 08:45 Dose: 100 mg Escitalopram Oxalate (Lexapro) 20 mg PO DAILY [facility]; Protocol Stop: 09/14/19 08:59 Last Admin: 07/25/19 08:44 Dose: 20 mg Levofloxacin (Levaquin) 500 mg PO DAILY [facility] Stop: 07/27/19 08:59 Last Admin: 07/25/19 08:45 Dose: 500 mg Lisinopril (Zestril) 20 mg PO DAILY [facility] Stop: 09/14/19 08:59 Last Admin: 07/25/19 08:47 Dose: 20 mg Loperamide HCl (Imodium) 2 mg PO Q8HR PRN PRN Reason: Diarrhea Stop: 09/13/19 22:38 Last Admin: 07/17/19 18:54 Dose: 2 mg Lorazepam (Ativan) 0.5 mg PO Q6HR PRN; Protocol PRN Reason: anxiety Stop: 09/17/19 17:02 Last Admin: 07/25/19 01:03 Dose: 0.5 mg Magnesium Hydroxide (Milk Of Magnesia) 30 ml PO HS PRN PRN Reason: Constipation Pantoprazole Sodium (Protonix) 40 mg PO DAILY [facility] Stop: 09/14/19 08:59 Last Admin: 07/25/19 08:44 Dose: 40 mg Quetiapine Fumarate (Seroquel) 100 mg PO HS [facility] Stop: 09/14/19 20:59 Last Admin: 07/24/19 20:45 Dose: 100 mg Quetiapine Fumarate (Seroquel) 25 mg PO DAILY [facility]; Protocol Stop: 09/19/19 08:59 Last Admin: 07/25/19 08:45 Dose: 25 mg Tamsulosin HCl (Flomax) 0.4 mg PO DAILY [facility] Stop: 09/15/19 08:59 Last Admin: 07/25/19 08:44 Dose: 0.4 mg Zolpidem Tartrate (Ambien) 5 mg PO HS PRN PRN Reason: Insomnia Stop: 09/13/19 22:23 Last Admin: 07/24/19 22:27 Dose: 5 mg General: alert HEENT: NC/AT Neck: Supple, No JVD Lungs: CTAB Cardiovascular: RRR, Normal S1, Normal S2 Abdomen: soft Extremities: clear - Procedures Procedures: Procedures Procedure Code Date OTHER GROUP THERAPY 94.44 12/31/12 Internal Medicine Assmt/Plan - Assessment Assessment: 1. DM/HTN 2. GERD 3. ANXIETY 4. BIPOLAR 5. UTI - Plan Plan: continue levaquin for uti BP is controlled on lisinopril d/w r.n. Nutritional Asmnt/Malnutr-PDOC - Dietary Evaluation Malnutrition Findings (Please click <Entered> for more info): Nutritional Asmnt/Malnutrition Start: 07/20/19 14: 19 Text: Status: Complete Freq: Protocol: Document 07/20/19 14:19 CASSIEANGELINEJOON (Rec: 07/20/19 14:21 [email or web address] [id number]) Nutritional Asmnt/Malnutrition Patient General Information Nutritional Screening Low Risk Diagnosis Psychosis Pertinent Medical Hx/Surgical Hx DM, GERD, Anxiety, Depression, Bipolar disorder, HTN, Schwannoma Subjective Information Pt is a 78-year-old male admitted on 07/20 d/t depression and wanting to . Pt is eating an estimated 70% of meals since admit date (x4 days) Per Meal/Nutrition Activity Record. Dietary is currently providing an estimated 2500 kcals and 120 gm Pro, per Pt PO intake this is providing an estimated 1750 kcals and 84gm Pro to meet 83 % kcal and 100% Pro needs- adequate. Will continue to monitor PO intake. Visited pt in room, pt was awake but did not answer when I introduced myself. Pt just looked down and shut his eyes when I spoke with him, did not respond. Recommending CCHO diet to help control BG levels d/t Hx DM and labs (07/14) POC Glucose 115, A1c 5.7%. Anthropometrics HT: 65 WT: 184 LB (83.64 kg) BMI: 21.84 (normal) GI/ Skin Integrity GI: WNL, Soft, Non-tender, Flat BM: 07/15 x1 I/O: 1440/Not Noted Skin: WNL, Intact Natalio: 21 Diet Order: Regular Estimated Energy Needs: ( Geriatric, CBW) 9027-0111 kcals (25-30 kcals/ kg) 85-100g Pro (1.0-1.2 g/kg) 7616-2311 ml (25-30 ml/kg) Current Diet Order/ Nutrition Support Regular Pertinent Medications Maalox (PRN), Colace, Imodium (PRN), MOM (PRN), Protonix, Flomax Pertinent Labs 07/14: A1C 5.7%, HDL 42, Alb 3. 7 07/14: POC Glucose 115 Nutritional Hx/Data Height 1.96 m Height (Calculated Centimeters) 195.6 Current Weight (lbs) 83.461 kg Weight (Calculated Kilograms) 83.5 Weight (Calculated Grams) 73659.0 [place] Body Weight 208 LB (94.55 kg) % [place] Body Weight 88 Body Mass Index (BMI) 21.8 Weight Status Approriate GI Symptoms Last BM 07/15 x1 Skin Integrity/Comment: Skin: WNL, Intact Natalio: 21 Estimated Nutritional Goals BEE in Kcals: Using Current wt Calories/Kcals/Kg 25-30 Kcals Calculated 5142-8260 Protein: Using Current wt Protein g/k.0-1.2 Protein Calculated 85-100 Fluid: ml 4514-6796 ml (25-30 ml/kg) Nutritional Problem 1. Problem Problem Impaired nutrient utilization Etiology r/t endocrine dysfunction Signs/Symptoms: aeb Hx DM, labs (07/14) POC Glucose 115, A1C 5.7%. Malnutrition Related to Morbid Obesity Malnutrition related to morbid obesity No Intervention/Recommendation Comments Recommend [facility] diet. Expected Outcomes/Goals Expected Outcomes/Goals 1.PO intake to meet 75% of estimated nutritional needs. 2.Monitor PO intake, wt, nutrition related labs, and skin integrity. 3.F/U as low risk in 7-10 days , 07/26-07/29.
--- NOTE | 2019-07-25 22:59 | Progress Notes ---
DATE: 07/25/2019 PSYCHIATRIC PROGRESS NOTE SUBJECTIVE: Staff was spoken to. The patient is interviewed. Mood is noted to be irritable. Affect is constricted. Insight and judgment are noted to be still impaired. Impulse control is noted to be limited. The patient is stating that he was shaken that he has been having thoughts of hurting others. The patient's coping skills are noted to be extremely poor. The patient is stating between 1 and 5, he has been having lot of problems and he states he wants more medications. The patient is currently on Benadryl, Ativan, and Seroquel and Depakote, but still the patient is stating that he has been feeling depressed and has been having thoughts of hurting himself. The patient is not able to contract for safety. Coping skills are noted to be still poor. Insight and judgment are noted to be still impaired. ASSESSMENT: The patient is still impulsive and suicidal. PLAN: To continue the patient with the current medications and followup. [facility]# [id number]
[2019-07-26] MEDS: Pantoprazole 40 mg EC Tab PO SCH (09:35)
--- NOTE | 2019-07-26 12:38 | Progress Notes ---
DATE: 07/25/2019 PSYCHOLOGY PROGRESS NOTE SUBJECTIVE: The patient is seen in his room. The patient is in bed and somnolent, but arousable verbally. Case has been discussed with staff. The patient presents as easily irritated. The patient continued to report that he is having problems with pain in his left arm and shoulder and is requesting more medication. The patient continues to state that he feels depressed and has been having thoughts of hurting himself. Staff reports the patient is medication seeking constantly and then is withdrawn and isolative in his room. OBJECTIVE: Mood is depressed. Affect is constricted. Thought process is depressogenic with perseveration on medication. The patient endorsed and admits having thoughts of harming himself. The patient is not threatening to harm himself at this point. The patient denied any auditory hallucinations either command or persecutory type. The patient's behavior is withdrawn and isolative. Staff reports he continues to demand more medication and is not participating in the milieu therapy. ASSESSMENT: The patient's impulse control continues to be poor and passive suicidal ideation also persists. TREATMENT PLAN: The patient was provided suicide prevention and is encouraged to discuss any suicidal thoughts with staff. We encouraged the patient to verbally contract for safety. The patient was unable to do so. We provided remotivation for the patient to comply with his treatment and to get out of bed and attend milieu therapy. We provided education regarding medication and its limits and purpose. The attending psychiatrist has also provided this information with the patient. The patient refuses to accept these limitations. We provided encouragement for the patient to verbalize his concerns and we will continue to provide daily opportunities for the patient to verbally contract for safety. We provided reflective listening as well as insight oriented therapy to reduce the patient's depression. We will continue to provide coping strategies for phase of life issues as well. We will follow up in 2-3 days to continue the present treatment if the patient remains on the unit and is able to demonstrate the capacity to benefit from psychology services. Reassessment for medical necessity for continued psychology services will be performed on the next visit. JOB# [id number] PHYLICIA
--- NOTE | 2019-07-26 14:59 | Internal Medicine Prog Note ---
Internal Medicine Subjective - Subjective Service Date: 07/26/19 Patient seen and examined:: without staff Patient is:: awake, verbal, interactive, ambulating Internal Medicine Objective - Results Recent Labs: Laboratory Last Values POC Glucose 115 MG/DL (70 - 105) H 07/15/19 19:59 - Physical Exam Vitals and I&O: Vital Signs Temp 99.3 F 07/26/19 14:00 Pulse 99 07/26/19 14:00 Resp 20 07/26/19 14:00 BP 121/86 07/26/19 14:00 Pulse Ox 94 07/26/19 14:00 Intake & Output 07/25/19 07/26/19 07/26/19 18:59 06:59 18:59 Intake Total 1200 360 Balance 1200 360 Intake: Oral 1200 360 Other: # Voids 4 2 # Bowel Movements 1 0 Active Medications: Current Medications Acetaminophen (Tylenol) 650 mg PO Q4H PRN PRN Reason: Pain (Mild 1-3) Stop: 09/13/19 22:23 Last Admin: 07/23/19 13:19 Dose: 650 mg Acetaminophen (Tylenol) 650 mg PO Q4H PRN PRN Reason: Fever T Above 100 Stop: 09/13/19 22:23 Hydrocodone Bitart/Acetaminophen ([place] 10 Mg/325 Mg) 1 tab PO Q4H PRN PRN Reason: Moderate to Severe Pain (4-10) Stop: 09/13/19 23:17 Last Admin: 07/24/19 11:49 Dose: 1 tab Al Hydrox/Mg Hydrox/Simethicone (Maalox) 30 ml PO Q4HR PRN PRN Reason: GI DISTRESS Stop: 09/13/19 22:23 Last Admin: 07/17/19 12:00 Dose: 30 ml Diphenhydramine HCl (Benadryl) 50 mg PO Q6HR PRN PRN Reason: Agitation Stop: 09/13/19 22:47 Last Admin: 07/24/19 11:15 Dose: 50 mg Divalproex Sodium (Depakote Dr) 125 mg PO Q12HR [facility]; Protocol Stop: 09/19/19 08:59 Last Admin: 07/26/19 09:35 Dose: 125 mg Docusate Sodium (Colace) 100 mg PO DAILY [facility] Stop: 09/14/19 08:59 Last Admin: 07/26/19 09:35 Dose: 100 mg Escitalopram Oxalate (Lexapro) 20 mg PO DAILY [facility]; Protocol Stop: 09/14/19 08:59 Last Admin: 07/26/19 09:35 Dose: 20 mg Levofloxacin (Levaquin) 500 mg PO DAILY [facility] Stop: 07/27/19 08:59 Last Admin: 07/26/19 09:34 Dose: 500 mg Lisinopril (Zestril) 20 mg PO DAILY [facility] Stop: 09/14/19 08:59 Last Admin: 07/26/19 09:35 Dose: 20 mg Loperamide HCl (Imodium) 2 mg PO Q8HR PRN PRN Reason: Diarrhea Stop: 09/13/19 22:38 Last Admin: 07/17/19 18:54 Dose: 2 mg Lorazepam (Ativan) 0.5 mg PO Q6HR PRN; Protocol PRN Reason: anxiety Stop: 09/17/19 17:02 Last Admin: 07/26/19 11:18 Dose: 0.5 mg Magnesium Hydroxide (Milk Of Magnesia) 30 ml PO HS PRN PRN Reason: Constipation Pantoprazole Sodium (Protonix) 40 mg PO DAILY [facility] Stop: 09/14/19 08:59 Last Admin: 07/26/19 09:35 Dose: 40 mg Quetiapine Fumarate (Seroquel) 100 mg PO HS [facility] Stop: 09/14/19 20:59 Last Admin: 07/25/19 20:36 Dose: 100 mg Quetiapine Fumarate (Seroquel) 25 mg PO DAILY [facility]; Protocol Stop: 09/19/19 08:59 Last Admin: 07/26/19 09:35 Dose: 25 mg Tamsulosin HCl (Flomax) 0.4 mg PO DAILY [facility] Stop: 09/15/19 08:59 Last Admin: 07/26/19 09:34 Dose: 0.4 mg Zolpidem Tartrate (Ambien) 5 mg PO HS PRN PRN Reason: Insomnia Stop: 09/13/19 22:23 Last Admin: 07/25/19 20:36 Dose: 5 mg General: alert HEENT: NC/AT Neck: Supple, No JVD Lungs: CTAB Cardiovascular: RRR, Normal S1, Normal S2 Abdomen: soft Extremities: clear - Procedures Procedures: Procedures Procedure Code Date OTHER GROUP THERAPY 94.44 12/31/12 Internal Medicine Assmt/Plan - Assessment Assessment: 1. DM/HTN 2. GERD 3. ANXIETY 4. BIPOLAR 5. UTI - Plan Plan: continue levaquin for uti BP is controlled on lisinopril d/w r.n. Nutritional Asmnt/Malnutr-PDOC - Dietary Evaluation Malnutrition Findings (Please click <Entered> for more info): Nutritional Asmnt/Malnutrition Start: 07/20/19 14: 19 Text: Status: Complete Freq: Protocol: Document 07/20/19 14:19 SHERRYJOON (Rec: 07/20/19 14:21 [id number]) Nutritional Asmnt/Malnutrition Patient General Information Nutritional Screening Low Risk Diagnosis Psychosis Pertinent Medical Hx/Surgical Hx DM, GERD, Anxiety, Depression, Bipolar disorder, HTN, Schwannoma Subjective Information Pt is a 78-year-old male admitted on 07/20 d/t depression and wanting to . Pt is eating an estimated 70% of meals since admit date (x4 days) Per Meal/Nutrition Activity Record. Dietary is currently providing an estimated 2500 kcals and 120 gm Pro, per Pt PO intake this is providing an estimated 1750 kcals and 84gm Pro to meet 83 % kcal and 100% Pro needs- adequate. Will continue to monitor PO intake. Visited pt in room, pt was awake but did not answer when I introduced myself. Pt just looked down and shut his eyes when I spoke with him, did not respond. Recommending CCHO diet to help control BG levels d/t Hx DM and labs (07/14) POC Glucose 115, A1c 5.7%. Anthropometrics HT: 65 WT: 184 LB (83.64 kg) BMI: 21.84 (normal) GI/ Skin Integrity GI: WNL, Soft, Non-tender, Flat BM: 07/15 x1 I/O: 1440/Not Noted Skin: WNL, Intact Natalio: 21 Diet Order: Regular Estimated Energy Needs: ( Geriatric, CBW) 1106-1767 kcals (25-30 kcals/ kg) 85-100g Pro (1.0-1.2 g/kg) 2459-3540 ml (25-30 ml/kg) Current Diet Order/ Nutrition Support Regular Pertinent Medications Maalox (PRN), Colace, Imodium (PRN), MOM (PRN), Protonix, Flomax Pertinent Labs 07/14: A1C 5.7%, HDL 42, Alb 3. 7 07/14: POC Glucose 115 Nutritional Hx/Data Height 1.96 m Height (Calculated Centimeters) 195.6 Current Weight (lbs) 83.461 kg Weight (Calculated Kilograms) 83.5 Weight (Calculated Grams) 12767.0 [place] Body Weight 208 LB (94.55 kg) % [place] Body Weight 88 Body Mass Index (BMI) 21.8 Weight Status Approriate GI Symptoms Last BM 07/15 x1 Skin Integrity/Comment: Skin: WNL, Intact Natalio: 21 Estimated Nutritional Goals BEE in Kcals: Using Current wt Calories/Kcals/Kg 25-30 Kcals Calculated 2061-2682 Protein: Using Current wt Protein g/k.0-1.2 Protein Calculated 85-100 Fluid: ml 4150-2446 ml (25-30 ml/kg) Nutritional Problem 1. Problem Problem Impaired nutrient utilization Etiology r/t endocrine dysfunction Signs/Symptoms: aeb Hx DM, labs (07/14) POC Glucose 115, A1C 5.7%. Malnutrition Related to Morbid Obesity Malnutrition related to morbid obesity No Intervention/Recommendation Comments Recommend [facility] diet. Expected Outcomes/Goals Expected Outcomes/Goals 1.PO intake to meet 75% of estimated nutritional needs. 2.Monitor PO intake, wt, nutrition related labs, and skin integrity. 3.F/U as low risk in 7-10 days , 07/26-07/29.
--- NOTE | 2019-07-26 17:48 | Progress Notes ---
DATE: 07/26/2019 SUBJECTIVE: Staff was spoken to. The patient is interviewed. Mood is noted to be less irritable. The patient is isolative and withdrawn. The patient is drowsy today. Insight and judgment at this time are noted to be still impaired. Impulse control seems to be improving. The patient's aggressive behavior seems to be coming under control. manager bakery has been spoken to and they are going to be communicating with [facility] with regards to the patient being returned over there. Currently, the patient is on the valproic acid 125 mg twice a day, Lexapro 20 mg in the morning and he is also getting the Seroquel 100 mg at bedtime and 25 mg in the morning. ASSESSMENT: The patient's impulsivity is coming under control. PLAN: To continue the patient with the current medications and followup. JOB# [id number]
[2019-07-27] MEDS: Pantoprazole 40 mg EC Tab PO SCH (08:51)
--- NOTE | 2019-07-27 11:07 | Progress Notes ---
DATE: 07/27/2019 PSYCHIATRIC PROGRESS NOTE SUBJECTIVE: Staff was spoken to. The patient is interviewed. Mood is noted to be depressed. Affect is constricted. The patient is isolative and withdrawn, but is not presenting with any suicidal or homicidal ideations today. The patient's coping skills at this time are noted to be improving. No side effects to the medications are noted. The patient has been willing to comply participate in the groups. The patient's major concern seems to be mainly the pain concerns. The patient is stating that he has been having problem with the insomnia. The patient is already on zolpidem and Seroquel. No major side effects to the medications are noted. ASSESSMENT: The patient is still depressed. PLAN: To continue the patient with the Seroquel and Lexapro and follow the patient. JOB# [id number]
--- NOTE | 2019-07-27 13:56 | Internal Medicine Prog Note ---
Internal Medicine Subjective - Subjective Service Date: 07/27/19 Patient seen and examined:: without staff Patient is:: awake, verbal, interactive, ambulating Internal Medicine Objective - Results Recent Labs: Laboratory Last Values POC Glucose 115 MG/DL (70 - 105) H 07/15/19 19:59 - Physical Exam Vitals and I&O: Vital Signs Temp 98.9 F 07/27/19 06:20 Pulse 103 07/27/19 09:06 Resp 16 07/27/19 08:00 BP 110/57 07/27/19 09:06 Pulse Ox 98 07/27/19 06:20 Intake & Output 07/26/19 07/27/19 07/27/19 18:59 06:59 18:59 Intake Total 1200 120 Balance 1200 120 Intake: Oral 1080 120 Other 120 Other: # Voids 4 3 # Bowel Movements 0 0 Active Medications: Current Medications Acetaminophen (Tylenol) 650 mg PO Q4H PRN PRN Reason: Pain (Mild 1-3) Stop: 09/13/19 22:23 Last Admin: 07/23/19 13:19 Dose: 650 mg Acetaminophen (Tylenol) 650 mg PO Q4H PRN PRN Reason: Fever T Above 100 Stop: 09/13/19 22:23 Hydrocodone Bitart/Acetaminophen ([place] 10 Mg/325 Mg) 1 tab PO Q4H PRN PRN Reason: Moderate to Severe Pain (4-10) Stop: 09/13/19 23:17 Last Admin: 07/24/19 11:49 Dose: 1 tab Al Hydrox/Mg Hydrox/Simethicone (Maalox) 30 ml PO Q4HR PRN PRN Reason: GI DISTRESS Stop: 09/13/19 22:23 Last Admin: 07/17/19 12:00 Dose: 30 ml Diphenhydramine HCl (Benadryl) 50 mg PO Q6HR PRN PRN Reason: Agitation Stop: 09/13/19 22:47 Last Admin: 07/27/19 00:07 Dose: 50 mg Divalproex Sodium (Depakote Dr) 125 mg PO Q12HR YASSINE; Protocol Stop: 09/19/19 08:59 Last Admin: 07/27/19 08:52 Dose: 125 mg Docusate Sodium (Colace) 100 mg PO DAILY [facility] Stop: 06/24/20 08:59 Last Admin: 07/27/19 08:51 Dose: 100 mg Escitalopram Oxalate (Lexapro) 20 mg PO DAILY [facility]; Protocol Stop: 09/14/19 08:59 Last Admin: 07/27/19 08:52 Dose: 20 mg Lisinopril (Zestril) 20 mg PO DAILY [facility] Stop: 09/14/19 08:59 Last Admin: 07/27/19 09:06 Dose: 20 mg Loperamide HCl (Imodium) 2 mg PO Q8HR PRN PRN Reason: Diarrhea Stop: 09/13/19 22:38 Last Admin: 07/17/19 18:54 Dose: 2 mg Lorazepam (Ativan) 0.5 mg PO Q6HR PRN; Protocol PRN Reason: anxiety Stop: 09/17/19 17:02 Last Admin: 07/26/19 20:13 Dose: 0.5 mg Magnesium Hydroxide (Milk Of Magnesia) 30 ml PO HS PRN PRN Reason: Constipation Pantoprazole Sodium (Protonix) 40 mg PO DAILY [facility] Stop: 09/14/19 08:59 Last Admin: 07/27/19 08:51 Dose: 40 mg Quetiapine Fumarate (Seroquel) 100 mg PO HS [facility] Stop: 09/14/19 20:59 Last Admin: 07/26/19 20:13 Dose: 100 mg Quetiapine Fumarate (Seroquel) 25 mg PO DAILY [facility]; Protocol Stop: 09/19/19 08:59 Last Admin: 07/27/19 08:52 Dose: 25 mg Tamsulosin HCl (Flomax) 0.4 mg PO DAILY [facility] Stop: 09/15/19 08:59 Last Admin: 07/27/19 08:52 Dose: 0.4 mg Zolpidem Tartrate (Ambien) 5 mg PO HS PRN PRN Reason: Insomnia Stop: 09/13/19 22:23 Last Admin: 07/26/19 20:13 Dose: 5 mg General: alert HEENT: NC/AT Neck: Supple, No JVD Lungs: CTAB Cardiovascular: RRR, Normal S1, Normal S2 Abdomen: soft Extremities: clear - Procedures Procedures: Procedures Procedure Code Date OTHER GROUP THERAPY 94.44 12/31/12 Internal Medicine Assmt/Plan - Assessment Assessment: 1. DM/HTN 2. GERD 3. ANXIETY 4. BIPOLAR 5. UTI 6. Depression - Plan Plan: continue levaquin for uti BP is controlled on lisinopril d/w r.n. Nutritional Asmnt/Malnutr-PDOC - Dietary Evaluation Malnutrition Findings (Please click <Entered> for more info): Nutritional Asmnt/Malnutrition Start: 07/20/19 14: 19 Text: Status: Complete Freq: Protocol: Document 07/20/19 14:19 SEBASTIEN (Rec: 07/20/19 14:21 SEBASTIEN [id number]) Nutritional Asmnt/Malnutrition Patient General Information Nutritional Screening Low Risk Diagnosis Psychosis Pertinent Medical Hx/Surgical Hx DM, GERD, Anxiety, Depression, Bipolar disorder, HTN, Schwannoma Subjective Information Pt is a 78-year-old male admitted on 07/20 d/t depression and wanting to . Pt is eating an estimated 70% of meals since admit date (x4 days) Per Meal/Nutrition Activity Record. Dietary is currently providing an estimated 2500 kcals and 120 gm Pro, per Pt PO intake this is providing an estimated 1750 kcals and 84gm Pro to meet 83 % kcal and 100% Pro needs- adequate. Will continue to monitor PO intake. Visited pt in room, pt was awake but did not answer when I introduced myself. Pt just looked down and shut his eyes when I spoke with him, did not respond. Recommending CCHO diet to help control BG levels d/t Hx DM and labs (07/14) POC Glucose 115, A1c 5.7%. Anthropometrics HT: 65 WT: 184 LB (83.64 kg) BMI: 21.84 (normal) GI/ Skin Integrity GI: WNL, Soft, Non-tender, Flat BM: 07/15 x1 I/O: 1440/Not Noted Skin: WNL, Intact Natalio: 21 Diet Order: Regular Estimated Energy Needs: ( Geriatric, CBW) 6651-3171 kcals (25-30 kcals/ kg) 85-100g Pro (1.0-1.2 g/kg) 2810-9753 ml (25-30 ml/kg) Current Diet Order/ Nutrition Support Regular Pertinent Medications Maalox (PRN), Colace, Imodium (PRN), MOM (PRN), Protonix, Flomax Pertinent Labs 07/14: A1C 5.7%, HDL 42, Alb 3. 7 07/14: POC Glucose 115 Nutritional Hx/Data Height 1.96 m Height (Calculated Centimeters) 195.6 Current Weight (lbs) 83.461 kg Weight (Calculated Kilograms) 83.5 Weight (Calculated Grams) 87177.0 [place] Body Weight 208 LB (94.55 kg) % [place] Body Weight 88 Body Mass Index (BMI) 21.8 Weight Status Approriate GI Symptoms Last BM 07/15 x1 Skin Integrity/Comment: Skin: WNL, Intact Natalio: 21 Estimated Nutritional Goals BEE in Kcals: Using Current wt Calories/Kcals/Kg 25-30 Kcals Calculated 9971-7955 Protein: Using Current wt Protein g/k.0-1.2 Protein Calculated 85-100 Fluid: ml 4653-8565 ml (25-30 ml/kg) Nutritional Problem 1. Problem Problem Impaired nutrient utilization Etiology r/t endocrine dysfunction Signs/Symptoms: aeb Hx DM, labs (07/14) POC Glucose 115, A1C 5.7%. Malnutrition Related to Morbid Obesity Malnutrition related to morbid obesity No Intervention/Recommendation Comments Recommend [facility] diet. Expected Outcomes/Goals Expected Outcomes/Goals 1.PO intake to meet 75% of estimated nutritional needs. 2.Monitor PO intake, wt, nutrition related labs, and skin integrity. 3.F/U as low risk in 7-10 days , 07/26-07/29.
[2019-07-28] MEDS: Pantoprazole 40 mg EC Tab PO SCH (09:45)
[2019-07-28] MEDS ORDERED: Haldol Oral Sol.(concentrate) 10 mg/5 mL Udc PO ONE (11:43)
--- NOTE | 2019-07-28 11:59 | Progress Notes ---
DATE: 07/27/2019 PSYCHOLOGY PROGRESS NOTE SUBJECTIVE: The patient is seen in his room and is interviewed. Case is discussed with staff. The patient continues to be withdrawn and isolative. Staff reports the patient has become more compliant with medication and is not asking for more Ativan or more pain medication at this time. Apparently, his medication seeking behavior is coming under control. The patient continued to state that he is not sleeping well. The patient was reminded that he sleeps all day long and this is why he does not sleep well in the evening. He said he is still depressed, but denied wanting to harm himself. OBJECTIVE: Mood is dysphoric. Affect is constricted. Thought process shows to be linear and concrete. The patient denied any suicidal thought. The patient was able to verbally contract for safety. The patient denied any hallucinations or delusions; however, the patient continues to be depressed. The patient's behavior is withdrawn and isolative. Staff reports the patient has attended some milieu therapy. ASSESSMENT: The patient's depression persists. PLAN: We provided coping strategies for phase of life issues. We encouraged the patient to stay compliant with his care and treatment plan with acceptance of the medication as it is provided. We encouraged the patient to verbalize any self-harm thoughts to the staff. We reviewed suicide prevention, i.e., safety measures. The patient was able to verbally contract for safety. We will follow up in 2-3 days if the patient remains on the unit to continue the present treatment and monitor closely for safety. JOB# [id number] PHYLICIA
[2019-07-28] MEDS ORDERED: Haldol Oral Sol.(concentrate) 10 mg/5 mL Udc PO SCH (17:00)
--- NOTE | 2019-07-28 22:34 | Progress Notes ---
DATE: 07/28/2019 SUBJECTIVE: Staff was spoken to. The patient is interviewed. Mood is noted to be irritable. Affect is constricted. The patient is verbally abusive, has been screaming and yelling and is stating that he has been having thoughts of hurting others and the patient has no insight into his illness. The patient is stating that the medication that we are giving is not enough and the patient has been getting out of control and hence has been ordered 2 mg of Haldol with 25 mg of Benadryl. If the patient is refusing to take medications by mouth, I have decided to give the medication by injection. ASSESSMENT: The patient is out of control and impulsive. PLAN: To start the patient with the Haldol and I encouraged the patient to verbalize the concerns. The patient's Seroquel is going to be gradually discontinued. JOB# [id number]
[2019-07-29] MEDS: Pantoprazole 40 mg EC Tab PO SCH (09:06)
--- NOTE | 2019-07-29 09:59 | Progress Notes ---
DATE: 07/29/2019 SUBJECTIVE: Staff was spoken to. The patient is interviewed. Mood is noted to be irritable. Affect is constricted. Insight and judgment are noted to be still impaired. Impulse control is noted to be limited. The patient is threatening to hurt others. The patient is stating that "there is too much of the interval between the medications and he states that he could not feed it out what he could do to deal with the anxiety." The patient has been constantly complaining that he has been anxious and no one is doing anything about it. The patient's blood pressure has been dropping down when he is taking too much of the medications and we have been closely monitoring the blood pressure. The patient has been taking more and more of medication. Insight and judgment are noted to be very much impaired. Impulse control is noted to be limited. The patient has been stating that whether he is suicidal or homicidal. The patient is not ready to be discharged to a lower level of care. I am raising the dose on the ____ valproic acid 250 mg twice a day and haloperidol to 5 mg twice a day and quetiapine has been discontinued. The patient is going to be closely monitored. Encouraged to participate in the groups and verbalize the concerns. JOB# [id number]
--- NOTE | 2019-07-29 12:20 | Internal Medicine Prog Note ---
Internal Medicine Subjective - Subjective Service Date: 07/29/19 Patient is:: awake, verbal, interactive, ambulating Internal Medicine Objective - Results Recent Labs: Laboratory Last Values POC Glucose 115 MG/DL (70 - 105) H 07/15/19 19:59 - Physical Exam Vitals and I&O: Vital Signs Temp 97.7 F 07/29/19 06:26 Pulse 80 07/29/19 10:07 Resp 19 07/29/19 06:26 BP 109/75 07/29/19 10:07 Pulse Ox 97 07/29/19 06:26 Intake & Output 07/28/19 07/29/19 07/29/19 18:59 06:59 18:59 Intake Total 900 120 Balance 900 120 Intake: Oral 900 120 Other: # Voids 3 3 # Bowel Movements 0 Active Medications: Current Medications Acetaminophen (Tylenol) 650 mg PO Q4H PRN PRN Reason: Pain (Mild 1-3) Stop: 09/13/19 22:23 Last Admin: 07/29/19 01:02 Dose: 650 mg Acetaminophen (Tylenol) 650 mg PO Q4H PRN PRN Reason: Fever T Above 100 Stop: 09/13/19 22:23 Hydrocodone Bitart/Acetaminophen ([place] 10 Mg/325 Mg) 1 tab PO Q4H PRN PRN Reason: Moderate to Severe Pain (4-10) Stop: 09/13/19 23:17 Last Admin: 07/24/19 11:49 Dose: 1 tab Al Hydrox/Mg Hydrox/Simethicone (Maalox) 30 ml PO Q4HR PRN PRN Reason: GI DISTRESS Stop: 09/13/19 22:23 Last Admin: 07/17/19 12:00 Dose: 30 ml Diphenhydramine HCl (Benadryl) 50 mg PO Q6HR PRN PRN Reason: Agitation Stop: 09/13/19 22:47 Last Admin: 07/29/19 01:01 Dose: 50 mg Divalproex Sodium (Depakote Dr) 250 mg PO Q12HR [facility]; Protocol Stop: 09/27/19 08:59 Last Admin: 07/29/19 10:54 Dose: 250 mg Docusate Sodium (Colace) 100 mg PO DAILY [facility] Stop: 09/14/19 08:59 Last Admin: 05/08/20 09:06 Dose: 100 mg Escitalopram Oxalate (Lexapro) 20 mg PO DAILY [facility]; Protocol Stop: 09/14/19 08:59 Last Admin: 07/29/19 09:06 Dose: 20 mg Haloperidol Lactate (Haldol Concentrate 10mg/5ml Susp) 5 mg PO BID [facility]; Protocol Stop: 09/27/19 16:59 Lisinopril (Zestril) 20 mg PO DAILY [facility] Stop: 09/14/19 08:59 Last Admin: 07/29/19 09:06 Dose: 20 mg Loperamide HCl (Imodium) 2 mg PO Q8HR PRN PRN Reason: Diarrhea Stop: 09/13/19 22:38 Last Admin: 07/27/19 14:25 Dose: 2 mg Lorazepam (Ativan) 0.5 mg PO Q6HR PRN; Protocol PRN Reason: anxiety Stop: 09/17/19 17:02 Last Admin: 07/29/19 09:08 Dose: 0.5 mg Magnesium Hydroxide (Milk Of Magnesia) 30 ml PO HS PRN PRN Reason: Constipation Pantoprazole Sodium (Protonix) 40 mg PO DAILY [facility] Stop: 09/14/19 08:59 Last Admin: 07/29/19 09:06 Dose: 40 mg Tamsulosin HCl (Flomax) 0.4 mg PO DAILY [facility] Stop: 09/15/19 08:59 Last Admin: 07/29/19 09:06 Dose: 0.4 mg Zolpidem Tartrate (Ambien) 5 mg PO HS PRN PRN Reason: Insomnia Stop: 09/13/19 22:23 Last Admin: 07/28/19 21:43 Dose: 5 mg General: alert HEENT: NC/AT Neck: Supple, No JVD Lungs: CTAB Cardiovascular: RRR, Normal S1, Normal S2 Abdomen: soft Extremities: clear - Procedures Procedures: Procedures Procedure Code Date OTHER GROUP THERAPY 94.44 12/31/12 Internal Medicine Assmt/Plan - Assessment Assessment: 1. DM/HTN 2. GERD 3. ANXIETY 4. BIPOLAR 5. UTI 6. Depression - Plan Plan: continue levaquin for uti BP is controlled on lisinopril d/w r.n. Nutritional Asmnt/Malnutr-PDOC - Dietary Evaluation Malnutrition Findings (Please click <Entered> for more info): Nutritional Asmnt/Malnutrition Start: 07/20/19 14: 19 Text: Status: Complete Freq: Protocol: Document 07/20/19 14:19 SEBASTIEN (Rec: 07/20/19 14:21 SEBASTIEN [id number]) Nutritional Asmnt/Malnutrition Patient General Information Nutritional Screening Low Risk Diagnosis Psychosis Pertinent Medical Hx/Surgical Hx DM, GERD, Anxiety, Depression, Bipolar disorder, HTN, Schwannoma Subjective Information Pt is a 78-year-old male admitted on 07/20 d/t depression and wanting to . Pt is eating an estimated 70% of meals since admit date (x4 days) Per Meal/Nutrition Activity Record. Dietary is currently providing an estimated 2500 kcals and 120 gm Pro, per Pt PO intake this is providing an estimated 1750 kcals and 84gm Pro to meet 83 % kcal and 100% Pro needs- adequate. Will continue to monitor PO intake. Visited pt in room, pt was awake but did not answer when I introduced myself. Pt just looked down and shut his eyes when I spoke with him, did not respond. Recommending CCHO diet to help control BG levels d/t Hx DM and labs (07/14) POC Glucose 115, A1c 5.7%. Anthropometrics HT: 65 WT: 184 LB (83.64 kg) BMI: 21.84 (normal) GI/ Skin Integrity GI: WNL, Soft, Non-tender, Flat BM: 07/15 x1 I/O: 1440/Not Noted Skin: WNL, Intact Natalio: 21 Diet Order: Regular Estimated Energy Needs: ( Geriatric, CBW) 3912-6534 kcals (25-30 kcals/ kg) 85-100g Pro (1.0-1.2 g/kg) 0559-4153 ml (25-30 ml/kg) Current Diet Order/ Nutrition Support Regular Pertinent Medications Maalox (PRN), Colace, Imodium (PRN), MOM (PRN), Protonix, Flomax Pertinent Labs 07/14: A1C 5.7%, HDL 42, Alb 3. 7 07/14: POC Glucose 115 Nutritional Hx/Data Height 1.96 m Height (Calculated Centimeters) 195.6 Current Weight (lbs) 83.461 kg Weight (Calculated Kilograms) 83.5 Weight (Calculated Grams) 45698.0 [place] Body Weight 208 LB (94.55 kg) % [place] Body Weight 88 Body Mass Index (BMI) 21.8 Weight Status Approriate GI Symptoms Last BM 07/15 x1 Skin Integrity/Comment: Skin: WNL, Intact Natalio: 21 Estimated Nutritional Goals BEE in Kcals: Using Current wt Calories/Kcals/Kg 25-30 Kcals Calculated 1099-7021 Protein: Using Current wt Protein g/k.0-1.2 Protein Calculated 85-100 Fluid: ml 0201-3340 ml (25-30 ml/kg) Nutritional Problem 1. Problem Problem Impaired nutrient utilization Etiology r/t endocrine dysfunction Signs/Symptoms: aeb Hx DM, labs (07/14) POC Glucose 115, A1C 5.7%. Malnutrition Related to Morbid Obesity Malnutrition related to morbid obesity No Intervention/Recommendation Comments Recommend CCHO diet. Expected Outcomes/Goals Expected Outcomes/Goals 1.PO intake to meet 75% of estimated nutritional needs. 2.Monitor PO intake, wt, nutrition related labs, and skin integrity. 3.F/U as low risk in 7-10 days , 07/26-07/29.
[2019-07-29] MEDS ORDERED: Hydrocodone/APAP 10 mg/325 mg Tab PO PRN (15:54)
[2019-07-29] MEDS: Haldol Oral Sol.(concentrate) 10 mg/5 mL Udc PO SCH (16:57)
[2019-07-30] MEDS: Pantoprazole 40 mg EC Tab PO SCH (08:49)
[2019-07-30] MEDS: Haldol Oral Sol.(concentrate) 10 mg/5 mL Udc PO SCH ×2 (08:51→16:17)
--- NOTE | 2019-07-30 10:01 | Progress Notes ---
DATE: 07/30/2019 SUBJECTIVE: Staff was spoken to. The patient is interviewed. Mood is noted to be irritable. Affect is constricted. Insight and judgment are noted to be still impaired. Impulse control is noted to be limited. The patient is reporting that he has been having thoughts of hurting others and the patient has been going off on the staff, cursing them. The patient has been placed on Depakote that he has been gradually increased to 250 mg twice a day and still it is not working and hence I am increasing it to 500 mg twice a day and the patient is going to be closely monitored. I encouraged to verbalize the concerns. Initially, when the patient got into the hospital his main concern was being depressed and being suicidal, now he has been getting into these thoughts of hurting himself. The patient's coping skills at this time are noted to be very poor. The patient has been asking for more and more of the pain medications more and more of the Ativan. ASSESSMENT: The patient is still impulsive. PLAN: To continue the patient with the current medications. I encouraged the patient to verbalize the concerns rather than to act out. [facility]# [id number]
--- NOTE | 2019-07-30 20:33 | Progress Notes ---
DATE: 07/30/2019 PSYCHOLOGY PROGRESS NOTE SUBJECTIVE: The patient is seen in his room. The patient is sitting at the edge of his bed in front of his lunch tray. The patient is declining to eat and stating he is not hungry. Staff reports the patient has returned to his previous behavior, i.e., medication seeking, especially pain medication. The patient has reported to the staff that he has thoughts of hurting others. Staff reports also the patient has had episodes of anger outbursts with profanity. The patient admits that he has passive ideas of hurting himself. The patient is exhibiting tremulousness in both arms. Nursing is informed. OBJECTIVE: Mood is severely depressed and irritable. Affect is sullen and labile. Thought process includes suicidal and homicidal ideation with no specific plan or specific intention. The patient presents as manipulative in that he is medication seeking and requesting more Ativan and more opioid analgesics. The patient is being closely monitored. The patient continues to be withdrawn and isolative as well as argumentative and confused. ASSESSMENT: The patient's impulse control is poor. The patient's depression persists. The patient's noncompliance with treatment also continues. PLAN: Staff reports the patient was eligible to discharge yesterday; however, the patient is not ready to be released to a lower level of care. The patient continues to state that he is anxious and that no one is treating his anxiety and therefore he is requesting more Ativan. It was explained to the patient on multiple occasions by staff as well as by all other healthcare providers about the limitations of using anxiolytic medications and the federal laws and regulations regarding the amount in a 24-hour period. The patient continues to refuse to accept these explanations. Insight and judgment continues to be very much impaired. We will follow up in 2-3 days if the patient remains on the unit and if the patient is willing and capable of participating in psychology services as well as behavioral therapy. We will reevaluate and reassess the medical necessity as well as the benefit for this type of treatment on the next visit. JOB# [id number] PHYLICIA
[2019-07-31] MEDS: Haldol Oral Sol.(concentrate) 10 mg/5 mL Udc PO SCH ×2 (08:53→17:34)
[2019-07-31] MEDS: Pantoprazole 40 mg EC Tab PO SCH (08:54)
--- NOTE | 2019-07-31 22:26 | Progress Notes ---
DATE: 07/31/2019 SUBJECTIVE: Staff was spoken to. The patient is interviewed. Mood is noted to be irritable. Affect is constricted. Insight and judgment at this time are noted to be still impaired. Impulse control is noted to be limited. Coping skills are noted to be limited. The patient has been having difficult time to cope with the stress. No side effects to the medications are noted. The patient has been having difficult time to cope with the stress. The patient still wants more and more of medications at this time. The patient is stating that he cannot wait for too long for the staff to give the medication. He needs to have the medications right away. ASSESSMENT: The patient is still impulsive and suicidal and threatening to hurt the staff. PLAN: To continue the patient with the current medications and followup. JOB# [id number]
[2019-08-01] MEDS: Hydrocodone/APAP 10 mg/325 mg Tab PO PRN ×2 (07:47→15:49)
[2019-08-01] MEDS: Pantoprazole 40 mg EC Tab PO SCH (08:52)
[2019-08-01] MEDS: Haldol Oral Sol.(concentrate) 10 mg/5 mL Udc PO SCH ×2 (08:52→16:25)
--- NOTE | 2019-08-01 11:10 | Internal Medicine Prog Note ---
Internal Medicine Subjective - Subjective Service Date: 08/01/19 Patient seen and examined:: without staff Patient is:: awake, verbal, interactive, ambulating Per staff patient has:: no adverse event, no episodes of fall Internal Medicine Objective - Results Recent Labs: Laboratory Last Values POC Glucose 115 MG/DL (70 - 105) H 07/15/19 19:59 - Physical Exam Vitals and I&O: Vital Signs Temp 97.8 F 07/31/19 20:18 Pulse 91 07/31/19 20:18 Resp 20 08/01/19 07:33 BP 110/62 08/01/19 08:52 Pulse Ox 96 07/31/19 20:18 Intake & Output 07/31/19 08/01/19 08/01/19 18:59 06:59 18:59 Intake Total 520 240 Balance 520 240 Intake: Oral 520 240 Other: # Voids 1 Active Medications: Current Medications Acetaminophen (Tylenol) 650 mg PO Q4H PRN PRN Reason: Pain (Mild 1-3) Stop: 09/13/19 22:23 Last Admin: 07/29/19 01:02 Dose: 650 mg Acetaminophen (Tylenol) 650 mg PO Q4H PRN PRN Reason: Fever T Above 100 Stop: 09/13/19 22:23 Hydrocodone Bitart/Acetaminophen ([place] 10 Mg/325 Mg) 1 tab PO Q4H PRN PRN Reason: Moderate to Severe Pain (4-10) Stop: 09/13/19 23:17 Last Admin: 08/01/19 07:47 Dose: 1 tab Al Hydrox/Mg Hydrox/Simethicone (Maalox) 30 ml PO Q4HR PRN PRN Reason: GI DISTRESS Stop: 09/13/19 22:23 Last Admin: 07/17/19 12:00 Dose: 30 ml Diphenhydramine HCl (Benadryl) 50 mg PO Q6HR PRN PRN Reason: Agitation Stop: 09/13/19 22:47 Last Admin: 07/31/19 22:03 Dose: 50 mg Divalproex Sodium (Depakote Dr) 500 mg PO Q12HR [facility]; Protocol Stop: 09/28/19 20:59 Last Admin: 08/01/19 08:52 Dose: 500 mg Docusate Sodium (Colace) 100 mg PO DAILY [facility] Stop: 09/14/19 08:59 Last Admin: 08/01/19 08:52 Dose: Not Given Escitalopram Oxalate (Lexapro) 20 mg PO DAILY [facility]; Protocol Stop: 09/14/19 08:59 Last Admin: 08/01/19 08:52 Dose: 20 mg Haloperidol Lactate (Haldol Concentrate 10mg/5ml Susp) 5 mg PO BID [facility]; Protocol Stop: 09/27/19 16:59 Last Admin: 08/01/19 08:52 Dose: 5 mg Lisinopril (Zestril) 20 mg PO DAILY [facility] Stop: 09/14/19 08:59 Last Admin: 08/01/19 08:52 Dose: Not Given Loperamide HCl (Imodium) 2 mg PO Q8HR PRN PRN Reason: Diarrhea Stop: 09/13/19 22:38 Last Admin: 07/31/19 22:03 Dose: 2 mg Lorazepam (Ativan) 0.5 mg PO Q6HR PRN; Protocol PRN Reason: Anxiety Stop: 09/27/19 15:46 Last Admin: 08/01/19 03:01 Dose: 0.5 mg Magnesium Hydroxide (Milk Of Magnesia) 30 ml PO HS PRN PRN Reason: Constipation Pantoprazole Sodium (Protonix) 40 mg PO DAILY [facility] Stop: 09/14/19 08:59 Last Admin: 08/01/19 08:52 Dose: 40 mg Tamsulosin HCl (Flomax) 0.4 mg PO DAILY [facility] Stop: 09/15/19 08:59 Last Admin: 08/01/19 08:52 Dose: 0.4 mg Zolpidem Tartrate (Ambien) 5 mg PO HS PRN PRN Reason: Insomnia Stop: 09/27/19 15:51 Last Admin: 07/30/19 21:00 Dose: 5 mg General: alert HEENT: NC/AT Neck: Supple, No JVD Lungs: CTAB Cardiovascular: RRR, Normal S1, Normal S2 Abdomen: soft Extremities: clear - Procedures Procedures: Procedures Procedure Code Date OTHER GROUP THERAPY 94.44 12/31/12 Internal Medicine Assmt/Plan - Assessment Assessment: 1. DM/HTN 2. GERD 3. ANXIETY 4. BIPOLAR 5. UTI 6. Depression - Plan Plan: continue levaquin for uti BP is controlled on lisinopril discharge planning discussed with field nurse case manager d/w maryann. will transfer back to [facility] will give signout to dr. aguilera for accepting patient Nutritional Asmnt/Malnutr-PDOC - Dietary Evaluation Malnutrition Findings (Please click <Entered> for more info): Nutritional Asmnt/Malnutrition Start: 07/20/19 14: 19 Text: Status: Complete Freq: Protocol: Document 07/20/19 14:19 SEBASTIEN (Rec: 07/20/19 14:21 SEBASTIEN [id number]) Nutritional Asmnt/Malnutrition Patient General Information Nutritional Screening Low Risk Diagnosis Psychosis Pertinent Medical Hx/Surgical Hx DM, GERD, Anxiety, Depression, Bipolar disorder, HTN, Schwannoma Subjective Information Pt is a 78-year-old male admitted on 07/20 d/t depression and wanting to . Pt is eating an estimated 70% of meals since admit date (x4 days) Per Meal/Nutrition Activity Record. Dietary is currently providing an estimated 2500 kcals and 120 gm Pro, per Pt PO intake this is providing an estimated 1750 kcals and 84gm Pro to meet 83 % kcal and 100% Pro needs- adequate. Will continue to monitor PO intake. Visited pt in room, pt was awake but did not answer when I introduced myself. Pt just looked down and shut his eyes when I spoke with him, did not respond. Recommending CCHO diet to help control BG levels d/t Hx DM and labs (07/14) POC Glucose 115, A1c 5.7%. Anthropometrics HT: 65 WT: 184 LB (83.64 kg) BMI: 21.84 (normal) GI/ Skin Integrity GI: WNL, Soft, Non-tender, Flat BM: 07/15 x1 I/O: 1440/Not Noted Skin: WNL, Intact Natalio: 21 Diet Order: Regular Estimated Energy Needs: ( Geriatric, CBW) 8459-5186 kcals (25-30 kcals/ kg) 85-100g Pro (1.0-1.2 g/kg) 7978-8097 ml (25-30 ml/kg) Current Diet Order/ Nutrition Support Regular Pertinent Medications Maalox (PRN), Colace, Imodium (PRN), MOM (PRN), Protonix, Flomax Pertinent Labs 07/14: A1C 5.7%, HDL 42, Alb 3. 7 07/14: POC Glucose 115 Nutritional Hx/Data Height 1.96 m Height (Calculated Centimeters) 195.6 Current Weight (lbs) 83.461 kg Weight (Calculated Kilograms) 83.5 Weight (Calculated Grams) 68291.0 [place] Body Weight 208 LB (94.55 kg) % [place] Body Weight 88 Body Mass Index (BMI) 21.8 Weight Status Approriate GI Symptoms Last BM 07/15 x1 Skin Integrity/Comment: Skin: WNL, Intact Natalio: 21 Estimated Nutritional Goals BEE in Kcals: Using Current wt Calories/Kcals/Kg 25-30 Kcals Calculated 9576-0385 Protein: Using Current wt Protein g/k.0-1.2 Protein Calculated 85-100 Fluid: ml 5878-9595 ml (25-30 ml/kg) Nutritional Problem 1. Problem Problem Impaired nutrient utilization Etiology r/t endocrine dysfunction Signs/Symptoms: aeb Hx DM, labs (07/14) POC Glucose 115, A1C 5.7%. Malnutrition Related to Morbid Obesity Malnutrition related to morbid obesity No Intervention/Recommendation Comments Recommend [facility] diet. Expected Outcomes/Goals Expected Outcomes/Goals 1.PO intake to meet 75% of estimated nutritional needs. 2.Monitor PO intake, wt, nutrition related labs, and skin integrity. 3.F/U as low risk in 7-10 days , 07/26-07/29.
[2019-08-01] MEDS: Maalox 30 mL Cup PO PRN (12:06)
--- NOTE | 2019-08-01 20:40 | Progress Notes ---
DATE: 08/01/2019 SUBJECTIVE: Staff was spoken to. The patient is interviewed. Mood is noted to be less irritable. Affect is appropriate. Not suicidal or homicidal. Insight and judgment are noted to be improving. Impulse control seems to be fair, but the patient has a tendency to seek more and more medications. No side effects to the medications are noted at this time. The patient has been cooperative and is not threatening to harm self or others. ASSESSMENT: The patient is stabilizing. PLAN: To discharge the patient to the convalescent home for further followup. JOB# [id number]
--- NOTE | 2019-08-02 10:48 | Progress Notes ---
DATE: 08/01/2019 PSYCHOLOGY PROGRESS NOTE SUBJECTIVE: The patient is seen in his room sitting on the edge of his bed. The patient is interviewed and the case has been discussed with staff. The patient seems to be less agitated during this visit. Staff reports the patient continues to seek more medication; however, the patient has become more cooperative and responsive to staff direction. The patient is not demonstrating any agitated behavior or care refusal. OBJECTIVE: Mood is dysphoric. Affect is mood congruent. Thought process shows to be depressogenic as well as perseverating on medication . The patient denied any suicidal or homicidal ideation, plan or intention. The patient states he is not having thoughts of harming himself or others. The patient was able to verbally contract for safety. The patient is compliant with his medication and has become more cooperative and less threatening to harm himself or others. ASSESSMENT: The patient appears to be stabilizing. PLAN: The patient is accepting discharge. No followup is indicated as the patient is most likely discharging today according to staff. We provided coping strategies for chronic severe mental illness and for phase of life issues. We encouraged the patient to accept the limitations of his pharmacotherapeutic treatment and to engage with his medical caregivers at his placement to follow up and appropriately accept his overall care and treatment. We provided a simple stress management skill to assist the patient in increasing his frustration tolerance as well. Thank you, Dr. Magana for this consult and the opportunity to participate with you in this patient's care during his hospital course of treatment. [facility]# [id number] PHYLICIA
== END 2019-08-01 16:30 | DRG 885 ==
LOC: GERO 19:17
PROVIDERS: ADMIT Psychiatry & Neurology Psychiatry; ATTEND Psychiatry & Neurology Psychiatry
DX: F31.30 Bipolar disorder, current episode depressed, mild or moderate severity, unspecified (principal); R45.851 Suicidal ideations; F41.9 Anxiety disorder, unspecified; E11.9 Type 2 diabetes mellitus without complications; I10 Essential (primary) hypertension; K21.9 Gastro-esophageal reflux disease without esophagitis; Z79.899 Other long term (current) drug therapy
CPT/HCPCS: 82948-90; 83036-90; J7051; Z7610

== ENCOUNTER 2019-08-31 12:22 | Inpatient (IN) | payer MEDICARE ==
[2019-08-31 20:21] VITALS: BP 117/59
[2019-08-31] MEDS ORDERED: Maalox 30 mL Cup PO PRN (20:26)
[2019-08-31] MEDS ORDERED: Magnesium Hydroxide (MOM) 30 mL UDC PO PRN (20:26)
[2019-08-31] MEDS ORDERED: Hydrocodone/APAP 10 mg/325 mg Tab PO PRN (20:54)
[2019-09-01] MEDS: Pantoprazole 40 mg EC Tab PO SCH (06:31)
[2019-09-01] MEDS: Multivitamin Tab PO SCH (08:27)
[2019-09-01] MEDS ORDERED: Multivitamin Tab PO SCH (09:00)
[2019-09-01] MEDS ORDERED: Haloperidol Lactate 5 mg/mL 1mL Vial IM ONE (09:46)
--- NOTE | 2019-09-01 12:00 | Psychiatric Evaluation ---
DATE OF SERVICE: 09/01/2019 IDENTIFYING DATA: The patient is a 79-year-old male, resident of [facility]. JUSTIFICATION OF HOSPITALIZATION: The patient is admitted because of depression and thoughts of hurting others. CHIEF COMPLAINT: "I am afraid, I am going to . They are not giving me my medications." DIAGNOSES AT THE TIME OF ADMISSION: AXIS I: Bipolar disorder, depressed, with psychotic symptoms. AXIS II: None. AXIS III: As per Dr. Wheatley. HISTORY OF PRESENT ILLNESS: This is one of multiple psychiatric hospitalizations for this patient who is known to me. The patient has been here in 06/2019 and was stabilized and was discharged back to the [facility]. However, the patient is reporting that he is not getting his medications on time. The patient is screaming and yelling and has been not only having thoughts of hurting himself or has been having verbalizing thoughts of hurting others. The patient is stating that he needs 2 mg of Ativan to be given more often to contain his anxiety. The patient starts to show that the tremor, but the minute he is given some attention the tremor is dropping down. The patient at this time has been having problem with the shakes as per his verbalization. Sleep is noted to be poor and we are very closely monitoring his blood pressure because the blood pressure has been dropping because of the patient when medication has been denied, has been stating that he is going to be choking someone. PAST PSYCHIATRIC HISTORY: Please refer to the above. MEDICAL HISTORY: Physical examination is requested to be done by Dr. Wheatley. SUBSTANCE ABUSE HISTORY: None at this time. PHYSICAL OR SEXUAL ABUSE HISTORY: None. LEGAL PROBLEMS: None at this time. STRENGTH AND ASSETS: The patient is motivated. MENTAL STATUS EXAMINATION: The patient is a 78-year-old thin built, looking his stated age, superficially cooperative, very needy. Mood is noted to be irritable and angry. On one hand, the patient states that he is depressed and wanted to kill himself and other hand, the patient is stating that he is going to be punching someone. The patient has no insight. The patient's behavior appears to be goal directed at this time. The patient has paranoid delusions. The patient is suicidal and homicidal. The patient is alert and aware that he is in the hospital. Short term memory is noted to be poor. Long-term memory seems to be intact. The patient's insight and judgment are noted to be very much limited. Impulse control is noted to be extremely poor. Attention span and concentration are noted to be poor at this time. Please note that the patient's behavior is likely a danger to self and others. DIAGNOSTIC IMPRESSION: AXIS I: Bipolar disorder, depressed, with psychotic symptoms. AXIS II: None. AXIS III: As per Dr. Wheatley. IMMEDIATE TREATMENT PLAN: The patient's Depakote is going to be increased to 250 mg twice a day, Haldol is going to be given 1 mg IM in view of his threats to hurt someone else and the patient is going to be continued on 0.5 mg every 6 hours p.r.n. of the Ativan and Seroquel is going to be discontinued in the morning and the patient is going to be continued on 100 mg of the Seroquel at night time. ESTIMATED LENGTH OF STAY: 5-7 days. DISCHARGE CRITERIA: When he no longer a threat to self or others and be able to cope up with the stress. JOB# [id number]
[2019-09-01 12:03] LABS: CHOLESTEROL 133 mg/dL (<200); HDL -HIGH DENSITY LIPOPROTEIN 47 mg/dL (23-92); TRIGLYCERIDES 75 mg/dL (<150)
--- NOTE | 2019-09-01 12:29 | History & Physical ---
ADMIT DATE: 08/31/2019 CHIEF COMPLAINT: Anxiety, depression. HISTORY OF PRESENT ILLNESS: We have a 79-year-old male with bipolar, who is transferred here for suicidal thoughts and agitation. No nausea, vomiting, abdominal pain, or diarrhea. PAST MEDICAL HISTORY: Hypertension. PAST SURGICAL HISTORY: None. MEDICATIONS: List reviewed. ALLERGIES: None. SOCIAL HISTORY: Tobacco, IV drugs, ETOH negative. PHYSICAL EXAMINATION: VITAL SIGNS: Temperature 98.6, pulse 79, respirations 18, blood pressure 117/59. HEENT: Normocephalic and atraumatic head exam. NECK: Supple. CARDIOVASCULAR: Regular rate and rhythm. LUNGS: Clear. ABDOMEN: Soft, nontender. EXTREMITIES: No edema, cyanosis or clubbing. ASSESSMENT AND PLAN: 1. Agitation. 2. Bipolar. The patient will continue supportive care. JOB# [id number]
[2019-09-02] MEDS: Pantoprazole 40 mg EC Tab PO SCH (06:41)
[2019-09-02] MEDS: Multivitamin Tab PO SCH (08:23)
--- NOTE | 2019-09-02 12:54 | Internal Medicine Prog Note ---
Internal Medicine Subjective - Subjective Service Date: 09/02/19 Patient seen and examined:: without staff Patient is:: awake Per staff patient has:: no adverse event, no episodes of fall Internal Medicine Objective - Results Recent Labs: Laboratory Last Values POC Glucose 128 MG/DL (70 - 105) H 08/31/19 20:14 Triglycerides 75 mg/dL (<150) 09/01/19 10:30 Cholesterol 133 mg/dL (<200) 09/01/19 10:30 LDL Cholesterol Direct 70 mg/dL (75-193) L 09/01/19 10:30 HDL Cholesterol 47 mg/dL (23-92) 09/01/19 10:30 - Physical Exam Vitals and I&O: Vital Signs Temp 98.2 F 09/02/19 06:15 Pulse 99 09/02/19 06:15 Resp 20 09/02/19 06:15 BP 141/79 09/02/19 06:15 Pulse Ox 97 09/02/19 06:15 Intake & Output 09/01/19 09/02/19 09/02/19 18:59 06:59 18:59 Intake Total 960 240 Balance 960 240 Intake: Oral 960 240 Other: # Voids 3 2 # Bowel Movements 0 0 Active Medications: Current Medications Acetaminophen (Tylenol) 650 mg PO Q4H PRN PRN Reason: PAIN MILD (1-3) Stop: 10/30/19 23:35 Acetaminophen (Tylenol) 650 mg PO Q4H PRN PRN Reason: TEMP > 100 Stop: 10/31/19 02:06 Hydrocodone Bitart/Acetaminophen ([place] 10 Mg/325 Mg) 1 tab PO Q4H PRN PRN Reason: Pain (Severe 7-10) Stop: 10/30/19 20:53 Al Hydrox/Mg Hydrox/Simethicone (Maalox) 30 ml PO Q4HR PRN PRN Reason: GI DISTRESS Stop: 10/30/19 20:25 Diphenhydramine HCl (Benadryl) 25 mg PO BID [facility] Stop: 11/01/19 16:59 Divalproex Sodium (Depakote Dr) 250 mg PO Q12HR [facility]; Protocol Stop: 10/31/19 20:59 Last Admin: 09/02/19 08:23 Dose: 250 mg Docusate Sodium (Colace) 100 mg PO DAILY [facility] Stop: 10/31/19 08:59 Last Admin: 09/02/19 08:23 Dose: 100 mg Escitalopram Oxalate (Lexapro) 10 mg PO DAILY [facility]; Protocol Stop: 11/01/19 08:59 Last Admin: 09/02/19 09:58 Dose: 10 mg Haloperidol Lactate (Haldol) 2 mg PO BID [facility] Stop: 11/01/19 16:59 Ibuprofen (Advil) 600 mg PO Q8HR PRN PRN Reason: Pain (Moderate 4-6) Stop: 10/30/19 20:53 Loratadine (Claritin) 10 mg PO DAILY [facility] Stop: 10/31/19 08:59 Last Admin: 09/02/19 08:24 Dose: 10 mg Lorazepam (Ativan) 0.5 mg PO Q4HR PRN; Protocol PRN Reason: anxiety Stop: 10/30/19 20:51 Last Admin: 09/02/19 08:24 Dose: 0.5 mg Magnesium Hydroxide (Milk Of Magnesia) 30 ml PO HS PRN PRN Reason: Constipation Multivitamins/Vitamin C (Theragran) 1 tab PO DAILY [facility] Stop: 10/31/19 08:59 Last Admin: 09/02/19 08:23 Dose: 1 tab Pantoprazole Sodium (Protonix) 40 mg PO QDAC [facility] Stop: 10/31/19 07:29 Last Admin: 09/02/19 06:41 Dose: 40 mg Quetiapine Fumarate (Seroquel) 100 mg PO HS [facility]; Protocol Stop: 10/30/19 20:59 Last Admin: 09/01/19 20:47 Dose: 100 mg Tamsulosin HCl (Flomax) 0.4 mg PO DAILY [facility] Stop: 10/31/19 08:59 Last Admin: 09/02/19 08:23 Dose: 0.4 mg Zolpidem Tartrate (Ambien) 5 mg PO HS PRN PRN Reason: Insomnia Stop: 10/30/19 20:25 Last Admin: 09/01/19 20:48 Dose: 5 mg General: weak HEENT: NC/AT, PERRLA Neck: Supple - Procedures Procedures: Procedures Procedure Code Date OTHER GROUP THERAPY 94.44 12/31/12 Internal Medicine Assmt/Plan - Assessment Assessment: 1. Agitation 2. Dementia with behavioral manifestations - Plan Plan: continue supportive care cbc, cmp
--- NOTE | 2019-09-02 14:11 | Progress Notes ---
DATE: 09/02/2019 PSYCHIATRIC PROGRESS NOTE SUBJECTIVE: Staff was spoken to. The patient is interviewed. Mood is noted to be irritable. Affect is constricted. The patient is stating that he is not getting much of the medications, the way that he wanted and he wants 2 mg of Ativan to be given 2 to 3 times a day as he needs when he is having anxiety. The patient is not anxious at this time, but the minute he tries to talk to me he starts to shake and then stating that he cannot control. The patient is currently on 20 mg of the Lexapro and divalproex acid been given 250 mg twice a day in view of his threats to harm others. The patient is stating that he has been having urges to hurt someone and he wants medication. The patient has been given a dose of the Haldol yesterday to contain this aggressive behavior. In view of his threats to harm others and then irritability, I have decided to decrease the dose on the citalopram from 20 mg to 10 mg and then add the Haldol on a p.r.n. basis and use the Seroquel 100 mg at bedtime and follow the patient up. JOB# [id number]
[2019-09-02] MEDS ORDERED: Haloperidol Lactate Oral sol. 2 mg/mL Udc PO SCH (17:00)
[2019-09-03] MEDS: Pantoprazole 40 mg EC Tab PO SCH (06:31)
[2019-09-03] MEDS: Multivitamin Tab PO SCH (08:51)
[2019-09-03] MEDS ORDERED: Haloperidol Lactate Oral sol. 2 mg/mL Udc PO SCH (09:00)
--- NOTE | 2019-09-03 12:11 | Consultation ---
DATE OF CONSULTATION: 09/02/2019 TYPE OF CONSULTATION: Psychology. 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 The patient is a resident of [facility]. The following is by review of the medical record as well as by the patient's self-report. The patient is being admitted due to depression as well as thoughts of harming others. Upon interview, the patient presents as demanding medication, i.e., specifically to increase his Ativan because he states he feels he is out of control. The patient stated "I am afraid that I am going to if I don't get the medication that I need". The patient was seen here in June 2019 and returned to [facility]. Staff reports the patient continued to have screaming and yelling episodes and making demands as well as attempts at manipulating the staff to increase his medication by threatening to hurt himself or threatening to hurt others. The patient currently is stating that he has thoughts of hurting others. The patient is currently having difficulty responding to the clinical questions due to his perseveration and fixation on seeking more medication. PAST MEDICAL HISTORY: Please see history and physical by Dr. Wheatley. PAST PSYCHIATRIC HISTORY: Recent hospitalization here on the geropsychiatric unit in June 2019. The patient has had multiple previous psychiatric hospitalizations. The patient has a history of bipolar disorder with psychotic symptoms. The patient is under the care of a psychiatrist at his placement. SUBSTANCE ABUSE HISTORY: The patient did not answer these questions. BRIEF PSYCHOSOCIAL HISTORY: The patient did not answer questions about occupational or educational history. The patient's record indicates that he is and that he is a [employer]. The patient states that his daughter Juan is involved in his care. However, the patient was unable to state to what extent she is involved and the last time that he had any communication with her. The patient did not answer questions about having any history of physical or sexual abuse or any current legal problems. MENTAL STATUS EXAMINATION: The patient appears to be his stated age, but is thin. Attitude is superficially cooperative. Mood is irritable, anxious and angry. Eye contact is intermittent and avoidant. Speech is soft and delayed. The patient is stating that he is depressed and that he feels like he is going to possibly hurt someone. The patient admits that he has thoughts of ending his life, but had no specific plan. There is evidence of paranoid delusions. The patient denied any auditory or visual hallucinations. The patient endorsed feeling hopeless and helpless, as well as experiencing suicidal and homicidal ideation. The patient's behavior is difficult to redirect and is demanding as well as medication seeking. Impulse control is inadequate. Concentration is poor. Sensorium is alert and oriented to self and place only. The patient's memory is impaired for immediate, short term and bed bug exterminator dimensions. The patient's behavior is a danger to self and others at the time of this clinical interview. Insight is impaired. Judgment is impaired. DIAGNOSTIC IMPRESSION: AXIS I: Bipolar disorder, depressed, with psychotic symptoms. AXIS II: Deferred. AXIS III: Per Dr. Wheatley. TREATMENT PLAN: The patient has been seen by Dr. Magana for psychiatric evaluation and for the management of the patient's psychotropic medications. The patient's Depakote is increased to 250 mg twice a day. According to the attending psychiatrist, Haldol is going to be given at 1 mg IM p.r.n. in view of the patient's verbalization of harming others. Seroquel is being continued at 100 mg at nighttime. The patient also is on citalopram at 10 mg. according to the attending psychiatrist. We will provide de-escalation and limit setting. We will provide stress management to assist the patient in increasing his frustration tolerance. We will provide reality orientation, differentiation and integration. We will provide motivational enhancement for the patient to become compliant and stay compliant with all aspects of his care and treatment. We will provide suicide prevention interventions and encourage the patient on a daily basis to verbally contract for safety, i.e., no self-harm and no harm to others. We will continue to monitor the patient's behavior closely as impulse control is poor. The patient continues to be manipulative, i.e., medication seeking and possibly using threats of harming others and himself as an attempt to have his demands met for more medication. We will also continue with assessment regarding possible borderline personality traits and add treatment for these behavioral traits and manipulative behavior. We will also provide coping strategies for chronic severe mental illness as well as phase of life issues. We will encourage the patient to accept his current treatment. Of note, the patient might not be appropriate to return to his alf facility. Therefore, another type of placement may be more appropriate. The attending psychiatrist and assistant case manager will discuss this option with the patient. Thank you, Dr. Magana for this consult and the opportunity to participate with you in this patient's care. JOB# [id number] PHYLICIA
[2019-09-03 13:52] LABS: HEMATOCRIT 44.2 % (41.0-60); HEMOGLOBIN 14.4 gm/dL (12-16)
[2019-09-03 13:53] LABS: % BASOPHILS 0.4 % (0.0-2.0); % EOSINOPHILS 1.5 % (0.0-5.0); % LYMPHOCYTES 17.7 % (20.0-50.0); % MONOCYTES 8.6 % (2.0-10.0); % NEUTROPHILS 71.8 % (40.0-80.0); MEAN CORPUSCULAR HGB CONC 32.6 pg (28.0-36.0); NEUTROPHILE ABSOLUTE 4.7 Th/cmm (1.8-8.0); PLATELET COUNT 144 Th/cmm (150-400); RED CELL DISTRIBUTION WIDTH 14.9 % (11.5-20.0)
[2019-09-03 13:54] LABS: EOSINOPHILE ABSOLUTE 0.1 Th/cmm (0.1-0.4); LYMPHOCYTE ABSOLUTE 1.1 Th/cmm (1.5-3.0); MONOCYTE ABSOLUTE 0.6 Th/cmm (0.3-1.0)
[2019-09-03 14:43] LABS: RED BLOOD COUNT 4.81 MIL/uL (4.2-6.2)
[2019-09-03 14:44] LABS: WHITE BLOOD COUNT 6.5 K/uL (4.8-10.8)
[2019-09-03 14:44] LABS: BILIRUBIN,TOTAL 0.7 mg/dL (0.0-1.0); CALCIUM SERUM 9.5 mg/dL (8.4-10.2); POTASSIUM SERUM 4.4 mmol/L (3.5-5.1); TOTAL PROTEIN,SERUM 7.7 g/dL (6.4-8.3)
--- NOTE | 2019-09-03 15:17 | Progress Notes ---
DATE: 09/03/2019 PSYCHIATRIC PROGRESS NOTE SUBJECTIVE: Staff was spoken to. The patient is interviewed. Mood is noted to be irritable. Affect is constricted. Insight and judgment at this time are noted to be still impaired. Impulse control is noted to be limited. Coping skills are noted to be limited. The patient has been having difficult time to cope with the stress. No side effects to the medications are noted. The patient has paranoia and is stating that he is not getting the medications that he needed and at the same time, he claims that the medications are making him to be hyper and he is able to lose control. ASSESSMENT: The patient is still impulsive and psychotic. PLAN: To continue the patient with the current medications and follow up. JOB# [id number]
[2019-09-04] MEDS: Pantoprazole 40 mg EC Tab PO SCH (06:43)
[2019-09-04] MEDS: Multivitamin Tab PO SCH (08:43)
--- NOTE | 2019-09-04 13:18 | Progress Notes ---
DATE: 09/04/2019 SUBJECTIVE: Staff was spoken to. The patient is interviewed. Mood is noted to be irritable. Affect is constricted. The patient is isolative and withdrawn. The patient's coping skills are noted to be poor. The patient is stating that he needs medication for his anxiety. When the patient was observed the patient is not presenting with any tremor or any rising heart rate, but the patient has been pushing for higher dose of the benzodiazepines and pain medications. The patient's insight and judgment at this time are noted to be very much impaired. Impulse control is noted to be poor. The patient is not getting his way he is threatening that he might hurt others and he is being closely monitored at this time. JOB# [id number]
[2019-09-05] MEDS: Pantoprazole 40 mg EC Tab PO SCH (06:39)
[2019-09-05] MEDS: Multivitamin Tab PO SCH (08:28)
--- NOTE | 2019-09-05 11:24 | Progress Notes ---
DATE: 09/05/2019 SUBJECTIVE: Staff was spoken to. The patient is interviewed. The patient is irritable and angry. The patient is stating that he is not getting the medications that he is supposed to get. The patient stating that he did not sleep all night, but the patient is sleeping most of the time during the day and he is complaining that he did not have a maria ines sleep. Appetite is noted to be fair. The patient has been still voicing suicidal. There is no homicidal ideation is noted. When he does not get his way the patient has a tendency to come up with these threats to harm other people. ASSESSMENT: The patient is still depressed. PLAN: To continue the patient with the supportive therapy and followup. JOB# [id number]
--- NOTE | 2019-09-05 13:32 | Internal Medicine Prog Note ---
Internal Medicine Subjective - Subjective Service Date: 09/05/19 Patient seen and examined:: without staff Patient is:: awake Per staff patient has:: no adverse event, no episodes of fall Internal Medicine Objective - Results Result Diagrams: 09/02/19 11:42 09/03/19 11:42 Recent Labs: Laboratory Last Values WBC 6.5 K/uL (4.8-10.8) 09/02/19 11:42 RBC 4.81 MIL/uL (4.2-6.2) 09/02/19 11:42 Hgb 14.4 gm/dL (12-16) 09/02/19 11:42 Hct 44.2 % (41.0-60) 09/02/19 11:42 MCV 92.0 fl (80-99) 09/02/19 11:42 MCH 30.0 pg (27.0-31.0) 09/02/19 11:42 MCHC Differential 32.6 pg (28.0-36.0) 09/02/19 11:42 RDW 14.9 % (11.5-20.0) 09/02/19 11:42 Plt Count 144 Th/cmm (150-400) L 09/02/19 11:42 MPV 10.3 fl 09/02/19 11:42 Neutrophils % 71.8 % (40.0-80.0) 09/02/19 11:42 Lymphocytes % 17.7 % (20.0-50.0) L 09/02/19 11:42 Monocytes % 8.6 % (2.0-10.0) 09/02/19 11:42 Eosinophils % 1.5 % (0.0-5.0) 09/02/19 11:42 Basophils % 0.4 % (0.0-2.0) 09/02/19 11:42 Sodium 141 mmol/L (136-145) 09/03/19 11:42 Potassium 4.4 mmol/L (3.5-5.1) 09/03/19 11:42 Chloride 105 mmol/L (98-107) 09/03/19 11:42 Carbon Dioxide 28 mmol/L (23-29) 09/03/19 11:42 Anion Gap 12 (5-15) 09/03/19 11:42 BUN 26 mg/dL (8-21) H 09/03/19 11:42 Creatinine 1.00 mg/dL (0.70-1.30) 09/03/19 11:42 Glucose 96 mg/dL (70-99) 09/03/19 11:42 POC Glucose 128 MG/DL (70 - 105) H 08/31/19 20:14 Calcium 9.5 mg/dL (8.4-10.2) 09/03/19 11:42 Total Bilirubin 0.7 mg/dL (0.0-1.0) 09/03/19 11:42 AST 15 U/L (10-37) 09/03/19 11:42 ALT 20 U/L (12-78) 09/03/19 11:42 Alkaline Phosphatase 69 U/L (46-116) 09/03/19 11:42 Total Protein 7.7 g/dL (6.4-8.3) 09/03/19 11:42 Albumin 3.8 g/dL (3.4-5.0) 09/03/19 11:42 Triglycerides 75 mg/dL (<150) 09/01/19 10:30 Cholesterol 133 mg/dL (<200) 09/01/19 10:30 LDL Cholesterol Direct 70 mg/dL (75-193) L 09/01/19 10:30 HDL Cholesterol 47 mg/dL (23-92) 09/01/19 10:30 - Physical Exam Vitals and I&O: Vital Signs Temp 97.1 F 09/05/19 06:36 Pulse 90 09/05/19 12:19 Resp 18 09/05/19 07:44 BP 97/78 09/05/19 12:19 Pulse Ox 100 09/05/19 06:36 Intake & Output 09/04/19 09/05/19 09/05/19 18:59 06:59 18:59 Intake Total 960 240 Balance 960 240 Intake: Oral 960 240 Other: # Voids 4 1 # Bowel Movements 0 0 Active Medications: Current Medications Acetaminophen (Tylenol) 650 mg PO Q4H PRN PRN Reason: PAIN MILD (1-3) Stop: 10/30/19 23:35 Acetaminophen (Tylenol) 650 mg PO Q4H PRN PRN Reason: TEMP > 100 Stop: 10/31/19 02:06 Hydrocodone Bitart/Acetaminophen ([place] 10 Mg/325 Mg) 1 tab PO Q4H PRN PRN Reason: Pain (Severe 7-10) Stop: 10/30/19 20:53 Last Admin: 09/03/19 22:43 Dose: 1 tab Al Hydrox/Mg Hydrox/Simethicone (Maalox) 30 ml PO Q4HR PRN PRN Reason: GI DISTRESS Stop: 10/30/19 20:25 Diphenhydramine HCl (Benadryl) 25 mg PO BID [facility] Stop: 11/01/19 16:59 Last Admin: 09/05/19 08:28 Dose: 25 mg Divalproex Sodium (Depakote Dr) 250 mg PO Q12HR YASSINE; Protocol Stop: 10/31/19 20:59 Last Admin: 09/05/19 08:28 Dose: 250 mg Docusate Sodium (Colace) 100 mg PO DAILY [facility] Stop: 10/31/19 08:59 Last Admin: 09/05/19 08:28 Dose: 100 mg Escitalopram Oxalate (Lexapro) 10 mg PO DAILY [facility]; Protocol Stop: 11/01/19 08:59 Last Admin: 09/05/19 08:28 Dose: 10 mg Haloperidol (Haldol) 2 mg PO BID [facility]; Protocol Stop: 11/01/19 16:59 Last Admin: 09/05/19 08:28 Dose: 2 mg Ibuprofen (Motrin) 600 mg PO Q8HR PRN PRN Reason: Pain (Moderate 4-6) Stop: 10/30/19 20:53 Lisinopril (Zestril) 20 mg PO DAILY [facility] Stop: 11/03/19 08:59 Last Admin: 09/05/19 08:27 Dose: Not Given Loratadine (Claritin) 10 mg PO DAILY [facility] Stop: 10/31/19 08:59 Last Admin: 09/05/19 08:28 Dose: 10 mg Lorazepam (Ativan) 0.5 mg PO Q4HR PRN; Protocol PRN Reason: anxiety Stop: 10/30/19 20:51 Last Admin: 09/05/19 12:21 Dose: 0.5 mg Magnesium Hydroxide (Milk Of Magnesia) 30 ml PO HS PRN PRN Reason: Constipation Multivitamins/Vitamin C (Theragran) 1 tab PO DAILY [facility] Stop: 10/31/19 08:59 Last Admin: 09/05/19 08:28 Dose: 1 tab Pantoprazole Sodium (Protonix) 40 mg PO QDAC [facility] Stop: 10/31/19 07:29 Last Admin: 09/05/19 06:39 Dose: 40 mg Propranolol HCl (Inderal) 10 mg PO QID [facility] Stop: 11/03/19 08:59 Last Admin: 09/05/19 12:19 Dose: Not Given Quetiapine Fumarate (Seroquel) 100 mg PO HS [facility]; Protocol Stop: 10/30/19 20:59 Last Admin: 09/04/19 20:09 Dose: 100 mg Senna (Senna) 8.6 mg PO DAILY [facility] Stop: 11/03/19 08:59 Last Admin: 09/05/19 08:28 Dose: 8.6 mg Tamsulosin HCl (Flomax) 0.4 mg PO DAILY [facility] Stop: 10/31/19 08:59 Last Admin: 09/05/19 08:28 Dose: 0.4 mg Zolpidem Tartrate (Ambien) 5 mg PO HS PRN PRN Reason: Insomnia Stop: 10/30/19 20:25 Last Admin: 09/04/19 21:13 Dose: 5 mg General: weak HEENT: NC/AT, PERRLA Neck: Supple Lungs: CTAB Cardiovascular: RRR, Normal S1, Normal S2 Abdomen: soft Extremities: clear Neurological: no change - Procedures Procedures: Procedures Procedure Code Date OTHER GROUP THERAPY 94.44 12/31/12 Internal Medicine Assmt/Plan - Assessment Assessment: 1. Agitation 2. Dementia with behavioral manifestations - Plan Plan: continue supportive care cbc, cmp Nutritional Asmnt/Malnutr-PDOC - Dietary Evaluation Malnutrition Findings (Please click <Entered> for more info): Nutritional Asmnt/Malnutrition Start: 09/02/19 11: 56 Text: Status: Complete Freq: Protocol: Document 09/02/19 15:39 SEBASTIEN (Rec: 09/02/19 15:44 SEBASTIEN [id number]) Nutritional Asmnt/Malnutrition Patient General Information Nutritional Screening Moderate Risk Diagnosis Psychosis Pertinent Medical Hx/Surgical Hx HTN Subjective Information Pt is a 79-year-old male admitted on 08/30 d/t homicidal ideations. Pt is eating an estimated 33% on admit day Per Meal/Nutrition Activity Record. Dietary is currently providing an estimated 2100 kcals and 96 gm Pro, per Pt PO intake this is providing an estimated 693 kcals and 32 gm Pro to meet 33% kcal and 33% Pro needs. Pt. Visited pt. in room today, did not acknowledge any of my questions with any physical or verbal response. Pt. prior visit in June was eating 50- 70% of meals, will continue to monitor PO intake. Add Ensure Enlive BID to breakfast and dinner tray to increase caloric intake. Anthropometrics HT: 65 WT: 172 LB (78.18 kg) BMI: 20.39 (Normal) GI/ Skin Integrity GI: WNL, Soft, Non-tender BM: Not Noted I/O: 1200/Not Noted Skin: WNL, Intact, Dryness Natalio: 19 Diet Order: Cardiac Estimated Energy Needs: ( Geriatric, CBW) 8248-0668 kcals (25-30 kcals/ kg) 80-95 g Pro (1.0-1.2 g/kg) 2081-8948 ml (25-30 ml/kg) Current Diet Order/ Nutrition Support Cardiac Pertinent Medications Maalox (PRN), Colace, MOM (PRN ), Theragran, Protonix Pertinent Labs 08/31: Trig 75, Chol 133, LDL 70, HDL 47 08/30: Glucose 109, 128 Nutritional Hx/Data Height 1.96 m Height (Calculated Centimeters) 195.6 Current Weight (lbs) 78.018 kg Weight (Calculated Kilograms) 78.0 Weight (Calculated Grams) 82588.9 [place] Body Weight 208 LB (94.54 kg) % [place] Body Weight 83 Body Mass Index (BMI) 20.4 Weight Status Approriate GI Symptoms GI Symptoms None Last BM Not noted Skin Integrity/Comment: Skin: WNL, Intact, Dryness Natalio: 19 Current %PO Poor (25-49%) Estimated Nutritional Goals BEE in Kcals: Using Current wt Calories/Kcals/Kg 25-30 Kcals Calculated 1675-4586 Protein: Using Current wt Protein g/k.0-1.2 Protein Calculated 80-95 Fluid: ml 9317-4932 ml (25-30 ml/kg) Nutritional Problem No current Nutrition Prob Problem No nutrition diagnosis at this time. Etiology N/A Signs/Symptoms: N/A Malnutrition Related to Morbid Obesity Malnutrition related to morbid obesity No Intervention/Recommendation Comments 1.Continue Cardiac diet as tolerated. 2.Ensure Enlive BID. Expected Outcomes/Goals Expected Outcomes/Goals 1.PO intake to meet 75% of estimated nutritional needs. 2.Monitor PO intake, wt, nutrition related labs, and skin integrity. 3.F/U as moderate risk in 3-5 days, 09/04-09/06.
[2019-09-06] MEDS: Pantoprazole 40 mg EC Tab PO SCH (06:39)
[2019-09-06] MEDS: Multivitamin Tab PO SCH (08:41)
--- NOTE | 2019-09-06 11:14 | Progress Notes ---
DATE: 09/05/2019 PSYCHOLOGY PROGRESS NOTE SUBJECTIVE: The patient is seen in his room and is interviewed. Case is discussed with staff. The patient presents as medication seeking during this visit. The patient continued to ask for Ativan and is also asking the nurse that is seated outside the patient's door to his room for that medication. The patient states that he is not sleeping well at night; however, staff reports the patient sleeps throughout the day. The patient states that he still has suicidal thoughts, but does not have any thoughts of harming others. However, the patient does verbalize threats to harm other people when he is not getting his way or his demands aren't met. OBJECTIVE: Mood is irritable and depressed. Affect is constricted. Thought process includes perseveration on medication. The patient admits continuing to have suicidal thoughts. The patient's thought also includes a level of manipulation for secondary gain i.e., increased medication. The patient's behavior includes possible malingering. ASSESSMENT: The patient's depression persists as well as his medication seeking behavior. PLAN: We provided cognitive refocusing and cognitive behavioral redirection with respect to the patient's medication seeking behavior. We encouraged the patient to accept his current level of treatment with explanations regarding the type of medication and the amount of medication he receives. The patient's concept of pharmacotherapy is distorted and unrealistic. We continued to provide reality orientation and reality integration with respect to this. We encouraged the patient to verbalize his concerns. We encouraged the patient to verbally contract for safety, i.e., no self-harm and no harm to others. The patient was unable to do so during this session and at the end of this visit. We will follow up in 2-3 days to continue the present treatment if the patient is able to demonstrate the capacity to benefit from and the willingness to participate in psychotherapeutic interventions and supportive psychotherapy. JOB# [id number] PHYLICIA
--- NOTE | 2019-09-06 13:24 | Internal Medicine Prog Note ---
Internal Medicine Subjective - Subjective Service Date: 09/06/19 Patient seen and examined:: without staff Patient is:: awake Per staff patient has:: no adverse event, no episodes of fall Internal Medicine Objective - Results Result Diagrams: 09/02/19 11:42 09/03/19 11:42 Recent Labs: Laboratory Last Values WBC 6.5 K/uL (4.8-10.8) 09/02/19 11:42 RBC 4.81 MIL/uL (4.2-6.2) 09/02/19 11:42 Hgb 14.4 gm/dL (12-16) 09/02/19 11:42 Hct 44.2 % (41.0-60) 09/02/19 11:42 MCV 92.0 fl (80-99) 09/02/19 11:42 MCH 30.0 pg (27.0-31.0) 09/02/19 11:42 MCHC Differential 32.6 pg (28.0-36.0) 09/02/19 11:42 RDW 14.9 % (11.5-20.0) 09/02/19 11:42 Plt Count 144 Th/cmm (150-400) L 09/02/19 11:42 MPV 10.3 fl 09/02/19 11:42 Neutrophils % 71.8 % (40.0-80.0) 09/02/19 11:42 Lymphocytes % 17.7 % (20.0-50.0) L 09/02/19 11:42 Monocytes % 8.6 % (2.0-10.0) 09/02/19 11:42 Eosinophils % 1.5 % (0.0-5.0) 09/02/19 11:42 Basophils % 0.4 % (0.0-2.0) 09/02/19 11:42 Sodium 141 mmol/L (136-145) 09/03/19 11:42 Potassium 4.4 mmol/L (3.5-5.1) 09/03/19 11:42 Chloride 105 mmol/L (98-107) 09/03/19 11:42 Carbon Dioxide 28 mmol/L (23-29) 09/03/19 11:42 Anion Gap 12 (5-15) 09/03/19 11:42 BUN 26 mg/dL (8-21) H 09/03/19 11:42 Creatinine 1.00 mg/dL (0.70-1.30) 09/03/19 11:42 Glucose 96 mg/dL (70-99) 09/03/19 11:42 POC Glucose 128 MG/DL (70 - 105) H 08/31/19 20:14 Calcium 9.5 mg/dL (8.4-10.2) 09/03/19 11:42 Total Bilirubin 0.7 mg/dL (0.0-1.0) 09/03/19 11:42 AST 15 U/L (10-37) 09/03/19 11:42 ALT 20 U/L (12-78) 09/03/19 11:42 Alkaline Phosphatase 69 U/L (46-116) 09/03/19 11:42 Total Protein 7.7 g/dL (6.4-8.3) 09/03/19 11:42 Albumin 3.8 g/dL (3.4-5.0) 09/03/19 11:42 Triglycerides 75 mg/dL (<150) 09/01/19 10:30 Cholesterol 133 mg/dL (<200) 09/01/19 10:30 LDL Cholesterol Direct 70 mg/dL (75-193) L 09/01/19 10:30 HDL Cholesterol 47 mg/dL (23-92) 09/01/19 10:30 - Physical Exam Vitals and I&O: Vital Signs Temp 97.9 F 09/06/19 05:52 Pulse 83 09/06/19 13:10 Resp 18 09/06/19 07:17 BP 101/59 09/06/19 13:10 Pulse Ox 96 09/06/19 05:52 Intake & Output 09/05/19 09/06/19 09/06/19 18:59 06:59 18:59 Intake Total 1000 240 Balance 1000 240 Intake: Oral 1000 240 Other: # Voids 3 2 # Bowel Movements 0 Active Medications: Current Medications Acetaminophen (Tylenol) 650 mg PO Q4H PRN PRN Reason: PAIN MILD (1-3) Stop: 10/30/19 23:35 Acetaminophen (Tylenol) 650 mg PO Q4H PRN PRN Reason: TEMP > 100 Stop: 10/31/19 02:06 Hydrocodone Bitart/Acetaminophen ([place] 10 Mg/325 Mg) 1 tab PO Q4H PRN PRN Reason: Pain (Severe 7-10) Stop: 10/30/19 20:53 Last Admin: 09/03/19 22:43 Dose: 1 tab Al Hydrox/Mg Hydrox/Simethicone (Maalox) 30 ml PO Q4HR PRN PRN Reason: GI DISTRESS Stop: 10/30/19 20:25 Diphenhydramine HCl (Benadryl) 25 mg PO BID [facility] Stop: 11/01/19 16:59 Last Admin: 09/06/19 08:41 Dose: 25 mg Divalproex Sodium (Depakote Dr) 250 mg PO Q12HR [facility]; Protocol Stop: 10/31/19 20:59 Last Admin: 09/06/19 08:41 Dose: 250 mg Docusate Sodium (Colace) 100 mg PO DAILY [facility] Stop: 10/31/19 08:59 Last Admin: 09/06/19 08:41 Dose: 100 mg Escitalopram Oxalate (Lexapro) 10 mg PO DAILY [facility]; Protocol Stop: 11/01/19 08:59 Last Admin: 09/06/19 08:40 Dose: 10 mg Haloperidol (Haldol) 5 mg PO BID [facility]; Protocol Stop: 11/05/19 16:59 Ibuprofen (Motrin) 600 mg PO Q8HR PRN PRN Reason: Pain (Moderate 4-6) Stop: 10/30/19 20:53 Lisinopril (Zestril) 20 mg PO DAILY [facility] [place] Stop: 11/03/19 08:59 Last Admin: 09/06/19 08:41 Dose: 20 mg Loratadine (Claritin) 10 mg PO DAILY [facility] Stop: 10/31/19 08:59 Last Admin: 09/06/19 08:41 Dose: 10 mg Lorazepam (Ativan) 0.5 mg PO Q4HR PRN; Protocol PRN Reason: anxiety Stop: 10/30/19 20:51 Last Admin: 09/06/19 11:26 Dose: 0.5 mg Magnesium Hydroxide (Milk Of Magnesia) 30 ml PO HS PRN PRN Reason: Constipation Multivitamins/Vitamin C (Theragran) 1 tab PO DAILY [facility] [place] Stop: 10/31/19 08:59 Last Admin: 09/06/19 08:41 Dose: 1 tab Pantoprazole Sodium (Protonix) 40 mg PO QDAC [facility] Stop: 10/31/19 07:29 Last Admin: 09/06/19 06:39 Dose: 40 mg Propranolol HCl (Inderal) 10 mg PO QID [facility] [place] Stop: 11/03/19 08:59 Last Admin: 09/06/19 13:10 Dose: Not Given Quetiapine Fumarate (Seroquel) 50 mg PO HS [facility]; Protocol Stop: 11/05/19 20:59 Senna (Senna) 8.6 mg PO DAILY [facility] [place] Stop: 11/03/19 08:59 Last Admin: 09/06/19 08:41 Dose: 8.6 mg Tamsulosin HCl (Flomax) 0.4 mg PO DAILY [facility] Stop: 10/31/19 08:59 Last Admin: 09/06/19 08:41 Dose: 0.4 mg Zolpidem Tartrate (Ambien) 5 mg PO HS PRN PRN Reason: Insomnia Stop: 10/30/19 20:25 Last Admin: 09/05/19 20:51 Dose: 5 mg General: weak HEENT: NC/AT, PERRLA Neck: Supple Lungs: CTAB Cardiovascular: RRR, Normal S1, Normal S2 Abdomen: soft Extremities: clear Neurological: no change - Procedures Procedures: Procedures Procedure Code Date OTHER GROUP THERAPY 94.44 12/31/12 Internal Medicine Assmt/Plan - Assessment Assessment: 1. Thrombocytopenia 2. Dementia with behavioral manifestations 3. Anxiety - Plan Plan: repeat CBC continue supportive care d/w r.n. Nutritional Asmnt/Malnutr-PDOC - Dietary Evaluation Malnutrition Findings (Please click <Entered> for more info): Nutritional Asmnt/Malnutrition Start: 09/02/19 11: 56 Text: Status: Complete Freq: Protocol: Document 09/02/19 15:39 SEBASTIEN (Rec: 09/02/19 15:44 SEBASTIEN [id number]) Nutritional Asmnt/Malnutrition Patient General Information Nutritional Screening Moderate Risk Diagnosis Psychosis Pertinent Medical Hx/Surgical Hx HTN Subjective Information Pt is a 79-year-old male admitted on 08/30 d/t homicidal ideations. Pt is eating an estimated 33% on admit day Per Meal/Nutrition Activity Record. Dietary is currently providing an estimated 2100 kcals and 96 gm Pro, per Pt PO intake this is providing an estimated 693 kcals and 32 gm Pro to meet 33% kcal and 33% Pro needs. Pt. Visited pt. in room today, did not acknowledge any of my questions with any physical or verbal response. Pt. prior visit in June was eating 50- 70% of meals, will continue to monitor PO intake. Add Ensure Enlive BID to breakfast and dinner tray to increase caloric intake. Anthropometrics HT: 65 WT: 172 LB (78.18 kg) BMI: 20.39 (Normal) GI/ Skin Integrity GI: WNL, Soft, Non-tender BM: Not Noted I/O: 1200/Not Noted Skin: WNL, Intact, Dryness Natalio: 19 Diet Order: Cardiac Estimated Energy Needs: ( Geriatric, CBW) 8651-3550 kcals (25-30 kcals/ kg) 80-95 g Pro (1.0-1.2 g/kg) 0057-8489 ml (25-30 ml/kg) Current Diet Order/ Nutrition Support Cardiac Pertinent Medications Maalox (PRN), Colace, MOM (PRN ), Theragran, Protonix Pertinent Labs 08/31: Trig 75, Chol 133, LDL 70, HDL 47 08/30: Glucose 109, 128 Nutritional Hx/Data Height 1.96 m Height (Calculated Centimeters) 195.6 Current Weight (lbs) 78.018 kg Weight (Calculated Kilograms) 78.0 Weight (Calculated Grams) 57527.9 [place] Body Weight 208 LB (94.54 kg) % [place] Body Weight 83 Body Mass Index (BMI) 20.4 Weight Status Approriate GI Symptoms GI Symptoms None Last BM Not noted Skin Integrity/Comment: Skin: WNL, Intact, Dryness Natalio: 19 Current %PO Poor (25-49%) Estimated Nutritional Goals BEE in Kcals: Using Current wt Calories/Kcals/Kg 25-30 Kcals Calculated 0782-4722 Protein: Using Current wt Protein g/k.0-1.2 Protein Calculated 80-95 Fluid: ml 4000-5182 ml (25-30 ml/kg) Nutritional Problem No current Nutrition Prob Problem No nutrition diagnosis at this time. Etiology N/A Signs/Symptoms: N/A Malnutrition Related to Morbid Obesity Malnutrition related to morbid obesity No Intervention/Recommendation Comments 1.Continue Cardiac diet as tolerated. 2.Ensure Enlive BID. Expected Outcomes/Goals Expected Outcomes/Goals 1.PO intake to meet 75% of estimated nutritional needs. 2.Monitor PO intake, wt, nutrition related labs, and skin integrity. 3.F/U as moderate risk in 3-5 days, 09/04-09/06.
--- NOTE | 2019-09-06 14:39 | Progress Notes ---
DATE: 09/06/2019 SUBJECTIVE: Staff was spoken to. The patient is interviewed. Mood is noted to be depressed. Affect is constricted. The patient is stating that he is not ready to be going to the new place and he is very much worried that if he is going to go back. He is going to be hurting himself. The patient is still isolative and withdrawn and is stating that his anxiety is a major concern and the patient's family has been calling and stating that the patient needs to be on Haldol Decanoate. The patient has been informed of the same and the patient is hesitant. The patient is going to be currently on 2 mg twice a day of the Haldol twice a day and it is going to be increased to 5 mg twice a day and the patient is going to be continued on the Seroquel at night time at a lower dose. ASSESSMENT: The patient is still impulsive and paranoid and is not contacting for safety. PLAN: To continue the patient with the current medications. I encouraged the patient to verbalize the concerns rather than to act out. JOB# [id number]
[2019-09-07] MEDS: Pantoprazole 40 mg EC Tab PO SCH (06:34)
[2019-09-07] MEDS: Multivitamin Tab PO SCH (08:12)
--- NOTE | 2019-09-07 14:07 | Progress Notes ---
DATE: 09/07/2019 PSYCHIATRIC PROGRESS NOTE SUBJECTIVE: Staff was spoken to. The patient is interviewed. Mood is noted to be depressed. Affect is constricted. The patient is isolative and withdrawn. The patient is sleeping most of the time. The patient wants to be medicated and so that he is not going to be losing control. The patient is having difficult time to get into the groups at this time. The patient is currently on escitalopram 10 mg. I am planning to increase the dose on the medication to 20 mg because of his depression and the patient is going to be encouraged to participate in the groups and verbalize the concerns and the patient has been closely monitored for any aggressive behavior towards the other patients and family preservation caseworker is going to be requested at this time to be getting in touch with the facility to see if they are willing to take the patient for further treatment on an outpatient basis. The patient's Seroquel is going to be decreased to 25 mg at bedtime and the patient is going to be followed up with the supportive therapy. JOB# [id number]
--- NOTE | 2019-09-07 18:25 | Internal Medicine Prog Note ---
Internal Medicine Subjective - Subjective Service Date: 09/07/19 Patient seen and examined:: without staff (no chest pain no sob) Patient is:: awake Per staff patient has:: no adverse event, no episodes of fall Internal Medicine Objective - Results Result Diagrams: 09/02/19 11:42 09/03/19 11:42 Recent Labs: Laboratory Last Values WBC 6.5 K/uL (4.8-10.8) 09/02/19 11:42 RBC 4.81 MIL/uL (4.2-6.2) 09/02/19 11:42 Hgb 14.4 gm/dL (12-16) 09/02/19 11:42 Hct 44.2 % (41.0-60) 09/02/19 11:42 MCV 92.0 fl (80-99) 09/02/19 11:42 MCH 30.0 pg (27.0-31.0) 09/02/19 11:42 MCHC Differential 32.6 pg (28.0-36.0) 09/02/19 11:42 RDW 14.9 % (11.5-20.0) 09/02/19 11:42 Plt Count 144 Th/cmm (150-400) L 09/02/19 11:42 MPV 10.3 fl 09/02/19 11:42 Neutrophils % 71.8 % (40.0-80.0) 09/02/19 11:42 Lymphocytes % 17.7 % (20.0-50.0) L 09/02/19 11:42 Monocytes % 8.6 % (2.0-10.0) 09/02/19 11:42 Eosinophils % 1.5 % (0.0-5.0) 09/02/19 11:42 Basophils % 0.4 % (0.0-2.0) 09/02/19 11:42 Sodium 141 mmol/L (136-145) 09/03/19 11:42 Potassium 4.4 mmol/L (3.5-5.1) 09/03/19 11:42 Chloride 105 mmol/L (98-107) 09/03/19 11:42 Carbon Dioxide 28 mmol/L (23-29) 09/03/19 11:42 Anion Gap 12 (5-15) 09/03/19 11:42 BUN 26 mg/dL (8-21) H 09/03/19 11:42 Creatinine 1.00 mg/dL (0.70-1.30) 09/03/19 11:42 Glucose 96 mg/dL (70-99) 09/03/19 11:42 POC Glucose 128 MG/DL (70 - 105) H 08/31/19 20:14 Calcium 9.5 mg/dL (8.4-10.2) 09/03/19 11:42 Total Bilirubin 0.7 mg/dL (0.0-1.0) 09/03/19 11:42 AST 15 U/L (10-37) 09/03/19 11:42 ALT 20 U/L (12-78) 09/03/19 11:42 Alkaline Phosphatase 69 U/L (46-116) 09/03/19 11:42 Total Protein 7.7 g/dL (6.4-8.3) 09/03/19 11:42 Albumin 3.8 g/dL (3.4-5.0) 09/03/19 11:42 Triglycerides 75 mg/dL (<150) 09/01/19 10:30 Cholesterol 133 mg/dL (<200) 09/01/19 10:30 LDL Cholesterol Direct 70 mg/dL (75-193) L 09/01/19 10:30 HDL Cholesterol 47 mg/dL (23-92) 09/01/19 10:30 - Physical Exam Vitals and I&O: Vital Signs Temp 98.1 F 09/07/19 14:00 Pulse 78 09/07/19 17:04 Resp 18 09/07/19 14:00 BP 153/106 09/07/19 17:04 Pulse Ox 96 09/07/19 14:00 Intake & Output 09/06/19 09/07/19 09/07/19 18:59 06:59 18:59 Intake Total 850 120 360 Balance 850 120 360 Intake: Oral 850 120 360 Other: # Voids 3 2 2 # Bowel Movements 0 0 0 Active Medications: Current Medications Acetaminophen (Tylenol) 650 mg PO Q4H PRN PRN Reason: PAIN MILD (1-3) Stop: 10/30/19 23:35 Acetaminophen (Tylenol) 650 mg PO Q4H PRN PRN Reason: TEMP > 100 Stop: 10/31/19 02:06 Hydrocodone Bitart/Acetaminophen ([place] 10 Mg/325 Mg) 1 tab PO Q4H PRN PRN Reason: Pain (Severe 7-10) Stop: 10/30/19 20:53 Last Admin: 09/03/19 22:43 Dose: 1 tab Al Hydrox/Mg Hydrox/Simethicone (Maalox) 30 ml PO Q4HR PRN PRN Reason: GI DISTRESS Stop: 10/30/19 20:25 Diphenhydramine HCl (Benadryl) 25 mg PO BID [facility] Stop: 11/01/19 16:59 Last Admin: 09/07/19 17:04 Dose: 25 mg Divalproex Sodium (Depakote Dr) 250 mg PO Q12HR [facility]; Protocol Stop: 10/31/19 20:59 Last Admin: 09/07/19 08:13 Dose: 250 mg Docusate Sodium (Colace) 100 mg PO DAILY [facility] Stop: 10/31/19 08:59 Last Admin: 09/07/19 08:13 Dose: 100 mg Escitalopram Oxalate (Lexapro) 20 mg PO DAILY [facility]; Protocol Stop: 11/06/19 08:59 Haloperidol (Haldol) 5 mg PO BID [facility]; Protocol Stop: 11/05/19 16:59 Last Admin: 09/07/19 17:04 Dose: 5 mg Ibuprofen (Motrin) 600 mg PO Q8HR PRN PRN Reason: Pain (Moderate 4-6) Stop: 10/30/19 20:53 Lisinopril (Zestril) 20 mg PO DAILY [facility] Stop: 11/03/19 08:59 Last Admin: 09/07/19 08:14 Dose: 20 mg Loratadine (Claritin) 10 mg PO DAILY [facility] Stop: 10/31/19 08:59 Last Admin: 09/07/19 08:13 Dose: 10 mg Lorazepam (Ativan) 0.5 mg PO Q4HR PRN; Protocol PRN Reason: anxiety Stop: 10/30/19 20:51 Last Admin: 09/06/19 23:00 Dose: 0.5 mg Magnesium Hydroxide (Milk Of Magnesia) 30 ml PO HS PRN PRN Reason: Constipation Multivitamins/Vitamin C (Theragran) 1 tab PO DAILY [facility] Stop: 10/31/19 08:59 Last Admin: 09/07/19 08:12 Dose: 1 tab Pantoprazole Sodium (Protonix) 40 mg PO QDAC [facility] Stop: 10/31/19 07:29 Last Admin: 09/07/19 06:34 Dose: 40 mg Propranolol HCl (Inderal) 10 mg PO QID [facility] Stop: 11/03/19 08:59 Last Admin: 09/07/19 17:04 Dose: 10 mg Quetiapine Fumarate (Seroquel) 25 mg PO HS [facility]; Protocol Stop: 11/06/19 20:59 Senna (Senna) 8.6 mg PO DAILY [facility] Stop: 11/03/19 08:59 Last Admin: 09/07/19 08:13 Dose: 8.6 mg Tamsulosin HCl (Flomax) 0.4 mg PO DAILY [facility] Stop: 10/31/19 08:59 Last Admin: 09/07/19 08:12 Dose: 0.4 mg Zolpidem Tartrate (Ambien) 5 mg PO HS PRN PRN Reason: Insomnia Stop: 10/30/19 20:25 Last Admin: 09/06/19 20:32 Dose: 5 mg General: weak HEENT: NC/AT, PERRLA Neck: Supple Lungs: CTAB Cardiovascular: RRR, Normal S1, Normal S2 Abdomen: soft Extremities: clear Neurological: no change - Procedures Procedures: Procedures Procedure Code Date OTHER GROUP THERAPY 94.44 12/31/12 Internal Medicine Assmt/Plan - Assessment Assessment: 1. HTN, poorly controlled 2. Dementia with behavioral manifestations 3. Anxiety - Plan Plan: continue zestril and inderal BP not controlled continue supportive care d/w r.n. and reviewed medical records Nutritional Asmnt/Malnutr-PDOC - Dietary Evaluation Malnutrition Findings (Please click <Entered> for more info): Nutritional Asmnt/Malnutrition Start: 09/02/19 11: 56 Text: Status: Complete Freq: Protocol: Document 09/02/19 15:39 SEBASTIEN (Rec: 09/02/19 15:44 SEBASTIEN [id number]) Nutritional Asmnt/Malnutrition Patient General Information Nutritional Screening Moderate Risk Diagnosis Psychosis Pertinent Medical Hx/Surgical Hx HTN Subjective Information Pt is a 79-year-old male admitted on 08/30 d/t homicidal ideations. Pt is eating an estimated 33% on admit day Per Meal/Nutrition Activity Record. Dietary is currently providing an estimated 2100 kcals and 96 gm Pro, per Pt PO intake this is providing an estimated 693 kcals and 32 gm Pro to meet 33% kcal and 33% Pro needs. Pt. Visited pt. in room today, did not acknowledge any of my questions with any physical or verbal response. Pt. prior visit in June was eating 50- 70% of meals, will continue to monitor PO intake. Add Ensure Enlive BID to breakfast and dinner tray to increase caloric intake. Anthropometrics HT: 65 WT: 172 LB (78.18 kg) BMI: 20.39 (Normal) GI/ Skin Integrity GI: WNL, Soft, Non-tender BM: Not Noted I/O: 1200/Not Noted Skin: WNL, Intact, Dryness Natalio: 19 Diet Order: Cardiac Estimated Energy Needs: ( Geriatric, CBW) 3520-1065 kcals (25-30 kcals/ kg) 80-95 g Pro (1.0-1.2 g/kg) 5541-0964 ml (25-30 ml/kg) Current Diet Order/ Nutrition Support Cardiac Pertinent Medications Maalox (PRN), Colace, MOM (PRN ), Theragran, Protonix Pertinent Labs 08/31: Trig 75, Chol 133, LDL 70, HDL 47 08/30: Glucose 109, 128 Nutritional Hx/Data Height 1.96 m Height (Calculated Centimeters) 195.6 Current Weight (lbs) 78.018 kg Weight (Calculated Kilograms) 78.0 Weight (Calculated Grams) 84937.9 Odd Body Weight 208 LB (94.54 kg) % Odd Body Weight 83 Body Mass Index (BMI) 20.4 Weight Status Approriate GI Symptoms GI Symptoms None Last BM Not noted Skin Integrity/Comment: Skin: WNL, Intact, Dryness Natalio: 19 Current %PO Poor (25-49%) Estimated Nutritional Goals BEE in Kcals: Using Current wt Calories/Kcals/Kg 25-30 Kcals Calculated 5614-2734 Protein: Using Current wt Protein g/k.0-1.2 Protein Calculated 80-95 Fluid: ml 1094-8118 ml (25-30 ml/kg) Nutritional Problem No current Nutrition Prob Problem No nutrition diagnosis at this time. Etiology N/A Signs/Symptoms: N/A Malnutrition Related to Morbid Obesity Malnutrition related to morbid obesity No Intervention/Recommendation Comments 1.Continue Cardiac diet as tolerated. 2.Ensure Enlive BID. Expected Outcomes/Goals Expected Outcomes/Goals 1.PO intake to meet 75% of estimated nutritional needs. 2.Monitor PO intake, wt, nutrition related labs, and skin integrity. 3.F/U as moderate risk in 3-5 days, 09/04-09/06.
[2019-09-08] MEDS: Pantoprazole 40 mg EC Tab PO SCH (06:31)
[2019-09-08] MEDS: Multivitamin Tab PO SCH (08:43)
--- NOTE | 2019-09-08 11:24 | Progress Notes ---
DATE: 09/08/2019 SUBJECTIVE: Staff was spoken to. The patient is interviewed. Mood is noted to be depressed. Affect is constricted. The patient is still isolative and withdrawn. The patient has been sleepy most of the time and has been stating that since the increase of the medication, he has been feeling very drowsy. No aggressive behavior is reported at this time. Plan to decrease the dose on the Haldol to 2 mg twice a day and continue the escitalopram 20 mg in the morning and the patient is on 25 mg of the Seroquel at night time. PLAN: To continue the patient with these current medications. I encouraged the patient to verbalize the concerns rather than to act out. JOB# [id number]
--- NOTE | 2019-09-08 11:37 | Progress Notes ---
DATE: 09/07/2019 PSYCHOLOGY PROGRESS NOTE SUBJECTIVE: The patient is seen in his room. The patient is somnolent, but not arousable verbally. The patient was arousable by touch. The patient states that he is very depressed. Staff reports the patient sleeps most of the time and when he is up, he is requesting medication. The patient has been closely monitored for aggressive behavior towards peers and staff. The patient is easily irritated and is demanding with respect to seeking more medication. This is consistent behavior on the unit according to the staff. OBJECTIVE: Mood is depressed and irritable. Affect is constricted. Thought process shows to be fixated with perseveration on requesting more medication. The patient stated he is not having thoughts of harming other people at this time. The patient did not answer the questions about experiencing self-harm or suicidal thoughts. The patient denied any hallucinations. The patient's behavior is withdrawn and isolative and fatigued as well as anergic and amotivated. ASSESSMENT: The patient's depression and poor redirectability continue. PLAN: We provided remotivation for the patient to become compliant and accept the current pharmacotherapeutic interventions. We provided coping strategies for phase of life issues. The patient did not participate in the cognitive behavioral therapy offered for depression. The patient lacks insight into his illness; therefore, insight-oriented therapy and reflective listening has not been effective. We continue with motivational enhancement and encouraged the patient to verbalize his concerns. The patient is denying any thoughts of self-harm or harm to others at this point. The patient did not verbally contract for safety. We will follow up in 2-3 days to continue the present treatment. We will provide daily opportunities for the patient to verbally contract for safety for no self-harm and no harm to others. According to the staff, the social service technician contacted [facility] and was informed that they would accept the patient back; however, they are encouraging a different placement if possible. Discharge and placement to be determined with the attending psychiatrist. This freelance copywriter will reassess the patient's capacity to benefit from psychology services on the next visit. Behavioral management and safety issues are still being provided. JOB# [id number] PHYLICIA
--- NOTE | 2019-09-08 15:26 | Internal Medicine Prog Note ---
Internal Medicine Subjective - Subjective Service Date: 09/08/19 Patient seen and examined:: without staff Patient is:: awake Per staff patient has:: no adverse event, no episodes of fall Internal Medicine Objective - Results Result Diagrams: 09/02/19 11:42 09/03/19 11:42 Recent Labs: Laboratory Last Values WBC 6.5 K/uL (4.8-10.8) 09/02/19 11:42 RBC 4.81 MIL/uL (4.2-6.2) 09/02/19 11:42 Hgb 14.4 gm/dL (12-16) 09/02/19 11:42 Hct 44.2 % (41.0-60) 09/02/19 11:42 MCV 92.0 fl (80-99) 09/02/19 11:42 MCH 30.0 pg (27.0-31.0) 09/02/19 11:42 MCHC Differential 32.6 pg (28.0-36.0) 09/02/19 11:42 RDW 14.9 % (11.5-20.0) 09/02/19 11:42 Plt Count 144 Th/cmm (150-400) L 09/02/19 11:42 MPV 10.3 fl 09/02/19 11:42 Neutrophils % 71.8 % (40.0-80.0) 09/02/19 11:42 Lymphocytes % 17.7 % (20.0-50.0) L 09/02/19 11:42 Monocytes % 8.6 % (2.0-10.0) 09/02/19 11:42 Eosinophils % 1.5 % (0.0-5.0) 09/02/19 11:42 Basophils % 0.4 % (0.0-2.0) 09/02/19 11:42 Sodium 141 mmol/L (136-145) 09/03/19 11:42 Potassium 4.4 mmol/L (3.5-5.1) 09/03/19 11:42 Chloride 105 mmol/L (98-107) 09/03/19 11:42 Carbon Dioxide 28 mmol/L (23-29) 09/03/19 11:42 Anion Gap 12 (5-15) 09/03/19 11:42 BUN 26 mg/dL (8-21) H 09/03/19 11:42 Creatinine 1.00 mg/dL (0.70-1.30) 09/03/19 11:42 Glucose 96 mg/dL (70-99) 09/03/19 11:42 POC Glucose 128 MG/DL (70 - 105) H 08/31/19 20:14 Calcium 9.5 mg/dL (8.4-10.2) 09/03/19 11:42 Total Bilirubin 0.7 mg/dL (0.0-1.0) 09/03/19 11:42 AST 15 U/L (10-37) 09/03/19 11:42 ALT 20 U/L (12-78) 09/03/19 11:42 Alkaline Phosphatase 69 U/L (46-116) 09/03/19 11:42 Total Protein 7.7 g/dL (6.4-8.3) 09/03/19 11:42 Albumin 3.8 g/dL (3.4-5.0) 09/03/19 11:42 Triglycerides 75 mg/dL (<150) 09/01/19 10:30 Cholesterol 133 mg/dL (<200) 09/01/19 10:30 LDL Cholesterol Direct 70 mg/dL (75-193) L 09/01/19 10:30 HDL Cholesterol 47 mg/dL (23-92) 09/01/19 10:30 - Physical Exam Vitals and I&O: Vital Signs Temp 98 F 09/08/19 14:00 Pulse 72 09/08/19 14:00 Resp 20 09/08/19 14:00 BP 105/64 09/08/19 14:00 Pulse Ox 97 09/08/19 14:00 Intake & Output 09/07/19 09/08/19 09/08/19 18:59 06:59 18:59 Intake Total 360 120 Balance 360 120 Intake: Oral 360 120 Other: # Voids 2 2 # Bowel Movements 0 0 Active Medications: Current Medications Acetaminophen (Tylenol) 650 mg PO Q4H PRN PRN Reason: PAIN MILD (1-3) Stop: 10/30/19 23:35 Acetaminophen (Tylenol) 650 mg PO Q4H PRN PRN Reason: TEMP > 100 Stop: 10/31/19 02:06 Hydrocodone Bitart/Acetaminophen ([place] 10 Mg/325 Mg) 1 tab PO Q4H PRN PRN Reason: Pain (Severe 7-10) Stop: 10/30/19 20:53 Last Admin: 09/03/19 22:43 Dose: 1 tab Al Hydrox/Mg Hydrox/Simethicone (Maalox) 30 ml PO Q4HR PRN PRN Reason: GI DISTRESS Stop: 10/30/19 20:25 Diphenhydramine HCl (Benadryl) 25 mg PO BID [facility] Stop: 11/01/19 16:59 Last Admin: 09/08/19 08:43 Dose: 25 mg Divalproex Sodium (Depakote Dr) 250 mg PO Q12HR [facility]; Protocol Stop: 10/31/19 20:59 Last Admin: 09/08/19 08:43 Dose: 250 mg Docusate Sodium (Colace) 100 mg PO DAILY [facility] Stop: 10/31/19 08:59 Last Admin: 09/08/19 08:42 Dose: 100 mg Escitalopram Oxalate (Lexapro) 20 mg PO DAILY [facility]; Protocol Stop: 11/06/19 08:59 Last Admin: 09/08/19 08:43 Dose: 20 mg Haloperidol (Haldol) 2 mg PO BID PRN; Protocol PRN Reason: Agitation Stop: 11/07/19 08:59 Ibuprofen (Motrin) 600 mg PO Q8HR PRN PRN Reason: Pain (Moderate 4-6) Stop: 10/30/19 20:53 Lisinopril (Zestril) 20 mg PO DAILY [facility] Stop: 11/03/19 08:59 Last Admin: 09/08/19 08:43 Dose: 20 mg Loratadine (Claritin) 10 mg PO DAILY [facility] Stop: 10/31/19 08:59 Last Admin: 09/08/19 08:43 Dose: 10 mg Lorazepam (Ativan) 0.5 mg PO Q4HR PRN; Protocol PRN Reason: anxiety Stop: 10/30/19 20:51 Last Admin: 09/08/19 14:05 Dose: 0.5 mg Magnesium Hydroxide (Milk Of Magnesia) 30 ml PO HS PRN PRN Reason: Constipation Multivitamins/Vitamin C (Theragran) 1 tab PO DAILY [facility] Stop: 10/31/19 08:59 Last Admin: 09/08/19 08:43 Dose: 1 tab Pantoprazole Sodium (Protonix) 40 mg PO QDAC [facility] Stop: 10/31/19 07:29 Last Admin: 09/08/19 06:31 Dose: 40 mg Propranolol HCl (Inderal) 10 mg PO QID [facility] Stop: 11/03/19 08:59 Last Admin: 09/08/19 13:50 Dose: 10 mg Quetiapine Fumarate (Seroquel) 25 mg PO HS [facility]; Protocol Stop: 11/06/19 20:59 Last Admin: 09/07/19 20:41 Dose: 25 mg Senna (Senna) 8.6 mg PO DAILY [facility] Stop: 11/03/19 08:59 Last Admin: 09/08/19 08:43 Dose: 8.6 mg Tamsulosin HCl (Flomax) 0.4 mg PO DAILY [facility] Stop: 10/31/19 08:59 Last Admin: 09/08/19 08:42 Dose: 0.4 mg Zolpidem Tartrate (Ambien) 5 mg PO HS PRN PRN Reason: Insomnia Stop: 10/30/19 20:25 Last Admin: 09/07/19 20:48 Dose: 5 mg General: weak HEENT: NC/AT, PERRLA Neck: Supple Lungs: CTAB Cardiovascular: RRR, Normal S1, Normal S2 Abdomen: soft Extremities: clear Neurological: no change - Procedures Procedures: Procedures Procedure Code Date OTHER GROUP THERAPY 94.44 12/31/12 Internal Medicine Assmt/Plan - Assessment Assessment: 1. HTN 2. Dementia with behavioral manifestations 3. Anxiety 4. Weight loss - Plan Plan: continue zestril and inderal repeat labs including cbc, cmp, tsh to understand cause of weight loss d/w r.n. and reviewed medical records Nutritional Asmnt/Malnutr-PDOC - Dietary Evaluation Malnutrition Findings (Please click <Entered> for more info): Nutritional Asmnt/Malnutrition Start: 09/02/19 11: 56 Text: Status: Complete Freq: Protocol: Document 09/02/19 15:39 SEBASTIEN (Rec: 09/02/19 15:44 SEBASTIEN [id number]) Nutritional Asmnt/Malnutrition Patient General Information Nutritional Screening Moderate Risk Diagnosis Psychosis Pertinent Medical Hx/Surgical Hx HTN Subjective Information Pt is a 79-year-old male admitted on 08/30 d/t homicidal ideations. Pt is eating an estimated 33% on admit day Per Meal/Nutrition Activity Record. Dietary is currently providing an estimated 2100 kcals and 96 gm Pro, per Pt PO intake this is providing an estimated 693 kcals and 32 gm Pro to meet 33% kcal and 33% Pro needs. Pt. Visited pt. in room today, did not acknowledge any of my questions with any physical or verbal response. Pt. prior visit in June was eating 50- 70% of meals, will continue to monitor PO intake. Add Ensure Enlive BID to breakfast and dinner tray to increase caloric intake. Anthropometrics HT: 65 WT: 172 LB (78.18 kg) BMI: 20.39 (Normal) GI/ Skin Integrity GI: WNL, Soft, Non-tender BM: Not Noted I/O: 1200/Not Noted Skin: WNL, Intact, Dryness Natalio: 19 Diet Order: Cardiac Estimated Energy Needs: ( Geriatric, CBW) 0328-6910 kcals (25-30 kcals/ kg) 80-95 g Pro (1.0-1.2 g/kg) 8199-2970 ml (25-30 ml/kg) Current Diet Order/ Nutrition Support Cardiac Pertinent Medications Maalox (PRN), Colace, MOM (PRN ), Theragran, Protonix Pertinent Labs 08/31: Trig 75, Chol 133, LDL 70, HDL 47 08/30: Glucose 109, 128 Nutritional Hx/Data Height 1.96 m Height (Calculated Centimeters) 195.6 Current Weight (lbs) 78.018 kg Weight (Calculated Kilograms) 78.0 Weight (Calculated Grams) 44900.9 [place] Body Weight 208 LB (94.54 kg) % [place] Body Weight 83 Body Mass Index (BMI) 20.4 Weight Status Approriate GI Symptoms GI Symptoms None Last BM Not noted Skin Integrity/Comment: Skin: WNL, Intact, Dryness Natalio: 19 Current %PO Poor (25-49%) Estimated Nutritional Goals BEE in Kcals: Using Current wt Calories/Kcals/Kg 25-30 Kcals Calculated 9694-4243 Protein: Using Current wt Protein g/k.0-1.2 Protein Calculated 80-95 Fluid: ml 0270-2299 ml (25-30 ml/kg) Nutritional Problem No current Nutrition Prob Problem No nutrition diagnosis at this time. Etiology N/A Signs/Symptoms: N/A Malnutrition Related to Morbid Obesity Malnutrition related to morbid obesity No Intervention/Recommendation Comments 1.Continue Cardiac diet as tolerated. 2.Ensure Enlive BID. Expected Outcomes/Goals Expected Outcomes/Goals 1.PO intake to meet 75% of estimated nutritional needs. 2.Monitor PO intake, wt, nutrition related labs, and skin integrity. 3.F/U as moderate risk in 3-5 days, 09/04-09/06.
[2019-09-09] MEDS: Pantoprazole 40 mg EC Tab PO SCH (06:36)
[2019-09-09] MEDS: Multivitamin Tab PO SCH (09:10)
[2019-09-09 11:41] LABS: HEMOGLOBIN 14.5 gm/dL (12-16)
[2019-09-09 11:42] LABS: HEMATOCRIT 43.8 % (41.0-60); MEAN CELL VOLUME 91.4 fl (80-99); MEAN CORPUSCULAR HEMOGLOBIN 30.3 pg (27.0-31.0); MEAN CORPUSCULAR HGB CONC 33.1 pg (28.0-36.0)
[2019-09-09 11:43] LABS: % BASOPHILS 0.7 % (0.0-2.0); % EOSINOPHILS 3.3 % (0.0-5.0); % LYMPHOCYTES 28.1 % (20.0-50.0); % MONOCYTES 9.8 % (2.0-10.0); % NEUTROPHILS 58.1 % (40.0-80.0); LYMPHOCYTE ABSOLUTE 1.5 Th/cmm (1.5-3.0); MONOCYTE ABSOLUTE 0.5 Th/cmm (0.3-1.0); NEUTROPHILE ABSOLUTE 3.1 Th/cmm (1.8-8.0); PLATELET COUNT 165 Th/cmm (150-400)
[2019-09-09 11:44] LABS: EOSINOPHILE ABSOLUTE 0.2 Th/cmm (0.1-0.4)
[2019-09-09 11:47] LABS: WHITE BLOOD COUNT 5.4 K/uL (4.8-10.8)
[2019-09-09 12:33] LABS: POTASSIUM SERUM 4.4 mmol/L (3.5-5.1)
[2019-09-09 12:34] LABS: CALCIUM SERUM 9.2 mg/dL (8.4-10.2); CREATININE - SERUM 1.18 mg/dL (0.70-1.30)
[2019-09-09 12:35] LABS: BILIRUBIN,TOTAL 0.6 mg/dL (0.0-1.0); TOTAL PROTEIN,SERUM 6.9 g/dL (6.4-8.3)
--- NOTE | 2019-09-09 17:39 | Internal Medicine Prog Note ---
Internal Medicine Subjective - Subjective Service Date: 09/09/19 Patient seen and examined:: without staff Patient is:: awake Per staff patient has:: no adverse event, no episodes of fall Internal Medicine Objective - Results Result Diagrams: 09/09/19 10:20 09/09/19 10:20 Recent Labs: Laboratory Last Values WBC 5.4 K/uL (4.8-10.8) 09/09/19 10:20 RBC 4.80 MIL/uL (4.2-6.2) 09/09/19 10:20 Hgb 14.5 gm/dL (12-16) 09/09/19 10:20 Hct 43.8 % (41.0-60) 09/09/19 10:20 MCV 91.4 fl (80-99) 09/09/19 10:20 MCH 30.3 pg (27.0-31.0) 09/09/19 10:20 MCHC Differential 33.1 pg (28.0-36.0) 09/09/19 10:20 RDW 15.0 % (11.5-20.0) 09/09/19 10:20 Plt Count 165 Th/cmm (150-400) 09/09/19 10:20 MPV 10.3 fl 09/09/19 10:20 Neutrophils % 58.1 % (40.0-80.0) 09/09/19 10:20 Lymphocytes % 28.1 % (20.0-50.0) 09/09/19 10:20 Monocytes % 9.8 % (2.0-10.0) 09/09/19 10:20 Eosinophils % 3.3 % (0.0-5.0) 09/09/19 10:20 Basophils % 0.7 % (0.0-2.0) 09/09/19 10:20 Sodium 137 mmol/L (136-145) 09/09/19 10:20 Potassium 4.4 mmol/L (3.5-5.1) 09/09/19 10:20 Chloride 103 mmol/L (98-107) 09/09/19 10:20 Carbon Dioxide 28 mmol/L (23-29) 09/09/19 10:20 Anion Gap 10 (5-15) 09/09/19 10:20 BUN 41 mg/dL (8-21) H 09/09/19 10:20 Creatinine 1.18 mg/dL (0.70-1.30) 09/09/19 10:20 Glucose 115 mg/dL (70-99) H 09/09/19 10:20 POC Glucose 128 MG/DL (70 - 105) H 08/31/19 20:14 Calcium 9.2 mg/dL (8.4-10.2) 09/09/19 10:20 Total Bilirubin 0.6 mg/dL (0.0-1.0) 09/09/19 10:20 AST 23 U/L (10-37) 09/09/19 10:20 ALT 29 U/L (12-78) 09/09/19 10:20 Alkaline Phosphatase 69 U/L (46-116) 09/09/19 10:20 Total Protein 6.9 g/dL (6.4-8.3) 09/09/19 10:20 Albumin 3.6 g/dL (3.4-5.0) 09/09/19 10:20 Triglycerides 75 mg/dL (<150) 09/01/19 10:30 Cholesterol 133 mg/dL (<200) 09/01/19 10:30 LDL Cholesterol Direct 70 mg/dL (75-193) L 09/01/19 10:30 HDL Cholesterol 47 mg/dL (23-92) 09/01/19 10:30 TSH 0.51 uIU/ml (0.34-5.60) 09/09/19 10:20 - Physical Exam Vitals and I&O: Vital Signs Temp 98.2 F 09/09/19 14:00 Pulse 103 09/09/19 17:11 Resp 20 09/09/19 14:00 BP 152/87 09/09/19 17:11 Pulse Ox 97 09/09/19 14:00 Intake & Output 09/08/19 09/09/19 09/09/19 18:59 06:59 18:59 Intake Total 480 240 Balance 480 240 Intake: Oral 480 240 Other: # Voids 4 2 # Bowel Movements 0 Active Medications: Current Medications Acetaminophen (Tylenol) 650 mg PO Q4H PRN PRN Reason: PAIN MILD (1-3) Stop: 10/30/19 23:35 Acetaminophen (Tylenol) 650 mg PO Q4H PRN PRN Reason: TEMP > 100 Stop: 10/31/19 02:06 Hydrocodone Bitart/Acetaminophen ([place]ton 10 Mg/325 Mg) 1 tab PO Q4H PRN PRN Reason: Pain (Severe 7-10) Stop: 10/30/19 20:53 Last Admin: 09/03/19 22:43 Dose: 1 tab Al Hydrox/Mg Hydrox/Simethicone (Maalox) 30 ml PO Q4HR PRN PRN Reason: GI DISTRESS Stop: 10/30/19 20:25 Diphenhydramine HCl (Benadryl) 25 mg PO BID [facility] Stop: 11/01/19 16:59 Last Admin: 09/09/19 17:11 Dose: 25 mg Divalproex Sodium (Depakote Dr) 250 mg PO Q12HR YASSINE; Protocol Stop: 10/31/19 20:59 Last Admin: 09/09/19 09:09 Dose: 250 mg Docusate Sodium (Colace) 100 mg PO DAILY [facility] Stop: 10/31/19 08:59 Last Admin: 09/09/19 09:10 Dose: 100 mg Escitalopram Oxalate (Lexapro) 20 mg PO DAILY [facility]; Protocol Stop: 11/06/19 08:59 Last Admin: 09/09/19 09:12 Dose: 20 mg Haloperidol (Haldol) 2 mg PO BID PRN; Protocol PRN Reason: Agitation Stop: 11/07/19 08:59 Ibuprofen (Motrin) 600 mg PO Q8HR PRN PRN Reason: Pain (Moderate 4-6) Stop: 10/30/19 20:53 Last Admin: 09/09/19 05:21 Dose: 600 mg Lisinopril (Zestril) 20 mg PO DAILY [facility] Stop: 11/03/19 08:59 Last Admin: 09/09/19 09:11 Dose: 20 mg Loratadine (Claritin) 10 mg PO DAILY [facility] Stop: 10/31/19 08:59 Last Admin: 09/09/19 09:13 Dose: 10 mg Lorazepam (Ativan) 0.5 mg PO Q4HR PRN; Protocol PRN Reason: anxiety Stop: 10/30/19 20:51 Last Admin: 09/08/19 14:05 Dose: 0.5 mg Magnesium Hydroxide (Milk Of Magnesia) 30 ml PO HS PRN PRN Reason: Constipation Multivitamins/Vitamin C (Theragran) 1 tab PO DAILY YASSINE Stop: 10/31/19 08:59 Last Admin: 09/09/19 09:10 Dose: 1 tab Pantoprazole Sodium (Protonix) 40 mg PO QDAC YASSINE Stop: 10/31/19 07:29 Last Admin: 09/09/19 06:36 Dose: 40 mg Propranolol HCl (Inderal) 10 mg PO QID YASSINE Stop: 11/03/19 08:59 Last Admin: 09/09/19 17:11 Dose: 10 mg Quetiapine Fumarate (Seroquel) 25 mg PO HS YASSINE; Protocol Stop: 11/06/19 20:59 Last Admin: 09/08/19 21:36 Dose: 25 mg Senna (Senna) 8.6 mg PO DAILY [facility] Stop: 11/03/19 08:59 Last Admin: 09/09/19 09:09 Dose: 8.6 mg Tamsulosin HCl (Flomax) 0.4 mg PO DAILY [facility] Stop: 10/31/19 08:59 Last Admin: 09/09/19 09:10 Dose: 0.4 mg Zolpidem Tartrate (Ambien) 5 mg PO HS PRN PRN Reason: Insomnia Stop: 10/30/19 20:25 Last Admin: 09/08/19 21:36 Dose: 5 mg General: weak HEENT: NC/AT, PERRLA Neck: Supple Lungs: CTAB Cardiovascular: RRR, Normal S1, Normal S2 Abdomen: soft Extremities: clear Neurological: no change - Procedures Procedures: Procedures Procedure Code Date CT HEAD/BRAIN W/O DYE 60344 08/31/19 OTHER GROUP THERAPY 94.44 12/31/12 Internal Medicine Assmt/Plan - Assessment Assessment: 1. HTN 2. Dementia with behavioral manifestations 3. Anxiety 4. Weight loss - Plan Plan: continue zestril and inderal labs reviewed. BUN is elevated which will be repeated at alf d/w r.n. and reviewed medical records Nutritional Asmnt/Malnutr-PDOC - Dietary Evaluation Malnutrition Findings (Please click <Entered> for more info): Nutritional Asmnt/Malnutrition Start: 09/02/19 11: 56 Text: Status: Complete Freq: Protocol: Document 09/02/19 15:39 SEBASTIEN (Rec: 09/02/19 15:44 SEBASTIEN [id number]) Nutritional Asmnt/Malnutrition Patient General Information Nutritional Screening Moderate Risk Diagnosis Psychosis Pertinent Medical Hx/Surgical Hx HTN Subjective Information Pt is a 79-year-old male admitted on 08/30 d/t homicidal ideations. Pt is eating an estimated 33% on admit day Per Meal/Nutrition Activity Record. Dietary is currently providing an estimated 2100 kcals and 96 gm Pro, per Pt PO intake this is providing an estimated 693 kcals and 32 gm Pro to meet 33% kcal and 33% Pro needs. Pt. Visited pt. in room today, did not acknowledge any of my questions with any physical or verbal response. Pt. prior visit in June was eating 50- 70% of meals, will continue to monitor PO intake. Add Ensure Enlive BID to breakfast and dinner tray to increase caloric intake. Anthropometrics HT: 65 WT: 172 LB (78.18 kg) BMI: 20.39 (Normal) GI/ Skin Integrity GI: WNL, Soft, Non-tender BM: Not Noted I/O: 1200/Not Noted Skin: WNL, Intact, Dryness Natalio: 19 Diet Order: Cardiac Estimated Energy Needs: ( Geriatric, CBW) 1981-2860 kcals (25-30 kcals/ kg) 80-95 g Pro (1.0-1.2 g/kg) 2647-8399 ml (25-30 ml/kg) Current Diet Order/ Nutrition Support Cardiac Pertinent Medications Maalox (PRN), Colace, MOM (PRN ), Theragran, Protonix Pertinent Labs 08/31: Trig 75, Chol 133, LDL 70, HDL 47 08/30: Glucose 109, 128 Nutritional Hx/Data Height 1.96 m Height (Calculated Centimeters) 195.6 Current Weight (lbs) 78.018 kg Weight (Calculated Kilograms) 78.0 Weight (Calculated Grams) 88819.9 [place] Body Weight 208 LB (94.54 kg) % [place] Body Weight 83 Body Mass Index (BMI) 20.4 Weight Status Approriate GI Symptoms GI Symptoms None Last BM Not noted Skin Integrity/Comment: Skin: WNL, Intact, Dryness Natalio: 19 Current %PO Poor (25-49%) Estimated Nutritional Goals BEE in Kcals: Using Current wt Calories/Kcals/Kg 25-30 Kcals Calculated 0851-5926 Protein: Using Current wt Protein g/k.0-1.2 Protein Calculated 80-95 Fluid: ml 5791-1801 ml (25-30 ml/kg) Nutritional Problem No current Nutrition Prob Problem No nutrition diagnosis at this time. Etiology N/A Signs/Symptoms: N/A Malnutrition Related to Morbid Obesity Malnutrition related to morbid obesity No Intervention/Recommendation Comments 1.Continue Cardiac diet as tolerated. 2.Ensure Enlive BID. Expected Outcomes/Goals Expected Outcomes/Goals 1.PO intake to meet 75% of estimated nutritional needs. 2.Monitor PO intake, wt, nutrition related labs, and skin integrity. 3.F/U as moderate risk in 3-5 days, 09/04-09/06.
--- NOTE | 2019-09-09 18:39 | Progress Notes ---
DATE: 09/09/2019 PSYCHIATRIC PROGRESS NOTE SUBJECTIVE: Staff was spoken to. The patient is interviewed. Mood is noted to be irritable. Affect is constricted. The patient is isolative and withdrawn. The patient's insight and judgment are noted to be still impaired. The patient is refusing to eat or drink and even refusing to take his medications. The patient has been stating that he is anxious. The patient is stating that he would like to leave and he needs to be on more of Ativan. The patient has no insight into his illness. ASSESSMENT: The patient is still depressed. PLAN: To get his CBC done and then verify if the patient needs the electrolytes done and then to see if the patient needs to be transferred to the Med/Surg Unit for rehydration. JOB# [id number]
[2019-09-10] MEDS: Pantoprazole 40 mg EC Tab PO SCH (06:47)
[2019-09-10] MEDS: Multivitamin Tab PO SCH (08:53)
--- NOTE | 2019-09-10 17:03 | Progress Notes ---
DATE: 09/10/2019 SUBJECTIVE: Staff was spoken to. The patient is interviewed. Mood is noted to be depressed. Affect is constricted. The patient is isolative and withdrawn. Insight and judgment are noted to be still impaired. Impulse control is noted to be limited. Coping skills are noted to be limited. The patient has been having difficult time to cope with the stress. The patient is stating that he does not want to get up and he wants to be in bed all the time and he wants medication for anxiety. The patient's daughter is reported to be in town and is willing to visit the patient. ASSESSMENT: The patient is still depressed. PLAN: To continue the patient with the current medications and followup. JOB# [id number]
--- NOTE | 2019-09-10 19:35 | Progress Notes ---
DATE: 09/10/2019 PSYCHOLOGY PROGRESS NOTE SUBJECTIVE: The patient is seen. Case is discussed with staff. The patient continues to be irritable as well as verbally demanding medication. Staff reports the patient is totally isolative and withdrawn and only comes out of his room to inquire about medication to the staff. The patient has been refusing to eat at times. The patient continues to state that he needs more Ativan. This is persistent. The patient has very poor insight into his illness and is continuing to be poorly redirectable. OBJECTIVE: Mood is irritable and depressed as well as anxious. Affect is sullen and constricted. Thought process shows to include perseveration on medication as well as some level of malingering i.e., manipulation to obtain more medication. The patient continues to state that he has no suicidal ideation, plan, or intention or any other thoughts of harming others. The patient denied any hallucinations. The patient continues to be depressed and withdrawn as well as medication seeking. ASSESSMENT: As above. The patient's depression persists. PLAN: The attending psychiatrist has indicated the patient had a CBC done. The record also indicates based on the lab results a transfer to the medical unit may be considered. We provided remotivation for the patient to become compliant and stay compliant with all aspects of his care and treatment. We encouraged the patient to eat and drink and accept his current medications. Staff is monitoring the patient very closely. The patient is not ready for step down to be discharged back to his shelter facility, which is [facility]. The patient may be transferred to the med/surg unit at [facility] depending on lab results. If the patient remains on the unit, we will continue to provide the present treatment as requested. JOB# [id number] PHYLICIA
[2019-09-11] MEDS: Pantoprazole 40 mg EC Tab PO SCH (06:50)
[2019-09-11] MEDS: Multivitamin Tab PO SCH (08:26)
--- NOTE | 2019-09-11 15:06 | Progress Notes ---
DATE: 09/11/2019 SUBJECTIVE: Staff was spoken to. The patient is interviewed. Mood is noted to be dysphoric. Coping skills are noted to be still poor. Insight and judgment are noted to be still impaired. Impulse control seems to be improving. No side effects to the medications are noted. The patient tends to be most of the time medicated and wants to be there in his bed. Coping skills at this time are noted to be poor. No side effects. The patient has been able to tolerate the medication so far. The patient has been stating that he has been in pain and anxiety and needs to be medicated. The patient is sleeping most of the time and we are not seeing the patient to get into the groups and hence I have decided last week to get the patient back to the facility and we did the blood work and blood work seems to be okay, except for the increased level of BUN and the patient is encouraged to have fluids and possibly the patient is going to be discharged tomorrow to the [facility]. JOB# [id number]
[2019-09-12] MEDS: Pantoprazole 40 mg EC Tab PO SCH (06:31)
[2019-09-12] MEDS: Multivitamin Tab PO SCH (08:52)
--- NOTE | 2019-09-12 09:48 | Discharge Summary ---
DATE OF DISCHARGE: 09/12/2019 IDENTIFYING DATA: The patient is a 79-year-old male, resident of [facility]. JUSTIFICATION OF HOSPITALIZATION: The patient is admitted because of depression and thoughts of hurting others. CHIEF COMPLAINT: "I am afraid, I am going to . They are not giving me my medications." HISTORY OF PRESENT ILLNESS: Please refer to the 09/01/2019 dictation done by me. HOSPITAL COURSE AND RESPONSE TO TREATMENT: The patient has been observed on inpatient unit, provided with supportive psychotherapy. The patient has been isolative, withdrawn, and has been reluctant to participate in any of the groups. The patient has been continued on the valproic acid that was given up to 250 mg twice a day for the impulsive behavior. Escitalopram was increased up to 20 mg and haloperidol has been given on a p.r.n. basis and the patient has been continued with the Seroquel 25 mg at bedtime. With these medications, the patient has been observed and was noted to be doing fairly well and hence was discharged on 09/12/2019 with recommendation that he is going to be seeking treatment on an outpatient basis. MENTAL STATUS EXAMINATION: At the time of the discharge, the patient noted to be less irritable. Affect is appropriate. Not suicidal or homicidal. The patient, however, is noted to be poorly motivated, has been isolating himself. The patient is alert and oriented to time, place, person and situation. No aggressive behavior is noted at this time. The patient is of average intelligence and is able to verbalize the concerns, but the patient is mainly focused on pain medications. DIAGNOSES AT THE TIME OF THE DISCHARGE: AXIS I: Bipolar disorder, depressed. AXIS II: None. AXIS III: As per Dr. Wheatley. AFTERCARE PLAN: The patient is discharged to [facility] to be followed up at [facility]. JOB# [id number]
--- NOTE | 2019-09-13 10:54 | Progress Notes ---
DATE: 09/12/2019 PSYCHOLOGY PROGRESS NOTE SUBJECTIVE: The patient is seen in his room and is interviewed. Case is discussed with staff. Staff reports the patient is most likely discharging today. The patient continued to focus on getting medication and that the medication he is being given is not the right dosage. The patient seems to be approaching baseline according to the staff. The patient has been compliant with the medication with no behavioral outbursts. The patient denied any thoughts of harming others or harming himself. OBJECTIVE: Mood is less irritable. Affect is constricted. Thought process includes perseveration on medication. The patient denied any suicidal or homicidal ideation, plan or intention. The patient was able to verbally contract for safety. The patient denied any hallucinations or delusions. The patient's behavior remains amotivated, anhedonic and isolative as well as medication seeking. He is alert and oriented to self, place, and situation. No aggressive behavior has been reported by staff. ASSESSMENT: The patient is approaching baseline. PLAN: Staff reports the patient is discharging today and returning to [facility]. The patient continues to be focused on medication, specifically pain medications and Ativan. We provided remotivation for the patient to stay compliant with all aspects of his care and treatment. We reviewed coping strategies with the patient for phase of life issues as well as for chronic severe mental illness and adjustment to the patient's limitations and restrictions. We encouraged the patient to appropriately interact with the staff at his facility. The patient was able to verbally contract for safety. No followup is indicated as the patient is discharging today. Thank you, Dr. Magana for this consult and the opportunity to participate with you in this patient's care. JOB# [id number] PHYLICIA
== END 2019-09-12 14:10 | DRG 884 ==
LOC: GERO 19:49
PROVIDERS: ADMIT Psychiatry & Neurology Psychiatry; ATTEND Psychiatry & Neurology Psychiatry
DX: F03.91 Unspecified dementia, unspecified severity, with behavioral disturbance (principal); F31.9 Bipolar disorder, unspecified; I10 Essential (primary) hypertension; F41.9 Anxiety disorder, unspecified; D69.6 Thrombocytopenia, unspecified
CPT/HCPCS: 36415-UA; 80053-TC; 80061-TC; 82948-90; 83036-90; 84443-TC; 85025-TC; J1630; U0003-CS; Z7610